=== PATIENT | male | born 1975 | race African-American/Black ===

== ENCOUNTER 2023-08-23 12:50 | Inpatient (IN) | payer OTHER, SELFPAY ==
[2023-08-21 16:54] VITALS: BP 149/103; BMI 31.8
[2023-08-21] MEDS: NSS 1000 IV ×2 (17:32→18:24)
[2023-08-21 17:49] LABS: % Basophils 0.8 % (0-2); % Eosinophils 0.3 % (0-6); % Immature Granulocytes 0.6 % (0-0.5); % Lymphocytes 24.4 % (20.5-51.1); % Monocytes 10.8 % (1.7-9.3); % Neutrophils 63.1 % (42.2-75.2); Absolute Lymphocytes 0.9 10^3/uL (1.2-3.4); Absolute Monocytes 0.4 10^3/uL (0.1-0.6); Absolute Neutrophils 2.3 10^3/uL (1.4-6.5); Hematocrit 39.1 % (39.0-52.0); Hemoglobin 12.9 g/dL (13.0-18.0); Mean Corpuscular Hgb 22.9 pg (27.0-31.0); Mean Corpuscular Volume 69.3 fL (80.0-94.0); Mean Platelet Volume 10.4 fL (7.4-10.4); Nucleated Red Blood Cells % 0 % (-); Platelet Count 245 10^3/uL (130-400); Red Blood Cell Count 5.64 10^6/uL (4.70-6.10); White Blood Cell Count 3.6 10^3/uL (4.8-10.8)
[2023-08-21 17:59] LABS: Blood Urea Nitrogen 16 mg/dl (9-20); Calcium 9.7 mg/dl (8.4-10.2); Carbon Dioxide 22 mmol/L (22-30); Chloride 101 mmol/L (98-107); Estimated Creatinine Clearance 95 ml/min; Glucose 97 mg/dl (70-99); Potassium 4.4 mmol/L (3.5-5.1); Sodium 135 mmol/L (135-145); eGFR > 60.00
--- NOTE | 2023-08-21 18:01 | ED.GENMED ---
History of Present Illness
General
Chief Complaint: Anal/Rectal Problem
Time Seen by Provider: 08/21/23 17:13
Travel History
Have you had any contact with someone who has COVID-19?: No
Do you have any symptoms of coronavirus? Fever > 100 degrees, chills, cough, shortness of breath, sore throat, loss of taste or smell, muscle aches, or headache?: No
History of Present Illness
History of Present Illness:
HPI: The patient been having abdominal pain and perianal pain for the past 1 month. The patient was admitted at [place] about a month ago and was found to be positive for Campylobacter and was placed on Rocephin, Flagyl and discharged on azithromycin.
CT at that time showed widespread lymphadenopathy with some concern for malignancy as well as proctocolitis. He tells me that the colorectal surgeon who sent him here was planning on doing exam under anesthesia tomorrow.
EXAM:
GENERAL: Well appearing in mild distress
HEENT: Moist oral mucosa
CARDIOVASCULAR: No murmurs, normal heart rate, regular rhythm, No chest wall tenderness
PULMONARY: No respiratory distress, breath sounds are clear and equal
ABDOMEN: Soft with no peritoneal signs, mild diffuse tenderness
PERIANAL: There appears to be a moderate-sized thrombosed external hemorrhoid which is tender to palpation
NEUROLOGIC: Excellent strength all extremities, no coordination deficits
PSYCHIATRIC: Appropriate mental status, normal insight and judgement
EXTREMITIES: Nontender, no edema, moves all extremities equally
SKIN: No rash, no lesions, scar noted to the right for
TIME OF INITIAL ENCOUNTER:
6 PM
NUMBER AND COMPLEXITY OF PROBLEMS ADDRESSED AT THE ENCOUNTER
� Chronic conditions affecting care: Other than earlier this month, there is no significant past medical history
� Acute Exacerbation and/or Progression of Chronic Illness: This is a subacute problem
� Differential Diagnosis includes: Malignancy, perianal/perirectal abscess, external hemorrhoid
AMOUNT AND/OR COMPLEXITY OF DATA TO BE REVIEWED AND ANALYZED
� I performed an independent evaluation of and my interpretation is:
EKG:
CT: CT imaging personally viewed and I agree with radiologist interpretation of abnormality in the rectosigmoid
X-rays:
Laboratory Studies: White count, hemoglobin 12.9, chemistries unremarkable
Other:
� Review of other/old records: I reviewed the records from [place] as summarized above
� Clinical information was obtained by an independent historian: None needed
� Prescriptions/Medications Considered but not given:
� Further testing considered but not performed:
RISK OF COMPLICATIONS AND/OR MORBIDITY OR MORTALITY OF PATIENT MANAGEMENT
� Social determinants of health affecting care: Lives at home
� Discussion with other providers: Communicated with Dr. Guerrero earlier in the day, hospitalist for admission
� Escalation of care including admission/observation vs risk of discharge considered: In discussion with Dr. Guerrero, he recommends patient stay in the hospital for n.p.o. after midnight and exam under anesthesia tomorrow.
Concern for malignancy.
Phy Exam
Physical Exam
Physical Exam:
See HPI
Course
Orders/Labs/Results
Orders:
Orders
08/21/23 17:17
CT Abd/pelvis W Iv Cont Urgent
Comment:
Reason For Exam: severe perianal pain sent by colorectal
08/21/23 17:18
0.9% Sodium Chloride 1000 ml [Nss] 1,000 ml IV BOLUS
08/21/23 17:31
Basic Metabolic Panel Urgent
Complete Blood Count/With Diff Urgent
08/21/23 18:04
HYDROmorphone [Dilaudid] 1 mg IV NOW STA
08/21/23 18:05
0.9% Sodium Chloride 1000 ml [Nss] 1,000 ml IV BOLUS
Ondansetron Injectable [Zofran] 4 mg IV NOW STA
08/21/23 19:35
Admit/Transfer Patient As Directed
Co-Sign Provider:
Level of Care: Observation services
Assign to:: Medical/Surgical
Physician / Group: [email or web address]
Diagnosis: large rectal mass with severe perirectal pain
Code Status As Directed
Resuscitation Status: Full Code
Abnormal Lab Results
08/21/23
17:31
WBC 3.6 L 10^3/uL
(4.8-10.8)
Hgb 12.9 L g/dL
(13.0-18.0)
MCV 69.3 L fL
(80.0-94.0)
MCH 22.9 L pg
(27.0-31.0)
RDW 15.0 H %
(11.5-14.5)
Absolute Lymphs (auto) 0.9 L 10^3/uL
(1.2-3.4)
Immature Gran % 0.6 H %
(0-0.5)
Monocytes % 10.8 H %
(1.7-9.3)
08/21/23 17:31
08/21/23 17:31
Vital Signs
Initial and Last Documented VS:
Initial Vital Signs
Temp Pulse Resp BP Pulse Ox
98.4 F 91 16 149/103 97
08/21/23 16:54 08/21/23 16:54 08/21/23 16:54 08/21/23 16:54 08/21/23 16:54
Last Documented Vital Signs
Temp Pulse Resp BP Pulse Ox
98.4 F 91 16 129/80 98
08/21/23 16:54 08/21/23 16:54 08/21/23 16:54 08/21/23 19:06 08/21/23 19:45
*Critical Care Note
Total Time (30-74mins, 75-104mins- exclusive of procedures): Not Applicable
ED Attending Note
-
Portions of this chart may have been created with voice recognition software.� Occasional wrong word or��sound alike� substitutions may have occurred due to the inherent limitations of voice recognition software.
Discharge Plan
Departure
Patient Disposition: Admit
Date of Disposition: 08/21/23
Time of Disposition: 19:19
Presentation/result/management discussed w/ accepting MD/DO: Hospitalist
Discharge Problem:
Carcinoma of rectosigmoid (colon)
Interventions
Interventions:
*Risk Screen - Suicide Last Done: 08/21/23 16:54
*General Assessment Last Done: 08/21/23 17:10
*Neglect/Abuse Screening Last Done: 08/21/23 16:54
ED- Fall Risk Assessment Last Done: 08/21/23 17:10
*ED COVID-19 Vaccine History Last Done: 08/21/23 16:54
RM-Azmxbb-Oujlxenpjj Assessment Last Done: 08/21/23 17:11
ED-Skin Assessment Last Done: 08/21/23 17:10
[2023-08-21] MEDS: ZOFRAN 4 MG IV (18:23)
[2023-08-21] MEDS: DILAUDID 1 MG IV (18:23)
[2023-08-21 19:06] VITALS: BP 129/80
--- NOTE | 2023-08-21 19:30 | HPS.HSE ---
Family Physician
-
Family Physician: NOT KNOW UNKNOWN - PT DOES
Chief Complaint
-
severe perirectal , recal mas, for EUA in AM
History of Present Illness
35M recently evaluated at [facility] for perirectal pain a month ago, CT noted widespread :LAD with concern for noeplastic process and proctocolitis. Micro POS for Campylobacter treated with IV CFTX and flagyl as inpatient and DC'd on on
azithromycin. He was followed up with Dr Chong as OP. F/U CT shows large partially obstructing mucosal-based mass at rectosigmoid c/w carcinoma and LAD again seen. Patient is intolerent to OP NATHALIA exam by Cher/CRS
Sent for hospitalist admission , NPO after MN and for EUA in am
Medical History
Past Medical History
Past Medical History: Reports None
Past Surgical History: Reports None
Social History
Tobacco: Non-smoker
Alcohol: None
Drug: None
Personal:
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
Family History
Family History: Not pertinent
Allergies / Home Medications
Allergies reflects when Allergies were last updated in [facility].
Home Medications with original date entered in [facility]
Allergy/Medication List:
Allergies
Allergy/AdvReac Type Severity Reaction Status Date / Time
No Known Allergies Allergy Unverified 08/21/23 16:56
Home Medications
No Meds [No Current Medications] 08/21/23
Review of Systems
-
Constitutional: Reports No Symptoms
EENT: Reports No Symptoms
Respiratory: Reports No Symptoms
Cardiac: Reports No Symptoms
Abdomen/GI: Reports Other (perirectal pain )
: Reports No Symptoms
Musculoskeletal: Reports No Symptoms
Skin: Reports No Symptoms
Neurological: Reports No Symptoms
Endocrine: Reports No Symptoms
Hematologic/Lymphatic: Reports No Symptoms
Psych: Reports No Symptoms
Physical Exam
Vital Signs
Vital Signs
Temp Pulse Resp BP Pulse Ox
98.4 F 91 16 129/80 96
08/21/23 16:54 08/21/23 16:54 08/21/23 16:54 08/21/23 19:06 08/21/23 19:15
Physical Exam
General: No Apparent Distress, Comfortable and Conversant
HEENT: NormoCephalic, Anicteric and Moist mucous membranes
Respiratory: Clear; No Wheezes, Rales or Rhonchi
Cardiac: S1/S2 and Regular Rhythm; No Murmur
Breast: Deferred by me
GI: Soft, Non Tender, Non Distended and Normal Bowel Sounds
Rectal: Deferred by Provider
Genito-urinary: Deferred by me
Musculoskeletal: No Edema
Skin: Warm and Dry
Neuro: AO x 3 and Nonfocal/grossly intact
Psych: Calm
Laboratory Results
-
08/21/23 17:31
08/21/23 17:31
Data Reviewed
-
CT Scan: Report Reviewed by me
Lab Data: Labs Reviewed by me
Old Records: Reviewed
Impression/Plan
-
Vital Signs
Temp Pulse Resp BP Pulse Ox
98.4 F 91 16 129/80 96
08/21/23 16:54 08/21/23 16:54 08/21/23 16:54 08/21/23 19:06 08/21/23 19:15
Data
WCC 3.6 Hgb 12.[address] AP w IV contrast
1. LARGE PARTIALLY OBSTRUCTING MUCOSAL-BASED MASS in the distal sigmoid colon and rectum most consistent with RECTOSIGMOID CARCINOMA.
2. Severe fecal distention of the SIGMOID COLON proximal to the obstruction with evidence for MILD ACUTE STERCORAL COLITIS.
3. EXTENSIVE METASTATIC RETROPERITONEAL LYMPHADENOPATHY.
4. Severe mesorectal inflammation and mild mesorectal metastatic lymphadenopathy.
No prior admission to
ASSESSMENT & PLAN
Perirectal pain
large partially obstructing mucosal-based mass at rectosigmoid c/w carcinoma with LAD
Portably malignancy
- Patient is intolerant to OP NATHALIA exam by Dr. Guerrero/ CRS
- NPO after MN
- IVF
- IV Toradol Analgesia PRN
- For EUA in OR tomorrow
- CRS consulted
DVT Px: SCD
Full code
Obs MS
[2023-08-21] MEDS: NORMOSOL-R 1000 IV (22:33)
[2023-08-21 23:49] VITALS: BP 146/107
[2023-08-22] VITALS (20 sets, daily range): BP systolic 100–155; BP diastolic 64–109; BMI 32.4; BMI 31.4
[2023-08-22] MEDS: TORADOL 15 MG IV ×2 (01:16→18:41)
[2023-08-22] MEDS: DILAUDID 1 MG IV (03:59)
[2023-08-22 06:56] LABS: Hematocrit 35.7 % (39.0-52.0); Hemoglobin 11.2 g/dL (13.0-18.0); Mean Corp Hgb Conc. 31.4 g/dL (33.0-37.0); Mean Corpuscular Hgb 22.6 pg (27.0-31.0); Mean Platelet Volume 11.4 fL (7.4-10.4); Platelet Count 215 10^3/uL (130-400); Red Blood Cell Count 4.96 10^6/uL (4.70-6.10); Red Cell Dist. Width 14.8 % (11.5-14.5); White Blood Cell Count 3.3 10^3/uL (4.8-10.8)
[2023-08-22 07:00] LABS: INR 1.23; PT 15.6 Sec (11.4-14.6)
[2023-08-22 07:01] LABS: APTT 32.9 Sec (23.4-35.0)
[2023-08-22 07:27] LABS: ALT (SGPT) 29 U/L (0-50); AST (SGOT) 33 U/L (17-59); Albumin 3.6 g/dl (3.5-5.0); Alkaline Phosphatase 64 U/L (38-126); Blood Urea Nitrogen 14 mg/dl (9-20); Calcium 8.7 mg/dl (8.4-10.2); Carbon Dioxide 22 mmol/L (22-30); Chloride 105 mmol/L (98-107); Estimated Creatinine Clearance 116 ml/min; Glucose 77 mg/dl (70-99); Potassium 4.5 mmol/L (3.5-5.1); Sodium 137 mmol/L (135-145); Total Bilirubin 1.1 mg/dl (0.2-1.3); Total Protein 6.2 g/dl (6.3-8.2); eGFR > 60.00
[2023-08-22 07:50] LABS: CEA 6.82 ng/ml
--- NOTE | 2023-08-22 08:57 | W.PN.HOSP.TC ---
Today's Communication/Plan
-
see plan
Assessment / Plan
Assessment / Plan
CT AP w IV contrast
1. � LARGE PARTIALLY OBSTRUCTING MUCOSAL-BASED MASS in the distal sigmoid colon and rectum most consistent with RECTOSIGMOID CARCINOMA.
2. � Severe fecal distention of the SIGMOID COLON proximal to the obstruction with evidence for MILD ACUTE STERCORAL COLITIS.
3. � EXTENSIVE METASTATIC RETROPERITONEAL LYMPHADENOPATHY.
4. � Severe mesorectal inflammation and mild mesorectal metastatic lymphadenopathy.
No prior admission to
ASSESSMENT & PLAN
Perirectal pain
large partially obstructing mucosal-based mass at rectosigmoid c/w carcinoma� with� LAD
- Patient is intolerant to OP NATHALIA exam by Dr. Guerrero/ CRS
-� NPO after MN
- IVF
- IV Toradol� Analgesia� PRN
- For EUA in OR today
- CRS consulted
DVT Px: SCD
Full code
Obs MS
Anticipated Discharge: 24 - 48 hours
Subjective/Interval History
-
Date of Service: August 22, 2023
no new complaints this AM
pain controlled
Objective Data
-
Labs:
Laboratory Results
08/22/23
06:13
WBC 3.3 L
Hgb 11.2 L
Hct 35.7 L
Plt Count 215
PT 15.6 H
INR 1.23
APTT 32.9
Sodium 137
Potassium 4.5
Chloride 105
Carbon Dioxide 22
BUN 14
Creatinine 0.9
Glucose 77
Calcium 8.7
Total Bilirubin 1.1
AST 33
ALT 29
Alkaline Phosphatase 64
Vital Signs:
Vital Signs
Temp Pulse Resp BP Pulse Ox
98.2 F 93 16 119/83 100
08/22/23 07:35 08/22/23 07:35 08/22/23 07:35 08/22/23 07:35 08/22/23 07:35
Review of Systems
-
History Source: Patient
All other systems: Reviewed and negative
Physical Exam
-
General: No Apparent Distress and Conversant
HEENT: PERRLA
Respiratory: Clear to Auscultation; Negative Wheezes
Cardiac: Regular Rhythm and S1/S2
GI: Soft and Nontender
Musculoskeletal: No Edema
Skin: Warm and Dry; Negative Rash
Neuro: AO x 3
Psych: Calm
Data Reviewed
-
Diagnostic Radiology: Report Reviewed by me
Labs: Labs Reviewed by me
--- NOTE | 2023-08-22 09:15 | WOUNDNOTE ---
[facility] RN Note: Stoma marked patient L side as requested by Susan Flanagan, Colorectal PA. Stoma marked LUQ and LLQ avoiding skin creases. Marked LUQ as 1st choice. Stoma marked patient in lying, sitting and standing positions. Suspect patient's
abdomen is distended making stoma marking challenging. Patient at risk for ostomy pouch leakage especially LLQ d/t body habitus. Patient mentioned he has lost weight. LUQ stoma domenica 5.8cm to L of midline and 9cm above umbilical line. LLQ stoma domenica
7.6cm to L of midline and 1cm distal to umbilical line. Patient instructed surgeon makes the final decision with stoma placement. [place] texted Susan Flanagan update Re: LUQ stoma marked as 1st choice, tiger texted pic of stoma youngblood including dotted
line where skin crease is and also along distal L rib cage are located stating patient at risk for pouch leakage r/t body habitus. Patient stated he lives with his daughter.
--- NOTE | 2023-08-22 10:52 | CON.CRS ---
Addendum entered and electronically signed by Ghanshyam Guerrero MD 08/22/23 13:47:
I saw and examined the patient.
The PA's note was reviewed and I agree with the note.
Comment:
Seen in am.
History, vitals, labs, imaging reviewed. Patient seen and examined.
47 yo M with anal and abdominal pain and CT findings of partial LBO due to rectosigmoid mass (probable malignancy) with significant retroperitoneal lymphadenopathy. Discussed situation with patient in detail. Recommended trip to OR for exploratory
laparotomy, possible partial bowel resection; stoma creation; flexible sigmoidoscopy. Risks/benefits discussed. Risks discussed including but not limited to bleeding, infection, bowel or organ injury, hernia, and anesthetic risks. He agreed to
proceed.
Original Note:
Consultation
-
Date/Time Consultation Requested: 08/21/2023, 23:01
Date/Time Consultation Performed: 08/22/2023, 07:20
Requesting Provider: Garrison Nguyễn MD
Performing Provider: Ghanshyam Guerrero MD
Reason for Consultation: rectal cancer
Medical History
-
Chief Complaint: perirectal pain
History of Present Illness:
47-year-old male sent from clinic by Dr. Guerrero yesterday with a main complaint of anal pain/hemorrhoids. Patient has an interesting history, much of it derived from paperwork he brought in. Apparently he went to the ER at [facility] about a month ago
with complaints of abdominal pain, diarrhea, and fevers. He was admitted for 4 days for the above. Per records, he underwent a CT scan of the abdomen and pelvis on 07/26/2023 which revealed proctocolitis with stool throughout the colon and
widespread bulky abdominal lymphadenopathy. This was described as 'could be due to colitis, however these findings are suspicious for neoplastic process. Recommend PET/CT '. The patient apparently was also diagnosed via stool testing with
Campylobacter enteritis and was treated with antibiotics. He is ultimately discharged on Zithromax. On discharge she was recommended to undergo repeat CT scan after resolution of his proctocolitis and a screening colonoscopy for his mild anemia as
he has never had a colonoscopy before. The patient is currently off his Zithromax. On discussion he currently denies diarrhea. In fact he has not had a BM in 4 days now and is concerned about this. He does admit however to passing wind. He also
admits to chronic right-sided abdominal discomfort. Denies nausea or vomiting. Is unclear whether he is lost weight.
As for his main complaint of anal pain, he also has anal mucus production which he is of unclear cause. Has diminished appetite. The anal pain has been worsening but has been going on since July. He describes now having 'anal bumps '. Denies
bleeding. He is using topical Preparation H with questionable benefit. Family history negative for colorectal issues.
CT A/P in the Er shows a LARGE PARTIALLY OBSTRUCTING MUCOSAL-BASED MASS in the distal sigmoid colon and rectum most consistent with RECTOSIGMOID CARCINOMA, severe fecal distention of the SIGMOID COLON proximal to the obstruction with evidence for
MILD ACUTE STERCORAL COLITIS, EXTENSIVE METASTATIC RETROPERITONEAL LYMPHADENOPATHY, and severe mesorectal inflammation and mild mesorectal metastatic lymphadenopathy.
Past Medical History
Past Medical History: None
Past Surgical History: None
Social History
Tobacco: Non-Smoker
Alcohol: None
Employment: Not Employed
Family History
Family History: Reviewed & Not Pertinent
Allergies / Home Medications
Allergy/AdvReac Type Severity Reaction Status Date / Time
No Known Allergies Allergy Unverified 08/21/23 16:56
Medication Instructions Recorded Confirmed Type
No Meds [No Current Medications] 08/21/23 08/21/23 History
Review of Systems
-
History Source: Patient
Constitutional: Fever
Abdomen/GI: Abdominal Pain, Diarrhea, Anorexia and Pain (anal)
: Frequency (stools)
A 10 point review of systems was completed, and was negative except as per HPI.
Physical Exam
Vital Signs
Temp 98.2 F 08/22/23 07:35
Pulse 93 08/22/23 07:35
Resp Rate 16 08/22/23 07:35
Blood pressure 119/83 08/22/23 07:35
SaO2 100 08/22/23 07:35
08/21/23 08/22/23 08/23/23
06:59 06:59 06:59
Actual Weight 97.522 kg 99.5 kg
Body Mass Index (BMI) 32.4
Lab Results / Allergies
08/22/23 06:13
08/22/23 06:13
WBC 3.3 10^3/uL (4.8-10.8) L 08/22/23 06:13
Hgb 11.2 g/dL (13.0-18.0) L 08/22/23 06:13
Hct 35.7 % (39.0-52.0) L 08/22/23 06:13
Plt Count 215 10^3/uL (130-400) 08/22/23 06:13
Abs Immat Gran (auto) 0.0 10^3/uL (0-0.05) 08/21/23 17:31
Neutrophils % 63.1 % (42.2-75.2) 08/21/23 17:31
Allergy/AdvReac Type Severity Reaction Status Date / Time
No Known Allergies Allergy Unverified 08/21/23 16:56
Physical Exam
General: Well Developed, Well Nourished and No Apparent Distress
GI: Soft, Non Distended and Tender (r side abdominal)
Rectal: Other (unable to tolerate)
Neuro: AO x 3
Data Reviewed
-
CT Scan: Image Personally Visualized and interpreted, Report Reviewed by me and Discussed with Patient
Labs: Labs Reviewed by me and Discussed with Patient
Old Records: Reviewed
Assessment / Plan
-
Assessment: 47yo male with a month history of abdominal pain/fevers/anoxeria/frequent stools who was seen in clinic by Dr. Guerrero and sent to the ER, CT shows a large partially obstructing carcinoma in the distal sigmoid colon and rectum
Plan:
1. OR today (early afternoon) for diverting colostomy. Discussed with patient.
2. Remain NPO.
3. Wound RN for stoma marking.
4. Pre-op orders in place.
5. Pre-op antibiotics ordered.
[2023-08-22] MEDS: TYLENOL 1000 MG PO (11:23)
[2023-08-22] MEDS: NEURONTIN 600 MG PO (11:23)
[2023-08-22] MEDS: HEPARIN 5000 UNITS SC (11:23)
--- NOTE | 2023-08-22 17:59 | W.IMMPOSTOP ---
Addendum entered and electronically signed by Ghanshyam Guerrero MD 08/22/23 18:38:
Updated patient's daughter, Oneida, in waiting area.
Addendum entered and electronically signed by Ghanshyam Guerrero MD 08/22/23 18:37:
Also with findings: reducible umbilical hernia
Original Note:
Surgical Immed Post Op Note
-
Primary Surgeon: Pk Guerrero MD
Assisting Surgeon: PARISA Weston
Pre-op Diagnosis: large bowel obstruction
Post-op Diagnosis: same
Procedure Performed: 1) flexible sigmoscopy with cold forceps biopsies 2) exploratory laparotomy 3) extended right colectomy 4) loop sigmoid colostomy 5) primary umbilical hernia repair
Anesthesia Type: general plus local
Specimen / Cultures: 1) biosies rectal mass 2)extended right colon
Estimated Blood Loss: 100 cc
Complications: no immediate
Operative Findings: 1) rectal mass 2) large bowel obstruction 3) serosal tears/bowel attenuation of R colon and proximal transverse colon
NGT in stomach (confirmed in OR).
Cordero in bladder.
Will send to IMU.
[2023-08-22] MEDS: DILAUDID 0.5 MG IV ×3 (18:45→19:33)
[2023-08-22] MEDS: OFIRMEV 100 IV (18:46)
[2023-08-22] MEDS: NORMOSOL-R 1000 IV ×2 (19:08→21:59)
--- NOTE | 2023-08-22 20:19 | PTCARENOTE ---
Patient arrived to room 3341, drowsy and confused but follows commands. 2L in place. CHG bath done. Pt reporting pain that subsides after repositioning. C/o rectal pain. Abd dressing with small drainage, area marked. Abd soft, hypo BS. Colostomy
intact. Cordero with clear yellow urine at bedside. NGT placed to LIWS. Call buenrostro within reach.
--- NOTE | 2023-08-22 20:44 | SUR.PHASEI ---
patient post op, staring, slow to respond verbally, but follows commands, c/o of rectal pain, urge to void and urge to defecate. Explained surgery and mcqueen - medicated for pain with Ofirmev, toradol and dilaudid x3 - able to sleep after meds.
melissa vizcarra NG placement verified to low intermittent wall suction - small amount green bile drainage. Family called at patient's request with status and room assignment
--- NOTE | 2023-08-22 22:12 | PTCARENOTE ---
Family members( ex and daughter Elmira) called the nurses station requesting info and an update on pt.
Daughter- Summer, stated prior to surgery pt only wanted info released to her.
Pt more awake and oriented at this time. This RN confirmed with patient that no information to be released to any family members except daughter Summer who is at the bedside at this time.
[2023-08-23] VITALS (15 sets, daily range): BP systolic 87–127; BP diastolic 52–92; BMI 31.7
[2023-08-23] MEDS: OFIRMEV 100 IV ×3 (01:34→12:43)
[2023-08-23] MEDS: TORADOL 15 MG IV ×4 (01:41→20:38)
[2023-08-23] MEDS: NORMOSOL-R 1000 IV ×3 (03:43→22:55)
[2023-08-23 05:51] LABS: % Immature Granulocytes 0.3 % (0-0.5); % Lymphocytes 6.7 % (20.5-51.1); % Monocytes 6.5 % (1.7-9.3); % Neutrophils 86.5 % (42.2-75.2); Absolute Lymphocytes 0.6 10^3/uL (1.2-3.4); Absolute Monocytes 0.6 10^3/uL (0.1-0.6); Absolute Neutrophils 7.5 10^3/uL (1.4-6.5); Hematocrit 38.4 % (39.0-52.0); Hemoglobin 11.8 g/dL (13.0-18.0); Mean Corp Hgb Conc. 30.7 g/dL (33.0-37.0); Mean Corpuscular Hgb 22.6 pg (27.0-31.0); Mean Corpuscular Volume 73.6 fL (80.0-94.0); Mean Platelet Volume 11.2 fL (7.4-10.4); Nucleated Red Blood Cells % 0 % (-); Platelet Count 224 10^3/uL (130-400); Red Blood Cell Count 5.22 10^6/uL (4.70-6.10); Red Cell Dist. Width 15.5 % (11.5-14.5); White Blood Cell Count 8.6 10^3/uL (4.8-10.8)
[2023-08-23] MEDS: MORPHINE SULFATE 2 MG IV (05:58)
[2023-08-23 06:20] LABS: Blood Urea Nitrogen 19 mg/dl (9-20); Carbon Dioxide 18 mmol/L (22-30); Chloride 107 mmol/L (98-107); Estimated Creatinine Clearance 94 ml/min; Glucose 89 mg/dl (70-99); Magnesium 2.1 mg/dl (1.6-2.3); Sodium 136 mmol/L (135-145); eGFR > 60.00
[2023-08-23] MEDS: NSS (PRESERVATIVE FREE) 10 ML IV (08:14)
[2023-08-23] MEDS: PROTONIX IV 40 MG IV (08:14)
--- NOTE | 2023-08-23 09:30 | WOUNDNOTE ---
[facility] RN note: Patient s/p loop colostomy LLQ. Appliance and stoma bridge intact. Liquid soft formed stool in pouch. Daughter Summer present. Instructed patient and daughter how to empty pouch, cut wafer and snap on pouch. Plan to do appliance change
teaching either Saturday or Saturday. Ostomy supplies given. Patient gave permission to order a [employer] ostomy secure starter kit and he signed [employer] secure starter kit fax form. Daughter to call with her schedule for Saturday and Saturday to
coordinate a teaching session.
--- NOTE | 2023-08-23 09:35 | WOUNDNOTE ---
[facility] RN note: Patient s/p loop colostomy LLQ. Appliance and stoma bridge intact. Liquid soft formed stool in pouch. Daughter Summer present. Instructed patient and daughter how to empty pouch, cut wafer and snap on pouch. Plan to do appliance change
teaching either Saturday or Saturday. Ostomy supplies given (Johnny wafer # [id number], Tiesha seals and Johnny pouch # [id number]). Patient gave permission to order a [employer] ostomy secure starter kit and he signed [employer] secure starter kit fax form.
Daughter to call with her schedule for Saturday and Saturday to coordinate a teaching session.
[2023-08-23] MEDS: MORPHINE SULFATE 4 MG IV ×2 (10:11→15:16)
[2023-08-23] MEDS: ANESTHETIC LOZENGE 1 LOZENGE PO ×2 (11:06→23:32)
--- NOTE | 2023-08-23 11:19 | PTCARENOTE ---
As per patient and daughter Summer at bedside, no information is to be given about patient to anyone except Summer. Pt made confidential at this time. Pt's daughter provided a list of patient's children names, and his current SO who may come visit.
Visiting policy explained to patient and Summer. Plan discussed, orders rec'd, NGT to 80 mmHg cont suction, irrigated with 30mls tap water at this time. Pt medicated with PRN Morphine for abd/rectal pain-see MAR for details.
--- NOTE | 2023-08-23 11:30 | WOUNDNOTE ---
[facility] RN Aster dropped off colostomy teaching folder to patient's room. Aster stated patient's daughter Summer stated she will be available on Saturday for ostomy care teaching.
--- NOTE | 2023-08-23 11:30 | W.PN.CRS1 ---
Today's Communication / Plan
-
Continue NGT to LCS
DC Cordero
Start DVT PPx
Appreciate WOCN
Assessment/Plan
-
47-year-old male, no PMH, who presents with severe perianal pain, CT showing large, partially obstructing, rectosigmoid mass concerning for carcinoma with severe distention of sigmoid and possible stercoral colitis, as well as metastatic
retroperitoneal lymphadenopathy
POD 1 flexible sigmoidoscopy with biopsy of rectosigmoid mass, ex lap with loop colostomy, extended right hemicolectomy with, ileocolic anastomosis, UHR
Wbc 8.6, Hb 11.8 from 11.6, Cr 1.1
�Continue n.p.o. with IVF and NGT to LCS
� Continue pain control with IV Toradol, IV Tylenol and IV morphine as needed
� No need for antibiotics
� Will start DVT PPx with Lovenox
� DC Cordeor, monitor for void
� Appreciate WOCN for ostomy teaching and supplies, will need VNA on discharge
� Follow-up path
� Appreciate hospitalist
Subjective Data
Subjective Data
Date of Service: August 23, 2023
No overnight events.
Pain controlled.
Denies nausea/vomiting. NG tube in place.
Ostomy swollen with stool in bag + Cordero
Objective Data
-
Vital Signs
Temp Pulse Resp BP Pulse Ox
98.9 F 104 17 108/78 98
08/23/23 07:32 08/23/23 06:30 08/23/23 06:30 08/23/23 06:09 08/23/23 06:30
Intake & Output
08/22/23 08/23/23 08/24/23
06:59 06:59 06:59
Intake Total 1300 / 1300
Output Total 770 / 770
Balance 530 / 530
Intake:
IV fluids (Total) 1200 / 1200
normosol 200 / 200
IV piggybacks 100 / 100
Amount instilled into GI Tube ( 0 / 0
Total)
[place] Sump 0 / 0
Output:
Gastrointestinal tube output (
Total)
[place] Sump
Urine, Cordero 750 / 750
Lab Results
08/23/23 05:25
08/23/23 05:25
Physical Exam
-
General: No Acute Distress and AOx3
HEENT: Grossly Normal
Abdomen: Soft, Non Distended, Tender (Appropriately tender near incision) and Other (Ostomy pink, very edematous, productive of brown stool)
Skin: Warm and Dry
Wound: No Signs of Infection, Dressing in Place and No Skin Erythema
--- NOTE | 2023-08-23 13:34 | WOUNDNOTE ---
[facility] RN note: faxed patient signed [employer] ostomy starter kit request to [employer].
--- NOTE | 2023-08-23 14:18 | PTCARENOTE ---
Pt's mcqueen catheter was removed at 13:00, pt due to void at 7 pm. Ofirmev and Toradol administered per orders, pt repositioned to side lying position with assistance of daughter Summer. 4 additional children remain at bedside. Pt declines to get oob
at this time. Education provided re: importance of early mobility. Pt remains very pleasant and agreeable. Safe environment maintained.
--- NOTE | 2023-08-23 15:14 | CM ---
Patient who is s/p flex sigmoid with biopsy rectosigmoid mass, ex lap with loop colostomy, right hemicolectomy. NPO/NGT. Cordero. IV Ofirmev, IV Toradol prn, IBV MS prn. [facility] nurse for ostomy/teaching. Per nurse; patient declined to get OOB today.
Met with patient and daughter Oneida;
the patient resides with his daughter Oneida in a 2 story house.
He has been independent in ADLs and ambulation.
The patient has no DME or prior VN.
PCP - Edson Francisco, KIRAN, [facility]
Pharmacy - [facility]
Offered VN for colostomy care/teaching at home and patient/daughter agree. Patient has no agency preference.
Spoke with [facility]; [facility].
Referral to VNA [facility]. If VNA declines, will try [facility].
Plan follow up VNA referral for acceptance.
Plan follow patient's mobility.
Plan home with VN for ostomy care.
[2023-08-23] MEDS: LOVENOX 40 MG SC (17:13)
[2023-08-24] VITALS (12 sets, daily range): BP systolic 84–153; BP diastolic 51–133; BMI 31.6
[2023-08-24] MEDS: TORADOL 15 MG IV ×4 (01:03→18:43)
[2023-08-24] MEDS: MORPHINE SULFATE 4 MG IV ×2 (02:37→08:13)
--- NOTE | 2023-08-24 03:15 | PTCARENOTE ---
Addendum entered by Trixie Ricks RN 08/24/23 05:40:
Pt morning labs came back H&H having a drop to 9.2/28.7. Pt AAOx3 vitas are stable at this time, Night TRACK MAN made aware.
Original Note:
Pt uncomfortably through nigh, positional changed attempted along with standing at bed side. Pt tolerated well and 'felt better'. Still having some pain, medication given see aug. Pt NG tube in place and tolerating well, Q4 flushes. Pt bladder
scanned and straight cathed per protocol. Assessment care and vitals as charted.
[2023-08-24 05:19] LABS: Hematocrit 28.7 % (39.0-52.0); Hemoglobin 9.2 g/dL (13.0-18.0); Mean Corp Hgb Conc. 32.1 g/dL (33.0-37.0); Mean Corpuscular Hgb 22.5 pg (27.0-31.0); Mean Corpuscular Volume 70.3 fL (80.0-94.0); Mean Platelet Volume 11.1 fL (7.4-10.4); Platelet Count 181 10^3/uL (130-400); Red Blood Cell Count 4.08 10^6/uL (4.70-6.10); Red Cell Dist. Width 15.2 % (11.5-14.5); White Blood Cell Count 5.3 10^3/uL (4.8-10.8)
--- NOTE | 2023-08-24 05:54 | W.PN.UPDATE ---
Update Note
Progress Note Update
H&H drop from 11.8-9.2 and 38.4-28.7. New colostomy pt with brick colored stool since yesterday, stable VS, patient asymptomatic, will order H&H q6hrs, Patient received 3L fluids yesterday to today, probably dilutional.
[2023-08-24] MEDS: PROTONIX IV 40 MG IV (08:14)
[2023-08-24] MEDS: NSS (PRESERVATIVE FREE) 10 ML IV (08:14)
[2023-08-24] MEDS: NORMOSOL-R 1000 IV ×2 (09:20→19:39)
--- NOTE | 2023-08-24 11:59 | W.PN.CRS1 ---
Today's Communication / Plan
-
� NGT clamping trial (possible liquids later)
� Hgb slightly lower. CIVIL PREPAREDNESS COORDINATOR has ordered a repeat Hgb.
� Continue pain control with IV Toradol pending a repeat Hgb. Morphine changed to Dilaudid
� No need for antibiotics
� Continue Lovenox if Hgb remains stable
� Reinsert Cordero if unable to void
� Appreciate [facility] for ostomy teaching and supplies, will need VNA on discharge
� Follow-up path
� Appreciate hospitalist
� 2 daughters updated at bedside
Assessment/Plan
-
47-year-old male, no PMH, who presents with severe perianal pain, CT showing large, partially obstructing, rectosigmoid mass concerning for carcinoma with severe distention of sigmoid and possible stercoral colitis, as well as metastatic
retroperitoneal lymphadenopathy
POD 2 flexible sigmoidoscopy with biopsy of rectosigmoid mass, ex lap with loop sigmoid colostomy, extended right hemicolectomy with, ileocolic anastomosis, UHR
Wbc 5.2, Hgb lower at 9.2 g/dL (anemia due to chronic blood loss, dilutional, and some intraop blood loss)
Subjective Data
Procedure
08/22/23 - Flexible sigmoidoscopy with biopsies, extended right colectomy, loop sigmoid colostomy and umbilical hernia repair
Subjective Data
Date of Service: August 24, 2023
He is having some incisional discomfort that is only partially relieved by the morphine. He denies any nausea but is complaining of throat pain from the NG tube. The ostomy is functioning. He has required a couple of straight catheterizations
The Cordero catheter was removed.
Objective Data
-
Vital Signs
Temp Pulse Resp BP Pulse Ox
99.3 F 104 14 118/82 96
08/24/23 07:15 08/24/23 10:00 08/24/23 10:00 08/24/23 10:00 08/24/23 10:00
Intake & Output
03/22/24 03/23/24 03/24/24
06:59 06:59 06:59
Intake Total 1300 / 1300 2630 / 2630
Output Total 770 / 770 1500 / 1500
Balance 530 / 530 1130 / 1130
Intake:
Oral fluids 0 / 0
IV fluids (Total) 1200 / 1200 2400 / 2400
normosol 200 / 200
IV piggybacks 100 / 100 110 / 110
Amount instilled into GI Tube ( 0 / 0 120 / 120
Total)
[place] 0 / 0 120 / 120
Output:
Liquid stool amount 150 / 150
Colostomy 150 / 150
Gastrointestinal tube output ( 20 / 20 400 / 400
Total)
[place] 20 / 20 400 / 400
Urine, Cordero 750 / 750 450 / 450
Straight cath output 500 / 500
Lab Results
08/23/23 05:25
Physical Exam
-
General: No Acute Distress
Abdomen: Soft, Non Distended, Non Tender and Other (Lots of flatus in the ostomy appliance)
Extremities: No Calf Tenderness
Wound: Dressing in Place
[2023-08-24 12:51] LABS: Hematocrit 28.8 % (39.0-52.0); Hemoglobin 9.4 g/dL (13.0-18.0)
--- NOTE | 2023-08-24 12:53 | PTCARENOTE ---
Pt tolerated NGT clamping trial well. Removed per orders. Pt visibly in good spirits and smiling upon removal. Ok for small sips per surgical team then advance to clears.
[2023-08-24] MEDS: DILAUDID 1 MG IV ×2 (15:29→21:49)
[2023-08-24] MEDS: LOVENOX 40 MG SC (18:42)
[2023-08-24 19:20] LABS: Hematocrit 27.7 % (39.0-52.0); Hemoglobin 9.1 g/dL (13.0-18.0)
[2023-08-25] VITALS (7 sets, daily range): BP systolic 119–142; BP diastolic 88–107
--- NOTE | 2023-08-25 01:54 | PTCARENOTE ---
Pt appears to be in great spirits. Pt up walking around with daughters and tech then fully bathed. Pain medication given later for ABD pain. Pt not having any difficultly urinating at this time. Assessment care and vitals as charted.
[2023-08-25] MEDS: TORADOL 15 MG IV ×4 (02:15→17:21)
[2023-08-25] MEDS: DILAUDID 1 MG IV ×5 (03:41→21:22)
[2023-08-25 04:01] LABS: Hemoglobin 9.7 g/dL (13.0-18.0); Mean Corp Hgb Conc. 32.3 g/dL (33.0-37.0); Mean Corpuscular Hgb 22.8 pg (27.0-31.0); Mean Corpuscular Volume 70.6 fL (80.0-94.0); Mean Platelet Volume 10.8 fL (7.4-10.4); Platelet Count 187 10^3/uL (130-400); Red Blood Cell Count 4.25 10^6/uL (4.70-6.10); Red Cell Dist. Width 15.2 % (11.5-14.5)
[2023-08-25 04:25] LABS: Blood Urea Nitrogen 20 mg/dl (9-20); Calcium 8.4 mg/dl (8.4-10.2); Carbon Dioxide 26 mmol/L (22-30); Chloride 107 mmol/L (98-107); Estimated Creatinine Clearance > 125 ml/min; Glucose 83 mg/dl (70-99); Magnesium 2.2 mg/dl (1.6-2.3); Potassium 4.1 mmol/L (3.5-5.1); Sodium 138 mmol/L (135-145); eGFR > 60.00
[2023-08-25] MEDS: NORMOSOL-R 1000 IV (06:31)
[2023-08-25] MEDS: PROTONIX IV 40 MG IV (08:24)
[2023-08-25] MEDS: NSS (PRESERVATIVE FREE) 10 ML IV (08:25)
--- NOTE | 2023-08-25 09:00 | PTCARENOTE ---
Pt AAAOx3 some abd pain and anal pain. Pt moves around walks to BR with assist 1. Daughters at bedside offering help with patient care
--- NOTE | 2023-08-25 11:24 | W.PN.CRS1 ---
Today's Communication / Plan
-
� Advance to full liquids today
� Hgb stable. Continue to monitor.
� Continue pain control with IV Toradol, add Tylenol and continue Dilaudid
� No need for antibiotics
� Continue Lovenox/SCD's and ambulation for DVT prophylaxis
� Voiding better and urine output adequate
� Appreciate [facility] for ostomy teaching and supplies, will need VNA on discharge
� Follow-up path
� Appreciate hospitalist
� Daughters updated at bedside
Assessment/Plan
-
47-year-old male, no PMH, who presents with severe perianal pain, CT showing large, partially obstructing, rectosigmoid mass concerning for carcinoma with severe distention of sigmoid and possible stercoral colitis, as well as metastatic
retroperitoneal lymphadenopathy
POD 3 flexible sigmoidoscopy with biopsy of rectosigmoid mass, ex lap with loop sigmoid colostomy, extended right hemicolectomy with, ileocolic anastomosis, UHR
Wbc 4.0, Hgb stable at 9.7 (was 9.1 g/dL (anemia due to chronic blood loss, dilutional, and some intraop blood loss)
Subjective Data
Procedure
08/22/23 - Flexible sigmoidoscopy with biopsies, extended right colectomy, loop sigmoid colostomy and umbilical hernia repair
Subjective Data
Date of Service: August 25, 2023
His pain is better (abdominal and rectal) on Dilaudid. He is tolerating clear liquids and the ostomy continues to function with no gross bleeding.
Objective Data
-
Vital Signs
Temp Pulse Resp BP Pulse Ox
98.8 F 96 24 142/105 98
08/25/23 11:24 08/25/23 10:00 08/25/23 10:00 08/25/23 08:01 08/25/23 10:00
Intake & Output
08/24/23 08/25/23 08/26/23
06:59 06:59 06:59
Intake Total 2630 / 2630 1640 / 1640
Output Total 1500 / 1500 1210 / 1210 300 / 300
Balance 1130 / 1130 430 / 430 -300 / -300
Intake:
Oral fluids 0 / 0 440 / 440
IV fluids (Total) 2400 / 2400 1200 / 1200
IV piggybacks 110 / 110
Amount instilled into GI Tube ( 120 / 120
Total)
[place] Sump 120 / 120
Output:
Liquid stool amount 150 / 150 210 / 210 75 / 75
Colostomy 150 / 150 210 / 210 75 / 75
Gastrointestinal tube output ( 400 / 400
Total)
[place] Sump 400 / 400
Urine, Cordero 450 / 450
Urine, Voided 1000 / 1000 225 / 225
Straight cath output 500 / 500
Lab Results
08/25/23 03:45
08/25/23 03:45
Physical Exam
-
General: No Acute Distress
Abdomen: Soft, Non Distended and Other (Stoma is healthy and functioning)
Extremities: No Calf Tenderness
Wound: Dressing Changed (Moderate amount of old bloody drainage)
[2023-08-25] MEDS: NORMOSOL-R IV (15:29)
[2023-08-25] MEDS: LOVENOX 40 MG SC (17:21)
[2023-08-26] VITALS (11 sets, daily range): BP systolic 119–153; BP diastolic 86–107; PULSE 77; O2SAT 100; BMI 31.5
[2023-08-26] MEDS: TORADOL 15 MG IV ×4 (01:58→19:23)
[2023-08-26] MEDS: DILAUDID 1 MG IV ×2 (01:59→06:12)
--- NOTE | 2023-08-26 04:58 | PTCARENOTE ---
Pain continues to abd and rectal area. Prn iv dilaudid for pain management; offered ice packs and repositioning for comfort. Pt is ambulating to BR with 1 person assist and FWW. Abd dressing changed per order; min. to mod. serosang drainage. Pt
emptied colostomy with assistance. Denies nausea or vomiting. Tele showing NSR. Daughter, Summer, at bedside and supportive of patient. Call buenrostro within reach. Pt calls for assistance appropriately.
[2023-08-26 05:35] LABS: Hematocrit 33.1 % (39.0-52.0); Hemoglobin 10.2 g/dL (13.0-18.0); Mean Corp Hgb Conc. 30.8 g/dL (33.0-37.0); Mean Corpuscular Hgb 22.3 pg (27.0-31.0); Mean Corpuscular Volume 72.4 fL (80.0-94.0); Mean Platelet Volume 10.9 fL (7.4-10.4); Platelet Count 214 10^3/uL (130-400); Red Blood Cell Count 4.57 10^6/uL (4.70-6.10); Red Cell Dist. Width 14.8 % (11.5-14.5); White Blood Cell Count 3.2 10^3/uL (4.8-10.8)
[2023-08-26 06:10] LABS: Blood Urea Nitrogen 13 mg/dl (9-20); Carbon Dioxide 27 mmol/L (22-30); Chloride 102 mmol/L (98-107); Estimated Creatinine Clearance > 125 ml/min; Glucose 86 mg/dl (70-99); Potassium 4.2 mmol/L (3.5-5.1); Sodium 136 mmol/L (135-145); eGFR > 60.00
--- NOTE | 2023-08-26 08:38 | W.PN.CRS1 ---
Today's Communication / Plan
-
low residue
dibucaine
po oxycodone
Assessment/Plan
-
POD#4 flexible sigmoidoscopy with biopsy of rectosigmoid mass, ex lap with loop sigmoid colostomy, extended right hemicolectomy with, ileocolic anastomosis, UHR
1. Advance diet to low residue.
2. Hgb stable. Continue to monitor.
3. Continue pain control with IV Toradol, add Tylenol and continue Dilaudid IV PRN, add oxycodone po.
4. No need for antibiotics.
5. Continue Lovenox/SCD's and ambulation for DVT prophylaxis.
6. Dibucaine ointment to rectal area PRN for pain.
7. Appreciate [facility] for ostomy teaching and supplies, will need VNA on discharge.
8. Follow-up path. Still pending.
9. Appreciate hospitalist.
10. Slightly hypertensive, I have reached out to the hospitalist.
Subjective Data
Procedure
08/22/23 - Flexible sigmoidoscopy with biopsies, extended right colectomy, loop sigmoid colostomy and umbilical hernia repair
Subjective Data
Date of Service: August 26, 2023
Patient states he has some blood in his stool. He has no nausea or vomiting. He feels 'okay'. He is urinating and has flatus.
Objective Data
-
Vital Signs
Temp Pulse Resp BP Pulse Ox
98.7 F 81 16 139/102 99
08/26/23 03:18 08/26/23 06:00 08/26/23 06:00 08/26/23 06:00 08/26/23 06:00
Intake & Output
08/25/23 08/26/23 08/27/23
06:59 06:59 06:59
Intake Total 1640 / 1640 1979 / 1979
Output Total 1210 / 1210 1575 / 1575
Balance 430 / 430 405 / 405
Intake:
Oral fluids 440 / 440 1280 / 1280
IV fluids (Total) 1200 / 1200 700 / 700
Output:
Liquid stool amount 210 / 210 175 / 175
Colostomy 210 / 210 175 / 175
Urine, Voided 1000 / 1000 1400 / 1400
Other:
Number of approximated MODERATE 2
amounts of urine
Lab Results
08/26/23 05:18
08/26/23 05:18
Physical Exam
-
General: No Acute Distress and AOx3
Abdomen: Soft, Non Distended, Non Tender and Other (colostomy warm and pink with stoma robles in place)
Skin: Warm and Dry
Incision: Clear, Dry, Intact
[2023-08-26] MEDS: PROTONIX IV 40 MG IV (08:39)
[2023-08-26] MEDS: NSS (PRESERVATIVE FREE) 10 ML IV (08:39)
--- NOTE | 2023-08-26 08:50 | W.PN.HOSP.TC ---
Today's Communication/Plan
-
Add on Iron studies
If blood pressure remains elevated we can add Norvasc 2.5 mg daily
Treat pain first
Onc eval
Assessment / Plan
Assessment / Plan
CT AP w IV contrast
1. � LARGE PARTIALLY OBSTRUCTING MUCOSAL-BASED MASS in the distal sigmoid colon and rectum most consistent with RECTOSIGMOID CARCINOMA.
2. � Severe fecal distention of the SIGMOID COLON proximal to the obstruction with evidence for MILD ACUTE STERCORAL COLITIS.
3. � EXTENSIVE METASTATIC RETROPERITONEAL LYMPHADENOPATHY.
4. � Severe mesorectal inflammation and mild mesorectal metastatic lymphadenopathy.
No prior admission to
ASSESSMENT & PLAN
On examination awake alert and oriented
Not in any distress
Abdomen laparotomy wound
Colostomy with brown stool
No pedal edema no calf tenderness
Bowel sounds are appreciated
#Large partially obstructing mucosal-based mass at rectosigmoid c/w carcinoma�
Severe fecal distention of the sigmoid colon proximal to the obstruction with evidence of stercoral colitis
Extensive metastatic retroperitoneal lymphadenopathy
Severe mesorectal inflammation and mild mesorectal metastatic lymphadenopathy.
Patient underwent flexible sigmoidoscopy, exploratory laparotomy, extended right colectomy for ischemia, loop sigmoid colostomy creation, primary umbilical hernia repair surgery by Dr. Guerrero on 08/22/2023. Diet advanced to full liquids being
advance to low residue diet today
Patient has anal pain-discussed with colorectal for local antispasmodic/analgesics
Continue Dilaudid, add oxycodone
Patient voiding good
Ostomy care/teaching
Hematology oncology evaluation
CEA 6.82
#Significant weight loss by history
# Anemia likely secondary to acute postoperative blood loss- Check iron studies
# Slightly elevated diastolic blood pressure
Possibly secondary to pain, treat pain adequately.
If consistently elevated we can add Norvasc 2.5 mg
#DVT prophylaxis-Lovenox
#Full code
D/W RN
D/we Colorectal
D/W Daughter at bed side
Part of this note was created using voice recognition system. Occasional wrong word or��sound alike� substitutions may have inadvertently occurred due to the inherent limitations of voice recognition software. If noted kindly bring it to my
attention for correction.
Anticipated Discharge: Within 24 hours
Subjective/Interval History
-
Date of Service: August 26, 2023
Objective Data
-
Labs:
Laboratory Results
08/26/23
05:18
WBC 3.2 L
Hgb 10.2 L
Hct 33.1 L
Plt Count 214
Sodium 136
Potassium 4.2
Chloride 102
Carbon Dioxide 27
BUN 13
Creatinine 0.7
Glucose 86
Calcium 9.0
Vital Signs:
Vital Signs
Temp Pulse Resp BP Pulse Ox
98.7 F 81 16 139/102 99
08/26/23 03:18 08/26/23 06:00 08/26/23 06:00 08/26/23 06:00 08/26/23 06:00
I&O
08/25/23 08/26/23 08/27/23
06:59 06:59 06:59
Intake Total 1640 / 1640 1979 / 1979
Output Total 1210 / 1210 1575 / 1575
Balance 430 / 430 405 / 405
[2023-08-26 09:41] LABS: Iron 53 ug/dl (49-181)
[2023-08-26 09:51] LABS: Percent Saturation 24 % (20-50); Total Iron Binding Capacity 215 ug/dl (261-462)
--- NOTE | 2023-08-26 09:57 | PTCARENOTE ---
Pt AAOx3 co of rectal pain. MD aware ,
--- NOTE | 2023-08-26 10:02 | CM ---
Patient who is s/p flex sigmoid with biopsy rectosigmoid mass, ex lap with loop colostomy, right hemicolectomy. Room air. Low residue diet. Reeiving IV Toradol lprn. [facility] nurse for ostomy/teaching. PT recommends HH.
Spoke with [facility] ([phone], fax [phone]); they do not use [facility]. Referral sent via [employer].
Plan follow up with [facility] for acceptance.
Plan home with for ostomy care and PT. .
[2023-08-26] MEDS: ROXICODONE 10 MG PO ×2 (11:12→22:30)
[2023-08-26 11:16] LABS: Vitamin B12 418 pg/ml (239-931)
--- NOTE | 2023-08-26 11:27 | WOUNDNOTE ---
[facility] RN note: Instructed patient pouch emptying and changing appliance with daughter Summer present. Patient able to open and close pouch. Stoma blister at 8o'clock was bleeding after measuring stoma which stopped bleeding with pressure; updated
colorectal PA Susan Flanagan via tiger text including stoma picture. Stoma remains edematous and pink. Peristomal skin intact. Stoma bridge intact. Appliance changed using 4 inch Johnny wafer # [id number], Tiesha seal and [place] pouch # [id number]. 2
3/4inch ostomy appliances also in room if/when stoma shrinks to 2 1/4in or smaller. 2nd layer of Tiesha seal applied from 5-9 o'clock where peristomal skin dips some. Midline abdominal dressing changed. Ostomy supplies given. Patient for possible
discharge tomorrow with VN.
[2023-08-26] MEDS: DILAUDID 0.5 MG IV ×3 (11:53→19:22)
--- NOTE | 2023-08-26 13:15 | PTCARENOTE ---
Pt has intense rectal pain 10/ . Oxycodone has not helped at all. Dr Rodriguez tt new orders. ointment applied to rectum pt states its painful to touch . DR Sanches saw pt will order Gabapentin for nerve pain. Pt very concerned abouit going
home with so much pain.
[2023-08-26] MEDS: OXYCONTIN (CONTROLLED RELEASE) 10 MG PO ×2 (13:44→19:23)
[2023-08-26] MEDS: NUPERCAINAL 1% OINTMENT 1 APPLIC TOPICAL ×2 (13:55→21:30)
[2023-08-26] MEDS: TYLENOL 1000 MG PO ×2 (14:09→21:07)
[2023-08-26] MEDS: LOVENOX 40 MG SC (17:35)
--- NOTE | 2023-08-26 18:13 | CON.ONC ---
Impression
Impression
Rectal cancer s/p flexible sigmoidoscopy with biopsy of rectosigmoid mass, ex lap with loop sigmoid colostomy, extended right hemicolectomy with ileocolic anastomosis
Bulky abd adenopathy
Iron deficiency anemia
Cancer-related pain
Cancer cachexia
Plan
Plan
Add neurontin for pain control
Will need outpt Onc f/u but lives in [facility]. Would prefer not to return to [facility] unless referred by us to Medical Oncology directly.
Systemic therapy will depend on MMR status, if MMR-deficient/MSI-high, could be treated with single-agent Keytruda, otherwise will need chemo +/- RT.
We will endeavor to help identify a Med Onc provider closer to where he lives.
Thank you for follow up, will follow along with you.
Patient History
History of Present Illness
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 He presented to the ER at [place] about a month ago with complaints of abdominal pain, diarrhea, and fevers.� CT scan of the abdomen and pelvis on 07/26/2023 revealed
proctocolitis with stool throughout the colon and widespread bulky abdominal lymphadenopathy.� This was described as 'could be due to colitis, however these findings are suspicious for neoplastic process.� Recommend PET/CT '.� The patient apparently
was also diagnosed via stool testing with Campylobacter enteritis and was treated with antibiotics.� He is ultimately discharged on Zithromax.� On discharge he was recommended to undergo repeat CT scan after resolution of his proctocolitis and a
screening colonoscopy for his mild anemia.� He also admits to chronic right-sided abdominal discomfort.� Denies nausea or vomiting.� Is unclear whether he is lost weight. He was not happy with care at [facility] and opted to see Dr. Guerrero who
referred him to ED. CT A/P in the ED showed a LARGE PARTIALLY OBSTRUCTING MUCOSAL-BASED MASS in the distal sigmoid colon and rectum most consistent with RECTOSIGMOID CARCINOMA, severe fecal distention of the SIGMOID COLON proximal to the
obstruction with evidence for MILD ACUTE STERCORAL COLITIS, EXTENSIVE METASTATIC RETROPERITONEAL LYMPHADENOPATHY, and severe mesorectal inflammation and mild mesorectal metastatic lymphadenopathy. He was taken to OR 08/22/23 for flex sig followed by
ex lap. Much of the right colon was noted to have serosal vents and severe thinning. Extended R hemicolectomy was performed along with biopsy of rectosigmoid mass and formation of loop sigmoid colostomy. Pt with c/o post-op pain, not controlled
on Roxanol PO.
Past-Medical/Surgical History
Past Medical History
Past Medical History: None
Past Surgical History: None
Social History
Tobacco: Non-Smoker
Alcohol: None
Employment: Not Employed. 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 Born in [facility], has lived in for 20+ years. Accompanied by daughter Summer.
Family History
Family History: Reviewed & Not Pertinent
Allergies / Home Medications
Patient Medication
Medication Instructions Recorded Confirmed Last Taken Type
No Meds [No Current Medications] 08/21/23 08/21/23 Unknown History
Active Medications
Generic Name Dose Route Start Last Admin
Trade Name Freq PRN Reason Stop Dose Admin
Acetaminophen 1,000 mg 08/26/23 14:00 08/26/23 14:09
Acetaminophen 500 Mg Tablet PO 09/23/23 13:59 1,000 mg
Q8H JENNY Administration
Benzocaine/Menthol 1 lozenge 08/23/23 10:51 08/23/23 23:32
Benzocaine/Menthol Lozenge PO 09/20/23 10:50 1 lozenge
Q4HPRN PRN Administration
throat irritation
Dibucaine 0 applic 08/26/23 08:54 08/26/23 13:55
Dibucaine 1% (Ointment) Tube TOPICAL 09/23/23 15:59 1 applic
TID PRN Administration
anal pain
Enoxaparin Sodium 40 mg 08/24/23 18:00 08/26/23 17:35
Enoxaparin Sodium 40 Mg/0.4 Ml Syringe SC 09/21/23 17:59 40 mg
QPM JENNY Administration
Gabapentin 300 mg 08/26/23 22:00
Gabapentin 300 Mg Capsule PO 09/23/23 21:59
HS JENNY
Hydromorphone HCl 0.5 mg 08/24/23 08:52 08/26/23 14:10
Hydromorphone 0.5 Mg/0.5 Ml Syringe IV 09/07/23 08:51 0.5 mg
Q2HPRN PRN Administration
moderate pain
Ketorolac Tromethamine 15 mg 08/22/23 19:00 08/26/23 13:09
Ketorolac 15 Mg/Ml Injection IV 08/27/23 18:59 15 mg
Q6H JENNY Administration
Ondansetron HCl 4 mg 08/22/23 18:03
Ondansetron 4 Mg/2 Ml Vial IV 09/19/23 18:02
Q6HPRN PRN
nausea/vomiting
Oxycodone HCl 5 mg 08/26/23 08:55
Oxycodone 5 Mg Regular Release Tablet PO 09/09/23 08:54
Q4HPRN PRN
moderate pain
Oxycodone HCl 10 mg 08/26/23 08:55 08/26/23 11:12
Oxycodone 10 Mg Regular Release Tablet PO 09/09/23 08:54 10 mg
Q4HPRN PRN Administration
severe pain
Oxycodone HCl 10 mg 08/26/23 20:00
Oxycontin 10 Mg Controlled Release Tablet PO 09/09/23 19:59
Q12 JNENY
Pantoprazole Sodium 40 mg 08/23/23 08:00 08/26/23 08:39
Pantoprazole Sodium 40 Mg/10 Ml Vial IV 09/20/23 07:59 40 mg
DAILY JENNY Administration
Sodium Chloride 0 flush 08/21/23 22:00
Sodium Chloride 0.9% (Flush) Syringe IV 09/18/23 21:59
PER PROTOCOL JENNY
Sodium Chloride 10 ml 08/23/23 08:00 08/26/23 08:39
Sodium Chloride 0.9% (Preservative Free) 10 Ml Vial IV 09/20/23 07:59 10 ml
DAILY JENNY Administration
Review of Systems
-
States weight loss of >100 lbs.
Physical Exam
-
Awake, alert, uncomfortable appearing
General: Well Developed and Well Nourished; Negative Comfortable
HEENT: Moist Mucous Membranes; Negative Jaundice
Cardiology: Normal Sinus Rhythm, S1 and S2
Pulmonary: Clear
GI: Soft
Musculoskeletal: No Clubbing, No Cyanosis and No Edema
Extremities: No C/C/E
Neurology: Non Focal
Skin: Warm and Dry
Hematologic / Lymphatic: No Lymphadenopathy
Psych: Calm and Intact Judgement/Insight
Labs
Lab Results
WBC 3.2 10^3/uL (4.8-10.8) L 08/26/23 05:18
RBC 4.57 10^6/uL (4.70-6.10) L 08/26/23 05:18
Hgb 10.2 g/dL (13.0-18.0) L 08/26/23 05:18
Hct 33.1 % (39.0-52.0) L 08/26/23 05:18
MCV 72.4 fL (80.0-94.0) L 08/26/23 05:18
MCH 22.3 pg (27.0-31.0) L 08/26/23 05:18
MCHC 30.8 g/dL (33.0-37.0) L 08/26/23 05:18
RDW 14.8 % (11.5-14.5) H 08/26/23 05:18
Plt Count 214 10^3/uL (130-400) 08/26/23 05:18
MPV 10.9 fL (7.4-10.4) H 08/26/23 05:18
Abs Immat Gran (auto) 0.0 10^3/uL (0-0.05) 08/23/23 05:25
Absolute Neuts (auto) 7.5 10^3/uL (1.4-6.5) H 08/23/23 05:25
Absolute Lymphs (auto) 0.6 10^3/uL (1.2-3.4) L 08/23/23 05:25
Absolute Monos (auto) 0.6 10^3/uL (0.1-0.6) 08/23/23 05:25
Absolute Eos (auto) 0.0 10^3/uL (0-0.7) 08/23/23 05:25
Absolute Basos (auto) 0.0 10^3/uL (0-0.2) 08/23/23 05:25
Immature Gran % 0.3 % (0-0.5) 08/23/23 05:25
Neutrophils % 86.5 % (42.2-75.2) H 08/23/23 05:25
Lymphocytes % 6.7 % (20.5-51.1) L 08/23/23 05:25
Monocytes % 6.5 % (1.7-9.3) 08/23/23 05:25
Eosinophils % 0.0 % (0-6) 08/23/23 05:25
Basophils % 0.0 % (0-2) 08/23/23 05:25
Creatinine 0.7 mg/dL (0.7-1.3) 08/26/23 05:18
Vital Signs
Vital Signs
Temp Pulse Resp BP Pulse Ox
98.0 F 76 11 153/104 82
08/26/23 15:28 08/26/23 15:04 08/26/23 15:04 08/26/23 15:04 08/26/23 15:04
[2023-08-26] MEDS: NEURONTIN 300 MG PO (21:07)
[2023-08-27] VITALS (11 sets, daily range): BP systolic 109–161; BP diastolic 77–117; BMI 32.6; BMI 31.6
[2023-08-27] MEDS: TORADOL IV (01:00)
[2023-08-27] MEDS: ROXICODONE 10 MG PO ×2 (02:36→11:40)
[2023-08-27] MEDS: TORADOL 15 MG IV (03:41)
[2023-08-27] MEDS: DILAUDID 0.5 MG IV (03:42)
--- NOTE | 2023-08-27 05:30 | PTCARENOTE ---
Addendum entered by Frances Alonso RN 08/27/23 06:29:
Pt arousable but drowsy this morning. Held PO Tylenol at this time. Pt appears in no apparent distress, respirations even and unlabored. Summer in family respite room.
Original Note:
Pain managed as follows...
193: At change of shift patient reports 8/10 pain to rectum & abdomen; Toradol, Dilaudid and OxyContin administered per MAR.
2099: Scheduled gabapentin and Tylenol administered. Prn Dibucaine cream applied; Pt reports relief.
0: Pt reports 7/10 pain. Prn oxycodone 10mg administered to stay on top of pain regimen; Pt able to fall asleep.
0230: Pt woke up and reported 6/10 pain in abdomen/rectum that is increasing. Prn oxycodone 10mg administered per MAR.
0340: Pt rang call buenrostro stating oxy pain med didn't help, reports 8/10 pain. IV Dilaudid provided and pt was able to fall asleep.
Summer at bedside. Up ad fallon to BR. Voiding w/o issues. Colostomy emptied by pt. Denies N/V. Abd dressing changed per order. NSR. SCDs on. Call buenrostro within reach.
[2023-08-27] MEDS: PROTONIX IV 40 MG IV (08:33)
[2023-08-27] MEDS: OXYCONTIN (CONTROLLED RELEASE) 10 MG PO ×2 (08:33→19:19)
[2023-08-27] MEDS: NSS (PRESERVATIVE FREE) 10 ML IV (08:33)
[2023-08-27] MEDS: TYLENOL PO (08:33)
[2023-08-27] MEDS: NUPERCAINAL 1% OINTMENT 1 APPLIC TOPICAL (08:34)
--- NOTE | 2023-08-27 09:02 | W.PN.HOSP.TC ---
Today's Communication/Plan
-
Pain control
Rest per colorectal
Assessment / Plan
Assessment / Plan
CT AP w IV contrast
1. � LARGE PARTIALLY OBSTRUCTING MUCOSAL-BASED MASS in the distal sigmoid colon and rectum most consistent with RECTOSIGMOID CARCINOMA.
2. � Severe fecal distention of the SIGMOID COLON proximal to the obstruction with evidence for MILD ACUTE STERCORAL COLITIS.
3. � EXTENSIVE METASTATIC RETROPERITONEAL LYMPHADENOPATHY.
4. � Severe mesorectal inflammation and mild mesorectal metastatic lymphadenopathy.
No prior admission to
ASSESSMENT & PLAN
On examination awake alert and oriented
Not in any distress
Abdomen laparotomy wound
Colostomy empty today
No pedal edema no calf tenderness
Bowel sounds are appreciated
# Large partially obstructing mucosal-based mass at rectosigmoid c/w carcinoma�
Severe fecal distention of the sigmoid colon proximal to the obstruction with evidence of stercoral colitis
Extensive metastatic retroperitoneal lymphadenopathy
Severe mesorectal inflammation and mild mesorectal metastatic lymphadenopathy.
Patient underwent flexible sigmoidoscopy, exploratory laparotomy, extended right colectomy for ischemia, loop sigmoid colostomy creation, primary umbilical hernia repair surgery by Dr. Guerrero on 08/22/2023. Diet advanced to full liquids being
advance to low residue diet today
Patient has anal pain-discussed with colorectal for local antispasmodic/analgesics
Continue OxyContin and Oxycodone , Ibuprofen,Gabapentin,Tylenol for pain-case management to check if OxyContin is covered
Awaiting biopsy results
Ostomy care/teaching
Hematology oncology evaluation appreciated
CEA 6.82
# Significant weight loss by history
# Anemia likely secondary to acute postoperative blood loss-
# Slightly elevated diastolic blood pressure
Possibly secondary to pain, blood pressure is better since pain is under control
# DVT prophylaxis-Lovenox
# Full code
D/W RN at bedside
D/w Colorectal
D/W Daughter at bed side
It was clearly discussed with patient and daughter that the treatment for his cancer should be continued after he is discharged.
Part of this note was created using voice recognition system. Occasional wrong word or��sound alike� substitutions may have inadvertently occurred due to the inherent limitations of voice recognition software. If noted kindly bring it to my
attention for correction.
Anticipated Discharge: Within 24 hours
Subjective/Interval History
-
Date of Service: August 27, 2023
Objective Data
-
Labs:
Laboratory Results
08/27/23
08:15
WBC Pending
Hgb Pending
Hct Pending
Plt Count Pending
Sodium Pending
Potassium Pending
Chloride Pending
Carbon Dioxide Pending
BUN Pending
Creatinine Pending
Glucose Pending
Calcium Pending
Vital Signs:
Vital Signs
Temp Pulse Resp BP Pulse Ox
98.4 F 83 11 112/77 93
08/27/23 07:24 08/27/23 06:00 08/27/23 06:00 08/27/23 06:00 08/27/23 06:00
I&O
08/26/23 08/27/23 08/28/23
06:59 06:59 06:59
Intake Total 1979 / 1979 480 / 480
Output Total 1575 / 1575 1450 / 1450 475 / 475
Balance 405 / 405 -970 / -970 -475 / -475
[2023-08-27] MEDS: NEURONTIN 100 MG PO ×2 (09:28→16:06)
--- NOTE | 2023-08-27 10:13 | CM ---
Addendum entered by Beckie Hamilton RN 08/27/23 16:44:
Message from nurse patient requesting some help with paperwork for the [employer] company to help get his bill covered since he has been hospitalized.
Spoke with daughter Summer, who was with the patient in his room; provided info found online for [place] resident @ [employer].
[employer]'s [employer] provides one-time assistance grants to [employer] customers that are applied directly to their utility bill.
Suggested to daughter she could check out this website for assistance with patient's utility bills.
Addendum entered by Beckie Hamilton RN 08/27/23 11:45:
Spoke with Trisha [facility]ff (ph [phone], fax [phone]); they are able to accept the referral. Provided update of probable d/c tomorrow.
Met with patient and spoke with daughter Summer;
they were told by MD that discharge will probably be tomorrow.
CM provided update [facility].
Informed patient/daughter that PT will provide a RW.
Offered to order w/c for MD appointments and longer distances, however patient & daughter prefer to wait and see when he is home if that is needed.
Summer feels she will be able to transport the patient home in her car. She says the car seat reclines for added comfort.
Summer has some nurses training and feels able to assist patient at home with colostomy care.
Message to Dr Rodriguez requesting script for RW. , PT will provide RW once script obtained.
Plan home with [facility] VN with RW.
Original Note:
Patient who is s/p flex sigmoid with biopsy rectosigmoid mass, ex lap with loop colostomy, right hemicolectomy. [facility] nurse for ostomy/teaching. PT recommends HH.
Eight VN referrals made, 7 agencies declined due to location, patient's insurance or no PT availability.
Spoke with Trisha Neff (ph [phone], fax [phone]); they may be able to accept for ostomy nurse & PT, and will confirm once MD order & ICD codes are provided.
CM Consult: check coverage Oxycontin.
Spoke with pharmacist at [facility] on [address]; Oxycontin 10mg has been backordered but is now available, oxycodone is also covered by his insurance for a 5 day supply only every 6 months. His doctor's office can request a prior auth for
further med. She requests e-script to be sent.
Information forwarded to Dr Rodriguez.
Plan follow up with [facility] for acceptance.
[2023-08-27 10:18] LABS: Hematocrit 29.8 % (39.0-52.0); Hemoglobin 9.7 g/dL (13.0-18.0); Mean Corp Hgb Conc. 32.6 g/dL (33.0-37.0); Mean Corpuscular Volume 70.8 fL (80.0-94.0); Mean Platelet Volume 11.4 fL (7.4-10.4); Platelet Count 241 10^3/uL (130-400); Red Blood Cell Count 4.21 10^6/uL (4.70-6.10); Red Cell Dist. Width 14.9 % (11.5-14.5); White Blood Cell Count 3.1 10^3/uL (4.8-10.8)
[2023-08-27 10:38] LABS: Blood Urea Nitrogen 11 mg/dl (9-20); Calcium 8.9 mg/dl (8.4-10.2); Carbon Dioxide 29 mmol/L (22-30); Chloride 103 mmol/L (98-107); Estimated Creatinine Clearance > 125 ml/min; Glucose 90 mg/dl (70-99); Potassium 4.3 mmol/L (3.5-5.1); Sodium 134 mmol/L (135-145); eGFR > 60.00
[2023-08-27] MEDS: MOTRIN 400 MG PO (10:58)
--- NOTE | 2023-08-27 12:04 | W.PN.CRS1 ---
Addendum entered and electronically signed by Ghanshyam Guerrero MD 08/27/23 12:35:
I saw and examined the patient.
The PA's note was reviewed and I agree with the note.
Comment:
Seen in am with PA.
Pain control a bit better.
Tolerating LRD.
Vitals reasonable. Hg stable at 9.7.
Path pending.
Abdomen looked good. Dressings changed and saravanan removed. Stoma viable with output.
Appreciate hospitalist help.
Likely discharge tomorrow.
Original Note:
Today's Communication / Plan
-
Pain control
Continue diet
Hematology/hospitalist
Case management
Anticipate discharge tomorrow
Assessment/Plan
-
POD#5 flexible sigmoidoscopy with biopsy of rectosigmoid mass, ex lap with loop sigmoid colostomy, extended right hemicolectomy with, ileocolic anastomosis, UHR
1. Continue low residue diet.
2. Hgb stable. Continue to monitor.
3. Continue pain control with IV Toradol, add Tylenol and continue Dilaudid IV PRN, add oxycodone po. Also on Neurontin.
4. No need for antibiotics.
5. Continue Lovenox/SCD's and ambulation for DVT prophylaxis.
6. Dibucaine ointment to rectal area PRN for pain.
7. Appreciate [facility] for ostomy teaching and supplies, will need VNA on discharge.
8. Follow-up path. Still pending.
9. Appreciate hospitalist.
10. Appreciate hematology. They are awaiting path and working on getting patient to oncologist as an outpatient.
11. Given amount of pain, recommended pain specialist as an outpatient.
12. Dispo: customer experience manager consult per patient's request. Likely DC tomorrow.
Subjective Data
Procedure
08/22/23 - Flexible sigmoidoscopy with biopsies, extended right colectomy, loop sigmoid colostomy and umbilical hernia repair
Subjective Data
Date of Service: August 27, 2023
Patient states well today. He is colostomy is functioning. His pain is little bit better. He is tolerating diet.
Objective Data
-
Vital Signs
Temp Pulse Resp BP Pulse Ox
98.6 F 88 14 144/110 100
08/27/23 10:48 08/27/23 10:00 08/27/23 10:00 08/27/23 10:00 08/27/23 10:11
Intake & Output
08/26/23 08/27/23 08/28/23
06:59 06:59 06:59
Intake Total 1979 / 1979 480 / 480
Output Total 1575 / 1575 1450 / 1450 475 / 475
Balance 405 / 405 -970 / -970 -475 / -475
Intake:
Oral fluids 1280 / 1280 480 / 480
IV fluids (Total) 700 / 700
Output:
Liquid stool amount 175 / 175 75 / 75
Colostomy 175 / 175 75 / 75
Urine, Voided 1400 / 1400 1450 / 1450 400 / 400
Other:
Number of approximated MODERATE 2 1
amounts of urine
Lab Results
08/27/23 09:57
08/27/23 09:57
Physical Exam
-
General: No Acute Distress and AOx3
Abdomen: Soft, Non Distended, Non Tender and Other (Colostomy warm and pink with function)
Skin: Warm and Dry
Incision: Clear, Dry, Intact
--- NOTE | 2023-08-27 12:29 | PTCARENOTE ---
Addendum entered by Noni Bey RN 08/27/23 14:10:
Pt remains asleep s/p PRN Roxicodone.
Original Note:
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 Pt awakened later, walked to bathroom and back, consumed 100% of breakfast, was given scheduled medications at 08:30 including 10 mg Oxycontin controlled release. Plan discussed with
care team at bedside along with pt and daughter, orders rec'd. Additional medications for pain administered per ANYA- Motrin at 10:58 for 6/10 abdominal pain, with very little relief...followed by Roxicodone 10 mg at 11:40 for 8/10 abdominal pain, pt
visibly uncomfortable in the bed....will reassess pain level at 12:40. Elevated bps conveyed to Dr. Rodriguez. Will continue to closely monitor.
--- NOTE | 2023-08-27 13:48 | W.PN.ONC ---
Today's Communication / Plan
-
Monitor CBC daily
Continue pain management
Gabapentin has been added with improvement of pain overnight per patient
Await pathology from biopsy
Diet as tolerated per Colorectal surgery
Supportive care, emotional support
WOCN following, VNA upon discharge
[place] administration has been notified to assist in finding the closest Oncology office for patient to follow up with. He is very appreciative of the care he has been receiving here at . We will follow. Await final pathology to determine
treatment options.
Impression
Impression
Rectal cancer s/p flexible sigmoidoscopy with biopsy of rectosigmoid mass, ex lap with loop sigmoid colostomy, extended right hemicolectomy with ileocolic anastomosis
Bulky abdominal adenopathy
Iron deficiency anemia
Cancer-related pain
Subjective/Objective
Subjective/Objective
patient is smiling this morning, talking on the phone. family at bedside. he states he slept through the night and his pain was controlled with help of gabapentin at .
Vital Signs:
Vital Signs
Temp Pulse Resp BP Pulse Ox
98.6 F 85 20 149/117 100
08/27/23 10:48 08/27/23 12:00 08/27/23 12:00 08/27/23 12:00 08/27/23 10:11
physical exam unchanged.
Lab Results:
Laboratory Data
WBC 3.1 10^3/uL (4.8-10.8) L 08/27/23 09:57
Hgb 9.7 g/dL (13.0-18.0) L 08/27/23 09:57
Plt Count 241 10^3/uL (130-400) 08/27/23 09:57
PT 15.6 Sec (11.4-14.6) H 08/22/23 06:13
INR 1.23 08/22/23 06:13
APTT 32.9 Sec (23.4-35.0) 08/22/23 06:13
eGFR > 60.00 08/27/23 09:57
Orders
Orders
Orders From Last 24 Hours
08/26/23 22:00
Gabapentin [Neurontin] 300 mg PO HS
[2023-08-27] MEDS: TYLENOL 1000 MG PO ×2 (14:57→22:33)
[2023-08-27] MEDS: LOVENOX 40 MG SC (17:17)
[2023-08-27] MEDS: NORVASC 2.5 MG PO (17:17)
--- NOTE | 2023-08-27 17:28 | PTCARENOTE ---
2.5 mg Norvasc ordered and administered at this time.
[2023-08-27] MEDS: NEURONTIN 300 MG PO (22:33)
--- NOTE | 2023-08-27 23:45 | PTCARENOTE ---
AAOx3, NSR. Colostomy intact, wounds as documented. Pt expressing anxiety that new ostomy is not working properly and pt is not digesting properly. Pt states he did not eat lunch or dinner because he fears they will not be digested properly. Pt
wants to discuss treatment options for additional imaging with doctors in the morning. This RN assessed ostomy site and output, emptied 25mls clear, brown liquid from bag. Pt ambulated to bathroom to void 450mls in urinal. Pain controlled per MAR.
[2023-08-28] VITALS (7 sets, daily range): BP systolic 131–154; BP diastolic 96–111; BMI 30.9
[2023-08-28] MEDS: MOTRIN 400 MG PO ×2 (03:32→08:51)
--- NOTE | 2023-08-28 03:56 | PTCARENOTE ---
Pt c/o level 9 pain in abdomen and rectum. 5mg roxicodone given per MAR, see downtime documentation. 400mg motrin given per MAR. Pt denies rectal pain relief cream at this time. Pt instructed to alert this RN if pain continues to persist despite
pharmacologic measures. Call buenrostro placed within reach.
--- NOTE | 2023-08-28 03:58 | DOWNTIME ---
There was a [employer] Client Specialty Trimmer Downtime on 08/28/2023 from 0100 to 08/28/2023 at 0322. Downtime documentation of patient's care, including medication administrations, has been reconciled in the electronic record per guidelines. Refer to the
patient's paper chart under the miscellaneous tab to see printed paper medication records and downtime forms.
[2023-08-28] MEDS: TYLENOL 1000 MG PO ×2 (05:10→12:30)
[2023-08-28] MEDS: OXYCONTIN (CONTROLLED RELEASE) 10 MG PO (08:51)
[2023-08-28] MEDS: NEURONTIN 100 MG PO (08:52)
[2023-08-28] MEDS: NORVASC 5 MG PO (08:52)
[2023-08-28] MEDS: PROTONIX 40 MG PO (08:52)
--- NOTE | 2023-08-28 10:15 | W.PN.CRS1 ---
Today's Communication / Plan
-
okay for discharge today
Assessment/Plan
-
POD#6 flexible sigmoidoscopy with biopsy of rectosigmoid mass, ex lap with loop sigmoid colostomy, extended right hemicolectomy with, ileocolic anastomosis, UHR
1. Continue low residue diet.
2. Hgb stable. Continue to monitor.
3. Continue pain control with IV Toradol, add Tylenol and continue Dilaudid IV PRN, on oxycodone po. Also on Neurontin.
4. No need for antibiotics.
5. Continue Lovenox/SCD's and ambulation for DVT prophylaxis.
6. Dibucaine ointment to rectal area PRN for pain.
7. Appreciate [facility] for ostomy teaching and supplies, will need VNA on discharge.
8. Follow-up path. Still pending.
9. Appreciate hospitalist.
10. Appreciate hematology. They are awaiting path and working on getting patient to oncologist as an outpatient.
11. Given amount of pain, recommended pain specialist as an outpatient.
12. Dispo: home with VN. Okay for discharge. Discussed discharge plans with patient. Follow up with Dr. Guerrero in the office in 2 weeks. VN for colostomy care. Continue low residue diet.
Subjective Data
Procedure
08/22/23 - Flexible sigmoidoscopy with biopsies, extended right colectomy, loop sigmoid colostomy and umbilical hernia repair
Subjective Data
Date of Service: August 28, 2023
Patient states he still has rectal pain. He is tolerating a diet. He denies nausea or vomiting. His colostomy has output.
Objective Data
-
Vital Signs
Temp Pulse Resp BP Pulse Ox
98.3 F 86 16 131/108 97
08/28/23 07:38 08/28/23 08:52 08/28/23 04:00 08/28/23 08:52 08/27/23 23:41
Intake & Output
08/27/23 08/28/23 08/29/23
06:59 06:59 06:59
Intake Total 480 / 480 960 / 960
Output Total 1450 / 1450 4475 / 4475 500 / 500
Balance -970 / -970 -3515 / -3515 -500 / -500
Intake:
Oral fluids 480 / 480 960 / 960
Output:
Liquid stool amount 125 / 125
Colostomy 125 / 125
Urine, Voided 1450 / 1450 4350 / 4350 500 / 500
Other:
Number of approximated MODERATE 1
amounts of urine
Lab Results
08/27/23 09:57
08/27/23 09:57
Physical Exam
-
General: No Acute Distress and AOx3
Abdomen: Soft, Non Distended, Non Tender and Other (colostomy warm and pink)
--- NOTE | 2023-08-28 10:33 | W.DS.TRANS ---
DC Summary - [employer]
-
Discharge Instructions:
Discharge Diagnosis/Procedures flexible sigmoidoscopy with biopsy of
rectosigmoid mass, ex lap with loop sigmoid
colostomy, extended right hemicolectomy with,
ileocolic anastomosis
Diet Low Residue
Activity No strenuous activity
Additional Activity No lifting over 10lbs (gallon of milk)
Driving Restrictions No driving for 1 week
Bathing Restrictions OK to Shower
Wound Care Change dressing daily with 4x4 gauze and tape.
Okay to leave open to air when showering. Let
water run off the incision.
Instructions: Low Fiber Diet
Stand-Alone Forms:
Changes to Home Medications: Yes
Discharge Medications:
DC Medications w/original date entered in [employer]
amlodipine 5 mg tablet 5 mg PO DAILY 30 days #30 tabs 08/28/23
dibucaine 1 % topical ointment 1 applic topical TID PRN anal pain 30 days #30 grams 08/28/23
gabapentin 100 mg capsule 100 mg PO BID 30 days #60 caps 08/28/23
gabapentin 300 mg capsule 300 mg PO HS 30 days #30 caps 08/28/23
oxycodone 10 mg tablet 10 mg PO Q4HPRN PRN severe pain 30 days #20 tabs 08/28/23
oxycodone 10 mg tablet,crush resistant,extended release 12 hr (OxyContin) 10 mg PO Q12 pain 15 days #30 tabs 08/28/23
Home Medication Changes
amlodipine 5 mg tablet 5 mg PO DAILY 30 days #30 tabs 08/28/23
dibucaine 1 % topical ointment 1 applic topical TID PRN anal pain 30 days #30 grams 08/28/23
gabapentin 100 mg capsule 100 mg PO BID 30 days #60 caps 08/28/23
gabapentin 300 mg capsule 300 mg PO HS 30 days #30 caps 08/28/23
oxycodone 10 mg tablet 10 mg PO Q4HPRN PRN severe pain 30 days #20 tabs 08/28/23
oxycodone 10 mg tablet,crush resistant,extended release 12 hr (OxyContin) 10 mg PO Q12 pain 15 days #30 tabs 08/28/23
Pending Results: Yes
Additional Pending Results:
OR pathology
--- NOTE | 2023-08-28 10:53 | CM ---
Patient who is s/p flex sigmoid with biopsy rectosigmoid mass, ex lap with loop colostomy, right hemicolectomy. [facility] nurse for ostomy/teaching. PT recommends HH.
Met with patient and daughter Summer; the patient says he feels ready to go home, and both agree to d/c home today. They are aware that [facility] is setup and phone contact # [phone] was provided in writing. Daughter will provide transport
home. Daughter says she has been given ostomy supplies by [facility] nurse.
Spoke with Julia PT; script in chart for RW and she will issue RW to patient.
Plan home today with [facility] with RW.
--- NOTE | 2023-08-28 11:48 | W.PN.HOSP.TC ---
Today's Communication/Plan
-
DISCHARGE PLANS NOTED
Assessment / Plan
Assessment / Plan
CT AP w IV contrast
1. � LARGE PARTIALLY OBSTRUCTING MUCOSAL-BASED MASS in the distal sigmoid colon and rectum most consistent with RECTOSIGMOID CARCINOMA.
2. � Severe fecal distention of the SIGMOID COLON proximal to the obstruction with evidence for MILD ACUTE STERCORAL COLITIS.
3. � EXTENSIVE METASTATIC RETROPERITONEAL LYMPHADENOPATHY.
4. � Severe mesorectal inflammation and mild mesorectal metastatic lymphadenopathy.
No prior admission to
ASSESSMENT & PLAN
On examination awake alert and oriented
Not in any distress
Abdomen laparotomy wound
Colostomy was being changed
No pedal edema no calf tenderness
Bowel sounds are appreciated
# Large partially obstructing mucosal-based mass at rectosigmoid c/w carcinoma�
Severe fecal distention of the sigmoid colon proximal to the obstruction with evidence of stercoral colitis
Extensive metastatic retroperitoneal lymphadenopathy
Severe mesorectal inflammation and mild mesorectal metastatic lymphadenopathy.
Patient underwent flexible sigmoidoscopy, exploratory laparotomy, extended right colectomy for ischemia, loop sigmoid colostomy creation, primary umbilical hernia repair surgery by Dr. Guerrero on 08/22/2023. Diet advanced to full liquids being
advance to low residue diet today
Patient has anal pain-discussed with colorectal for local antispasmodic/analgesics
Continue OxyContin and Oxycodone , Ibuprofen,Gabapentin,Tylenol for pain-Managed
Information for pain management included in discharge
Awaiting biopsy results
Ostomy care/teaching
Hematology oncology evaluation appreciated
CEA 6.82
# Significant weight loss by history
# Anemia likely secondary to acute postoperative blood loss-
# HTN- Norvasc started
# DVT prophylaxis-Lovenox
# Full code
D/W RN at bedside
D/W Daughter at bed side
It was clearly discussed with patient and daughter that the treatment for his cancer should be continued after he is discharged.
Part of this note was created using voice recognition system. Occasional wrong word or��sound alike� substitutions may have inadvertently occurred due to the inherent limitations of voice recognition software. If noted kindly bring it to my
attention for correction.
Anticipated Discharge: Today
Subjective/Interval History
-
Date of Service: August 28, 2023
Objective Data
-
Vital Signs:
Vital Signs
Temp Pulse Resp BP Pulse Ox
98.3 F 90 19 151/111 97
08/28/23 07:38 08/28/23 10:00 08/28/23 10:00 08/28/23 10:00 08/27/23 23:41
I&O
08/27/23 08/28/23 08/29/23
06:59 06:59 06:59
Intake Total 480 / 480 960 / 960
Output Total 1450 / 1450 4475 / 4475 500 / 500
Balance -970 / -970 -3515 / -3515 -500 / -500
[2023-08-28] MEDS: ROXICODONE 10 MG PO (12:29)
--- NOTE | 2023-08-28 14:10 | PTCARENOTE ---
Pt reported colostomy was leaking. Examined appliance and found leak at skin seal. New appliance applied and Pt's daughter taught how to remove and apply new bag. Pain medication administered and discharge paperwork reviewed with patient and
daughter
== END 2023-08-28 15:35 | disposition home health service (06) | DRG 330 ==
LOC: IMU 12:50
PROVIDERS: Hospitalist; Nurse Practitioner Gerontology; Registered Nurse; Surgery; ADMITTING PHYSICIAN Internal Medicine; ATTENDING PHYSICIAN Surgery; CONSULT PHYSICIAN Internal Medicine Hematology & Oncology; EMERGENCY PHYSICIAN Emergency Medicine
PROC: 0DTF0ZZ Resection of Right Large Intestine, Open Approach (ICD-10-PCS; 2023-08-22)
PROC: 0D1N0Z4 Bypass Sigmoid Colon to Cutaneous, Open Approach (ICD-10-PCS; 2023-08-22)
PROC: 0DBN8ZX Excision of Sigmoid Colon, Via Natural or Artificial Opening Endoscopic, Diagnostic (ICD-10-PCS; 2023-08-22)
DX: C20 Malignant neoplasm of rectum (principal); D62 Acute posthemorrhagic anemia; K56.609 Unspecified intestinal obstruction, unspecified as to partial versus complete obstruction; R59.0 Localized enlarged lymph nodes; I10 Essential (primary) hypertension
CPT/HCPCS: 88305; 88309; 74177; 80048; 80053; 82378; 82607; 82728; 83540; 83550; 83735; 85014; 85018; 85025; 85027; 85610; 85730; 86850; 86900; 86901; 88341; 88342; 96361; 96365; 96366; 96375; 97116; 97162; 97530; 99285; J1335; Q9967

== ENCOUNTER 2023-09-02 03:18 | Inpatient (IN) | payer OTHER, SELFPAY ==
[2023-09-01 21:19] VITALS: BP 123/87
[2023-09-01 22:45] LABS: % Basophils 0.5 % (0-2); % Immature Granulocytes 0.5 % (0-0.5); % Lymphocytes 20.6 % (20.5-51.1); % Monocytes 12.1 % (1.7-9.3); % Neutrophils 65.3 % (42.2-75.2); Absolute Lymphocytes 0.8 10^3/uL (1.2-3.4); Absolute Monocytes 0.5 10^3/uL (0.1-0.6); Absolute Neutrophils 2.5 10^3/uL (1.4-6.5); Hemoglobin 10.5 g/dL (13.0-18.0); Mean Corp Hgb Conc. 31.8 g/dL (33.0-37.0); Mean Corpuscular Hgb 22.7 pg (27.0-31.0); Mean Corpuscular Volume 71.3 fL (80.0-94.0); Mean Platelet Volume 10.2 fL (7.4-10.4); Nucleated Red Blood Cells % 0 % (-); Platelet Count 325 10^3/uL (130-400); Red Blood Cell Count 4.63 10^6/uL (4.70-6.10); Red Cell Dist. Width 15.1 % (11.5-14.5); White Blood Cell Count 3.9 10^3/uL (4.8-10.8)
[2023-09-01 23:05] LABS: ALT (SGPT) 75 U/L (0-50); AST (SGOT) 62 U/L (17-59); Albumin 4.1 g/dl (3.5-5.0); Alkaline Phosphatase 69 U/L (38-126); Blood Urea Nitrogen 8 mg/dl (9-20); Calcium 9.6 mg/dl (8.4-10.2); Carbon Dioxide 24 mmol/L (22-30); Chloride 104 mmol/L (98-107); Glucose 84 mg/dl (70-99); Potassium 4.5 mmol/L (3.5-5.1); Sodium 135 mmol/L (135-145); Total Bilirubin 0.8 mg/dl (0.2-1.3); Total Protein 6.9 g/dl (6.3-8.2); eGFR > 60.00
--- NOTE | 2023-09-01 23:42 | ED.GENMED ---
History of Present Illness
General
Chief Complaint: Post Operative Problem(s)
Source: patient, records and previous hospital records
Exam Limitations: none
Time Seen by Provider: 09/01/23 23:16
Nursing documentation reviewed up to this point in time: agreed with
Travel History
Have you had any contact with someone who has COVID-19?: No
Do you have any symptoms of coronavirus? Fever > 100 degrees, chills, cough, shortness of breath, sore throat, loss of taste or smell, muscle aches, or headache?: No
History of Present Illness
History of Present Illness:
47-year-old male presents with abdominal pain pain in his rectum decreased p.o. intake
He had diarrhea a few months ago apparently seen at outside hospital told he had an infection treated with antibiotics discharged home, continued to have pain only referred to local colorectal surgeon underwent surgery recently discharged a few days
ago since discharge she has had some pain in his incision use abdominal pain pain in his rectum has had liquid stools in his ostomy, no documented fevers but states he did feel chilled,
Has yet to see a medical oncologist as an outpatient was [place] where he lives, did see medical oncology in [place]
Phy Exam
Physical Exam
Physical Exam:
Physical Exam
General: Nontoxic male
Neck: Lips are slightly dry
Heart: Tachycardia
Lungs: no acute respiratory distress. clear bilaterally
Abdomen: Soft mild diffuse tenderness minimal opening of the midline wound ostomy in the left abdomen clear stool pink
Neuro: alert and oriented. no focal neurological deficits
Skin: no rash
Psychiatric: well kept. interactive and cooperative
Extremities: no edema.
Course
Orders/Labs/Results
Orders:
Orders
09/01/23 22:30
Complete Blood Count/With Diff Urgent
Comprehensive Metabolic Panel Urgent
09/01/23 23:31
0.9% Sodium Chloride 1000 ml [Nss] 1,000 ml IV BOLUS
HYDROmorphone [Dilaudid] 1 mg IV NOW STA
Ondansetron Injectable [Zofran] 4 mg IV NOW STA
09/02/23 00:00
CT Abd/pelvis W Iv Cont Urgent
Reason For Exam: post o[p pain
09/02/23 00:17
HYDROmorphone [Dilaudid] 1 mg IV NOW STA
Abnormal Lab Results
09/01/23
22:30
WBC 3.9 L 10^3/uL
(4.8-10.8)
RBC 4.63 L 10^6/uL
(4.70-6.10)
Hgb 10.5 L g/dL
(13.0-18.0)
Hct 33.0 L %
(39.0-52.0)
MCV 71.3 L fL
(80.0-94.0)
MCH 22.7 L pg
(27.0-31.0)
MCHC 31.8 L g/dL
(33.0-37.0)
RDW 15.1 H %
(11.5-14.5)
Absolute Lymphs (auto) 0.8 L 10^3/uL
(1.2-3.4)
Monocytes % 12.1 H %
(1.7-9.3)
BUN 8 L mg/dl
(9-20)
AST 62 H U/L
(17-59)
ALT 75 H U/L
(0-50)
09/01/23 22:30
09/01/23 22:30
Vital Signs
Initial and Last Documented VS:
Initial Vital Signs
Temp Pulse Resp BP Pulse Ox
98.1 F 117 22 123/87 98
09/01/23 21:19 09/01/23 21:19 09/01/23 21:19 09/01/23 21:19 09/01/23 21:19
Last Documented Vital Signs
Temp Pulse Resp BP Pulse Ox
98.1 F 94 20 134/87 99
09/01/23 21:19 09/02/23 00:30 09/02/23 00:30 09/02/23 00:30 09/02/23 00:30
MDM/Problems Addressed
Differential Diagnosis Includes:
post op pain, ileus, abscess,
MDM/Problems Addressed:
pain
Chronic conditions affecting care:
colon Ca
Chronic conditions affecting care: Previous abdomnial surgery and Cancer
Acute Exacerbation and/or Progression of Chronic Illness: Previous abdomnial surgery and Cancer
*Radiology
Radiology exam reviewed: radiology read reviewed
*Pulse Oximetry
Patient hypoxic: no
*Grocery Clerk Interpretation
Rate: Grocery Clerk- N/A
*Critical Care Note
Total Time (30-74mins, 75-104mins- exclusive of procedures): Not Applicable
Data Reviewed
Review of Other/Old Records Reveals: Labs, Records and Radiology Studies
Source: records
Update Note
Update Note:
Patient with metastatic colorectal cancer s/p resection presents with pain was tachycardic nontoxic mild diffuse pain prior colorectal nodes noted pain was expected at time of discharge until he starts chemo
Some social stressors are coming up from hospital for the last versus care will try to get him comfortable check CT scan, disposition pending?
1:50 AM CAT scan vision report postop changes
Lymphadenopathy new encasement the ureters bilateral obstruction left greater than right mild hydroureteronephrosis which is new
Radiology is recommending urology consultation
Creatinine noted, message sent to hospitalist colorectal and urology
ED Attending Note
-
Portions of this chart may have been created with voice recognition software.� Occasional wrong word or��sound alike� substitutions may have occurred due to the inherent limitations of voice recognition software.
Discharge Plan
Departure
Patient Disposition: Admit
Date of Disposition: 09/02/23
Time of Disposition: 01:53
Admit to: Med/Surg
Presentation/result/management discussed w/ accepting MD/DO: Hospitalist
Patient with high blood pressure during this ER visit?: No
Condition: Fair
Discharge Problem:
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
Prescriptions:
No Action
amlodipine 5 mg Tablet
5 mg PO DAILY 30 Days Qty: 30 0RF
dibucaine 1 % Ointment
1 applic topical TID PRN (Reason: anal pain) 30 Days Qty: 30 0RF
gabapentin 300 mg Capsule
300 mg PO HS 30 Days Qty: 30 0RF
gabapentin 100 mg Capsule
100 mg PO BID 30 Days Qty: 60 0RF
oxycodone 10 mg Tablet
10 mg PO Q4HPRN PRN (Reason: severe pain) 30 Days Qty: 20 0RF
oxycodone [OxyContin] 10 mg Tablet,Oral Only,Ext.Rel.12 Hr
10 mg PO Q12 15 Days Qty: 30 0RF
Referrals:
NONE,* [Family Provider] -
Interventions
Interventions:
*Risk Screen - Suicide Last Done: 09/01/23 21:19
*General Assessment Last Done: 09/01/23 21:19
*Neglect/Abuse Screening Last Done: 09/01/23 21:19
Discharge Date and Time
Print Language: ECUADOREAN
[2023-09-01] MEDS: NSS 1000 IV (23:47)
[2023-09-01] MEDS: DILAUDID 1 MG IV (23:49)
[2023-09-01 23:50] VITALS: BP 138/102
[2023-09-01] MEDS: ZOFRAN 4 MG IV (23:52)
[2023-09-01 23:56] VITALS: BMI 31.3
[2023-09-02] MEDS: DILAUDID 1 MG IV (00:24)
[2023-09-02 00:30] VITALS: BP 134/87
[2023-09-02 02:00] VITALS: BP 128/90
[2023-09-02 02:58] VITALS: BP 122/99
--- NOTE | 2023-09-02 03:02 | HPS.HSE ---
Family Physician
-
Family Physician: * NONE
Chief Complaint
-
abdominal pain and chr rectal pain
History of Present Illness
47M DC'd on 08/27 s/p extended right colectomy and Loop sigmoid colostomy creation as of 08/22/23 for large BWO due to rectal mass pw abdominal pain pain in his rectum decreased p.o. intake.
POS liquid stools in his ostomy,
Medical History
Past Medical History
Past Medical History: Reports HTN and Other
Additional Past Medical History:
Rectal cancer s/p flexible sigmoidoscopy with biopsy of rectosigmoid mass, ex lap with loop sigmoid colostomy, extended right hemicolectomy with ileocolic anastomosis
Bulky abdominal adenopathy
Iron deficiency anemia
Cancer-related pain
Past Surgical History: Reports Other (s/p extended right colectomy and Loop sigmoid colostomy creation as of 08/22/23 for llarge BWO due torectal mass)
Social History
Tobacco: Non-smoker
Alcohol: None
Drug: None
Personal:
Family History
Family History: Not pertinent
Allergies / Home Medications
Allergies reflects when Allergies were last updated in [employer].
Home Medications with original date entered in [employer]
Allergy/Medication List:
Allergies
Allergy/AdvReac Type Severity Reaction Status Date / Time
No Known Allergies Allergy Verified 09/01/23 21:19
Home Medications
amlodipine 5 mg tablet 5 mg PO DAILY 30 days #30 tabs 08/28/23
dibucaine 1 % topical ointment 1 applic topical TID PRN anal pain 30 days #30 grams 08/28/23
gabapentin 100 mg capsule 100 mg PO BID 30 days #60 caps 08/28/23
gabapentin 300 mg capsule 300 mg PO HS 30 days #30 caps 08/28/23
oxycodone 10 mg tablet 10 mg PO Q4HPRN PRN severe pain 30 days #20 tabs 08/28/23
oxycodone 10 mg tablet,crush resistant,extended release 12 hr (OxyContin) 10 mg PO Q12 pain 15 days #30 tabs 08/28/23
Review of Systems
-
Constitutional: Reports No Symptoms
EENT: Reports No Symptoms
Respiratory: Reports No Symptoms
Cardiac: Reports No Symptoms
Abdomen/GI: Reports See HPI and Abdominal Pain
: Reports No Symptoms
Musculoskeletal: Reports No Symptoms
Skin: Reports No Symptoms
Neurological: Reports No Symptoms
Endocrine: Reports No Symptoms
Hematologic/Lymphatic: Reports No Symptoms
Psych: Reports No Symptoms
Physical Exam
Vital Signs
Vital Signs
Temp Pulse Resp BP Pulse Ox
98.1 F 95 17 122/99 96
09/01/23 21:19 09/02/23 02:58 09/02/23 02:58 09/02/23 02:58 09/02/23 02:58
Physical Exam
General: Appears in Distress and Pain (bdomen )
HEENT: NormoCephalic, Anicteric and Moist mucous membranes
Respiratory: Clear; No Wheezes, Rales or Rhonchi
Cardiac: S1/S2 and Regular Rhythm
GI: Soft, Tender and Other (mild diffuse tenderness minimal opening of the midline wound ostomy in the left abdomen, clear stool , pink)
Genito-urinary: Deferred by me
Musculoskeletal: No Edema
Skin: Warm and Dry
Neuro: AO x 3
Psych: Calm
Laboratory Results
-
09/01/23 22:30
09/01/23 22:30
Laboratory Results
Total Bilirubin 0.8 mg/dl (0.2-1.3) 09/01/23 22:30
AST 62 U/L (17-59) H 09/01/23 22:30
ALT 75 U/L (0-50) H 09/01/23 22:30
Alkaline Phosphatase 69 U/L (38-126) 09/01/23 22:30
Data Reviewed
-
CT Scan: Report Reviewed by me
Lab Data: Labs Reviewed by me
Old Records: Reviewed
Impression/Plan
-
Reviewed VS: unremarkable
Data
WCC 3.9 - was 3.1 on 08/27/23
Hgb 10.5
nl Cr nl eGFR
AST [address] AP report reviewed
- mild b/l ureteral obstruction Lt > Rt b/l hydroureteronephrosis
- interval Rt hemicolectomy , LLQ colostomy
- mucous fistula
- Obstructing rectal mass
- extensive RP LAD
Last hospitalist admission: 08/20 - 08/28/23
ASSESSMENT & PLAN
New b/l ureteral obstruction Lt > Rt b/l hydroureteronephrosis appears to be extrinsic compression of ureters from the soft tissue masses due to known Bulky abdominal adenopathy
Preserve renal function
- Urology consult PCN vs sent
POD11 extended right colectomy and Loop sigmoid colostomy creation as of 08/22/23 for llarge BWO due to rectal mass
Bulky abdominal adenopathy
Extensive metastatic retroperitoneal lymphadenopathy
Recto Anal pain - Cancer related pain
Significant weight loss by history
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
- Ostomy care/teaching
- CRS consult
Anemia - multifactorial ( recent surgery, cancer)
Essential HTN
- on Norvasc
DVT Px: LMWH
Code: full
IP/Obs
[2023-09-02] MEDS: NSS 1000 IV ×2 (04:02→20:03)
[2023-09-02 04:59] LABS: Hematocrit 29.4 % (39.0-52.0); Hemoglobin 9.7 g/dL (13.0-18.0); Mean Corpuscular Hgb 22.8 pg (27.0-31.0); Mean Corpuscular Volume 69.2 fL (80.0-94.0); Platelet Count 321 10^3/uL (130-400); Red Blood Cell Count 4.25 10^6/uL (4.70-6.10); Red Cell Dist. Width 15.1 % (11.5-14.5); White Blood Cell Count 3.8 10^3/uL (4.8-10.8)
[2023-09-02 05:12] LABS: Blood Urea Nitrogen 8 mg/dl (9-20); Calcium 9.3 mg/dl (8.4-10.2); Carbon Dioxide 22 mmol/L (22-30); Chloride 103 mmol/L (98-107); Estimated Creatinine Clearance > 125 ml/min; Glucose 83 mg/dl (70-99); Potassium 4.2 mmol/L (3.5-5.1); Sodium 138 mmol/L (135-145); eGFR > 60.00
[2023-09-02] MEDS: OXYCONTIN (CONTROLLED RELEASE) 10 MG PO (07:04)
[2023-09-02] MEDS: DILAUDID 0.5 MG IV ×4 (08:11→20:19)
[2023-09-02] MEDS: NORVASC 5 MG PO (08:11)
[2023-09-02 08:14] VITALS: BP 128/78
--- NOTE | 2023-09-02 12:48 | CON.CRS ---
Consultation
-
Date/Time Consultation Requested: 09/02/2023, 03:10
Date/Time Consultation Performed: 09/02/2023, 09:15
Requesting Provider: Garrison Nguyễn MD
Performing Provider: Alex Madison MD
Reason for Consultation: rectal cancer
Medical History
-
Chief Complaint: Rectal pain
History of Present Illness:
47-year-old male presents to emergency department earlier this morning due to rectal pain. He was recently discharged from [facility] after undergoing a right colectomy and loop sigmoid colostomy creation due to large bowel obstruction due
to rectal cancer. He states he has not been eating much due to pain. He denies vomiting. His stoma is warm and pink and has been having bowel movements and flatus. CT of the abdomen and pelvis shows mild bilateral hydronephrosis and mild
proximal hydroureter, new compared to prior CT. Findings are likely related to ureteral narrowing/obstruction by large confluent retroperitoneal lymphadenopathy. Extensive inguinal, pelvic, and retroperitoneal lymphadenopathy, likely malignant.
Status post left-sided colostomy with mucous fistula. Continued severe wall thickening of the rectum and distal sigmoid colon, likely related to the patient's known malignancy. No evidence of intestinal obstruction.
Given his recent history, we have been consulted for further surgical opinion.
Past Medical History
Past Medical History: HTN and Other (Iron deficiency anemia)
Past Surgical History: Bowel Resection (08/22/2023 - Rectal cancer s/p flexible sigmoidoscopy with biopsy of rectosigmoid mass, ex lap with loop sigmoid colostomy, extended right hemicolectomy with ileocolic anastomosis)
Social History
Tobacco: Non-Smoker
Alcohol: None
Drug: None
Family History
Family History: Reviewed & Not Pertinent
Allergies / Home Medications
Allergy/AdvReac Type Severity Reaction Status Date / Time
No Known Allergies Allergy Verified 09/01/23 21:19
�Medication �Instructions �Recorded �Confirmed �Type
dibucaine 1 % topical ointment 1 applic topical TID PRN anal pain 08/28/23 09/02/23 Rx
30 days #30 grams
gabapentin 300 mg capsule 300 mg PO HS 30 days #30 caps 08/28/23 09/02/23 Rx
acetaminophen 500 mg tablet 1,000 mg PO BIDPRN PRN mild pain 09/02/23 09/02/23 History
(Tylenol Extra Strength)
amlodipine 5 mg tablet 5 mg PO .SEE BELOW 09/02/23 09/02/23 History
gabapentin 100 mg capsule 100 mg PO DAILY 09/02/23 09/02/23 History
oxycodone 10 mg tablet 10 mg PO Q6H PRN severe pain 09/02/23 09/02/23 History
Review of Systems
-
History Source: Patient
All other systems: Negative unless noted
Abdomen/GI: Anorexia and Other (Rectal pain)
A 10 point review of systems was completed, and was negative except as per HPI.
Physical Exam
Vital Signs
Temp 98.1 F 09/01/23 21:19
Pulse 95 09/02/23 02:58
Resp Rate 17 09/02/23 02:58
Blood pressure 128/78 09/02/23 08:14
SaO2 96 09/02/23 02:58
09/01/23 09/02/23 09/03/23
06:59 06:59 06:59
Actual Weight 93.44 kg
Body Mass Index (BMI) 31.3
Lab Results / Allergies
09/02/23 04:49
09/02/23 04:49
WBC 3.8 10^3/uL (4.8-10.8) L 09/02/23 04:49
Hgb 9.7 g/dL (13.0-18.0) L 09/02/23 04:49
Hct 29.4 % (39.0-52.0) L 09/02/23 04:49
Plt Count 321 10^3/uL (130-400) 09/02/23 04:49
Abs Immat Gran (auto) 0.0 10^3/uL (0-0.05) 09/01/23 22:30
Neutrophils % 65.3 % (42.2-75.2) 09/01/23 22:30
Allergy/AdvReac Type Severity Reaction Status Date / Time
No Known Allergies Allergy Verified 09/01/23 21:19
Physical Exam
General: Well Developed, Well Nourished and No Apparent Distress
GI: Soft, Non Tender, Non Distended and Other (Colostomy warm and pink with function)
Skin: Warm and Dry
Neuro: AO x 3
Psych: Calm
Assessment / Plan
-
Assessment: 47-year-old male with recent extended right colectomy and Loop sigmoid colostomy creation due to a large bowel obstruction from rectal cancer, presents to the ER complaining of pain in his pelvis and rectum and also found to have mild
bilateral hydronephrosis and proximal hydroureter
Plan: Urology has been consulted given the hydroureter. There is no indication for surgery at this time. He will need radiation as an outpatient and we encouraged him to make an appointment as [place] is too far for him. Pain control. He has
been ordered a regular diet.
[2023-09-02] MEDS: ROXICODONE 10 MG PO ×2 (13:04→23:18)
--- NOTE | 2023-09-02 14:41 | W.PN.UPDATE ---
Update Note
Progress Note Update
This note serves as supplemental to history and physical already noted today
� Follow-up urology recommendations for nephrostomy tube versus stent
� Colorectal consulted for persistent rectal pain�nothing to do this time, resume diet
--- NOTE | 2023-09-02 17:00 | W.PN.UPDATE ---
Update Note
Progress Note Update
47M recently s/p extended right colectomy, loop sigmoid colostomy creation due to large bowel obstruction from rectal cancer.
Presents to ER w/ pelvic and rectal pain.
Urology consulted due to new finding of mild bilateral hydroureteronephrosis.
Denies voiding symptoms.
Denies flank pain bilaterally.
Cr 0.9
09/02/23: CTAP w/ IV contrast =>
Mild bilateral hydronephrosis and mild proximal hydroureter likely related to ureteral obstruction by large confluent retroperitoneal lymphadenopathy.
Extensive inguinal, pelvic, and retroperitoneal lymphadenopathy, likely malignant.
Status post left-sided colostomy with mucous fistula. Continued severe wall thickening of the rectum and distal sigmoid colon.
A/P:
Metastatic rectal cancer with LAD
Bilateral mild hydroureteronephrosis secondary to extrinsic compression from retroperitoneal LAD
Cr wnl
No lateralizing flank pain
Given extrinsic compression from bulky LAD, likelihood of stent failure for decompression of bilateral hydroureteronephrosis extremely high - in that scenario, would eventually require PCN placement.
- Given absence of symptoms of obstructive uropathy and normal renal function, no indication for PCN placement currently
- Consider bilateral PCN placement by IR if renal function deteriorates
- Treatment plan per Medical Oncology + Radiation Oncology
D/w Dr. Grider.
[2023-09-02 17:02] VITALS: BMI 31.1
[2023-09-02 17:03] VITALS: BP 154/92
[2023-09-02] MEDS: LOVENOX 40 MG SC (17:16)
[2023-09-02] MEDS: NEURONTIN 300 MG PO (21:40)
[2023-09-03 00:06] VITALS: BP 143/103
[2023-09-03] MEDS: DILAUDID 0.5 MG IV ×3 (00:21→07:38)
[2023-09-03 05:42] LABS: Hematocrit 28.6 % (39.0-52.0); Mean Corp Hgb Conc. 31.5 g/dL (33.0-37.0); Mean Corpuscular Hgb 22.7 pg (27.0-31.0); Mean Platelet Volume 10.1 fL (7.4-10.4); Platelet Count 273 10^3/uL (130-400); Red Blood Cell Count 3.97 10^6/uL (4.70-6.10); Red Cell Dist. Width 15.1 % (11.5-14.5); White Blood Cell Count 3.3 10^3/uL (4.8-10.8)
[2023-09-03] MEDS: ROXICODONE 10 MG PO ×4 (06:02→22:43)
[2023-09-03 06:11] LABS: ALT (SGPT) 56 U/L (0-50); AST (SGOT) 44 U/L (17-59); Albumin 3.3 g/dl (3.5-5.0); Alkaline Phosphatase 56 U/L (38-126); Blood Urea Nitrogen 10 mg/dl (9-20); Calcium 8.8 mg/dl (8.4-10.2); Carbon Dioxide 27 mmol/L (22-30); Chloride 108 mmol/L (98-107); Estimated Creatinine Clearance 100 ml/min; Glucose 90 mg/dl (70-99); Potassium 4.7 mmol/L (3.5-5.1); Sodium 138 mmol/L (135-145); Total Bilirubin 0.5 mg/dl (0.2-1.3); eGFR > 60.00
[2023-09-03 07:00] VITALS: BP 149/102
[2023-09-03] MEDS: NORVASC 5 MG PO (07:36)
--- NOTE | 2023-09-03 11:09 | W.PN.HOSP.TC ---
Today's Communication/Plan
-
see A/P
Assessment / Plan
Assessment / Plan
HPI: 47 yo M DC'd on 08/27 s/p extended right colectomy and Loop sigmoid colostomy creation as of 08/22/23 for large bowel obstruction due to rectal mass p/w rectal pain and decreased p.o. intake.
POS liquid stools in his ostomy.
CT AP report reviewed:
mild b/l ureteral obstruction Lt > Rt b/l hydroureteronephrosis
interval Rt hemicolectomy , LLQ colostomy
mucous fistula
Obstructing rectal mass
extensive RP LAD
A/P:
# New b/l ureteral obstruction Lt > Rt
# b/l hydroureteronephrosis appears to be extrinsic compression of ureters from the soft tissue masses due to known Bulky abdominal adenopathy
Uro on board, Given absence of symptoms of obstructive uropathy and normal renal function, no indication for PCN placement currently
Consider bilateral PCN placement by IR if renal function deteriorates
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
# Bulky abdominal adenopathy/ Extensive metastatic retroperitoneal lymphadenopathy
# Rectoanal pain - Cancer related pain
s/p Extended right colectomy and Loop sigmoid colostomy creation 08/22/23
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
IV Dilaudid added for severe breakthrough pain with plan to transition to oral Dilaudid
Onc CS
# Anemia - multifactorial (recent surgery, cancer)
# Essential HTN
on Norvasc
DVT Px: LMWH
Code: full
Anticipated Discharge: 24 - 48 hours
Subjective/Interval History
-
Date of Service: September 03, 2023
Objective Data
-
Labs:
Laboratory Results
09/03/23
05:11
WBC 3.3 L
Hgb 9.0 L
Hct 28.6 L
Plt Count 273
Sodium 138
Potassium 4.7
Chloride 108 H
Carbon Dioxide 27
BUN 10
Creatinine 1.0
Glucose 90
Calcium 8.8
Total Bilirubin 0.5
AST 44
ALT 56 H
Alkaline Phosphatase 56
Vital Signs:
Vital Signs
Temp Pulse Resp BP Pulse Ox
36.6 C 88 17 149/102 100
09/03/23 07:00 09/03/23 07:36 09/03/23 07:00 09/03/23 07:36 09/03/23 07:00
I&O
09/02/23 09/03/23 09/04/23
06:59 06:59 06:59
Intake Total 960 / 960
Balance 960 / 960
Review of Systems
-
All other systems: Reviewed and negative
Abdomen/GI: Reports Other (intermittent rectal pain)
Physical Exam
-
General: Well Developed, Well Nourished, No Apparent Distress, Comfortable and Conversant
HEENT: Normocephalic and Atraumatic
Respiratory: Clear to Auscultation and Non Labored Respirations; Negative Wheezes or Accessory Resp Muscle Use
Cardiac: Regular Rhythm and S1/S2
GI: Soft, Nontender and Ostomy
Musculoskeletal: No Edema
Skin: Warm and Dry; Negative Rash
Neuro: Awake
Psych: Calm and Intact Judgement/Insight
Data Reviewed
-
Labs: Labs Reviewed by me
--- NOTE | 2023-09-03 11:19 | W.PN.CRS1 ---
Today's Communication / Plan
-
continue diet
pain control
no surgery at this time
rec med onc c/s
Assessment/Plan
-
Assessment: 47-year-old male with recent extended right colectomy and Loop sigmoid colostomy creation due to a large bowel obstruction from rectal cancer, presents to the ER complaining of pain in his pelvis and rectum and also found to have mild
bilateral hydronephrosis and proximal hydroureter
Plan:
1. Okay to continue regular diet.
2. Stoma robles to be removed prior to discharge.
3. Daily wound changes.
4. Stoma RN for stoma care/teaching.
5. OOB as tolerated.
6. Pain control per hospitalist.
7. Recommend med onc consult now that pathology is consistent with rectal cancer.
8. No further surgery at this time.
Subjective Data
Subjective Data
Date of Service: September 03, 2023
Patient states his pain is much more controlled with IV Dilaudid. His stoma is functioning. He denies nausea or vomiting. He is eating. He is sleeping at night now.
Objective Data
-
Vital Signs
Temp Pulse Resp BP Pulse Ox
97.9 F 88 17 149/102 100
09/03/23 07:00 09/03/23 07:36 09/03/23 07:00 09/03/23 07:36 09/03/23 07:00
Intake & Output
09/02/23 09/03/23 09/04/23
06:59 06:59 06:59
Intake Total 960 / 960
Balance 960 / 960
Intake:
Oral fluids 240 / 240
IV fluids (Total) 720 / 720
Other:
Number of approximated MODERATE 3
amounts of urine
Lab Results
09/03/23 05:11
09/03/23 05:11
Physical Exam
-
General: No Acute Distress and AOx3
Abdomen: Soft, Non Distended and Other (stoma warm and pink with function, stoma robles in place)
Skin: Warm and Dry
Wound: Dressing Changed
[2023-09-03 11:27] VITALS: BP 121/82
[2023-09-03] MEDS: DILAUDID 1 MG IV ×2 (12:25→19:40)
--- NOTE | 2023-09-03 13:23 | CON.ONC ---
Impression
Impression
locally advanced rectal cancer, metastatic to retroperitoneal lymph nodes, pMMR
intractable pain
microcytic anemia, normal iron stores
Plan
Plan
Pain mgmt with IV dilaudid, would try to switch to po pain meds when able
Discussed treatment of rectal cancer, to include systemic chemotherapy, with consideration for radiation for palliation of pain
I've asked Rad Onc to see patient in house
Will need outpatient PET to assess extent of disease, and port placement
I've asked pathology to check KRAS, BRAF, NRAS, etc on biopsy specimen
Will arranged med onc f/u in next week or so to make plans to start treatment
Patient History
History of Present Illness
This is a 47 yo M w/ recent diagnosis of locally advanced rectal cancer, with malignant appearing RP lymphadenopathy, who presented with worsening pain in the perineum/rectum, making it difficult to sit or get comfortable. He was admitted here last
week, 08/20 - 08/28/23, and underwent right colon resection (due to poorly viable bowel from obstruction), rectal mass biopsy (poorly diff adenocarcinoma, MMR proficient) and diverting colostomy.
He lives in [facility], but is reluctant to return to [facility] for treatment, as he was there in Jul for similar symptoms and was discharged for workup as outpatient.
Past-Medical/Surgical History
Past Medical History
PMH/PSH - as above, microcytic anemia w/ adequate iron stores (thalassemia?)
Social History
Tobacco: Non-Smoker
Alcohol: None
Employment: Not Employed. 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 Born in [place], has lived in for 20+ years.
Patient Medication
�Medication �Instructions �Recorded �Confirmed �Last Taken �Type
dibucaine 1 % topical ointment 1 applic topical TID PRN anal pain 08/28/23 09/02/23 09/01/23 Rx
30 days #30 grams
gabapentin 300 mg capsule 300 mg PO HS 30 days #30 caps 08/28/23 09/02/23 08/31/23 Rx
acetaminophen 500 mg tablet 1,000 mg PO BIDPRN PRN mild pain 09/02/23 09/02/23 09/01/23 History
(Tylenol Extra Strength)
amlodipine 5 mg tablet 5 mg PO .SEE BELOW Blood 09/02/23 09/02/23 09/01/23 History
Pressure
gabapentin 100 mg capsule 100 mg PO DAILY Pain 09/02/23 09/02/23 09/01/23 History
oxycodone 10 mg tablet 10 mg PO Q6H PRN severe pain 09/02/23 09/02/23 09/01/23 History
Active Medications
Generic Name Dose Route Start Last Admin
Trade Name Freq PRN Reason Stop Dose Admin
Amlodipine Besylate 5 mg 09/02/23 08:00 09/03/23 07:36
Amlodipine 5 Mg Tablet PO 09/30/23 07:59 5 mg
DAILY JENNY Administration
Dibucaine 1 applic 09/02/23 03:21
Dibucaine 1% (Ointment) Tube TOPICAL 09/30/23 03:20
TID PRN
anal pain
Enoxaparin Sodium 40 mg 09/02/23 18:00 09/02/23 17:16
Enoxaparin Sodium 40 Mg/0.4 Ml Syringe SC 09/30/23 17:59 40 mg
QPM JENNY Administration
Gabapentin 300 mg 09/02/23 22:00 09/02/23 21:40
Gabapentin 300 Mg Capsule PO 09/30/23 21:59 300 mg
HS JENNY Administration
Gabapentin 100 mg 09/02/23 08:00 09/03/23 07:42
Gabapentin 100 Mg Capsule PO 09/30/23 07:59 Not Given
BID AT 0800,1700 JENNY
Hydromorphone HCl 1 mg 09/03/23 10:14 09/03/23 12:25
Hydromorphone 1 Mg/Ml Carpuject IV 09/17/23 10:13 1 mg
Q3HPRN PRN Administration
for break thru pain from PO Ox
Oxycodone HCl 10 mg 09/02/23 03:21 09/03/23 10:40
Oxycodone 10 Mg Regular Release Tablet PO 09/16/23 03:20 10 mg
Q4HPRN PRN Administration
severe pain
Sodium Chloride 0 flush 09/02/23 04:00
Sodium Chloride 0.9% (Flush) Syringe IV 09/30/23 03:59
PER PROTOCOL JENNY
Review of Systems
-
History Source: Patient
All Other Systems: Not reviewed unless documented
Physical Exam
-
General: Well Developed, Well Nourished, Pain and Conversant
HEENT: Moist Mucous Membranes
Musculoskeletal: No Clubbing, No Cyanosis and No Edema
Skin: Warm
Psych: Calm and Intact Judgement/Insight
Labs
Lab Results
WBC 3.3 10^3/uL (4.8-10.8) L 09/03/23 05:11
RBC 3.97 10^6/uL (4.70-6.10) L 09/03/23 05:11
Hgb 9.0 g/dL (13.0-18.0) L 09/03/23 05:11
Hct 28.6 % (39.0-52.0) L 09/03/23 05:11
MCV 72.0 fL (80.0-94.0) L 09/03/23 05:11
MCH 22.7 pg (27.0-31.0) L 09/03/23 05:11
MCHC 31.5 g/dL (33.0-37.0) L 09/03/23 05:11
RDW 15.1 % (11.5-14.5) H 09/03/23 05:11
Plt Count 273 10^3/uL (130-400) 09/03/23 05:11
MPV 10.1 fL (7.4-10.4) 09/03/23 05:11
Abs Immat Gran (auto) 0.0 10^3/uL (0-0.05) 09/01/23 22:30
Absolute Neuts (auto) 2.5 10^3/uL (1.4-6.5) 09/01/23 22:30
Absolute Lymphs (auto) 0.8 10^3/uL (1.2-3.4) L 09/01/23 22:30
Absolute Monos (auto) 0.5 10^3/uL (0.1-0.6) 09/01/23 22:30
Absolute Eos (auto) 0.0 10^3/uL (0-0.7) 09/01/23 22:30
Absolute Basos (auto) 0.0 10^3/uL (0-0.2) 09/01/23 22:30
Immature Gran % 0.5 % (0-0.5) 09/01/23 22:30
Neutrophils % 65.3 % (42.2-75.2) 09/01/23 22:30
Lymphocytes % 20.6 % (20.5-51.1) 09/01/23 22:30
Monocytes % 12.1 % (1.7-9.3) H 09/01/23 22:30
Eosinophils % 1.0 % (0-6) 09/01/23 22:30
Basophils % 0.5 % (0-2) 09/01/23 22:30
Creatinine 1.0 mg/dL (0.7-1.3) 09/03/23 05:11
Vital Signs
Vital Signs
Temp Pulse Resp BP Pulse Ox
97.9 F 88 17 121/82 100
09/03/23 07:00 09/03/23 07:36 09/03/23 07:00 09/03/23 11:27 09/03/23 07:00
[2023-09-03 14:36] VITALS: BMI 31.1
[2023-09-03 15:00] VITALS: BP 146/97
--- NOTE | 2023-09-03 16:11 | CM ---
Sleepy oriented patient who lives with his daughter Monie in a 2 story with 1 step to enter and 14 steps to bed bath room..HE is independent in driving and all activities of daily living.He has a colostomy and had [facility] after last dc
[phone] fax [phone] .He was issues a walker this stay.
No SNF Hx /[facility] hx
Pharmacy [facility] [address] [place] [address] Maryam Harvey [facility]
PLAN Home with [facility] [phone] fax [phone] will need to call [facility] and send update at dc . Not in Care [facility].
[2023-09-03] MEDS: LOVENOX 40 MG SC (16:25)
[2023-09-03] MEDS: NEURONTIN PO (21:09)
[2023-09-03 23:39] VITALS: BP 118/81
[2023-09-04] MEDS: DILAUDID 1 MG IV ×6 (00:31→22:39)
[2023-09-04 05:34] LABS: Hematocrit 28.2 % (39.0-52.0); Hemoglobin 8.9 g/dL (13.0-18.0); Mean Corp Hgb Conc. 31.6 g/dL (33.0-37.0); Mean Corpuscular Hgb 22.5 pg (27.0-31.0); Mean Corpuscular Volume 71.2 fL (80.0-94.0); Mean Platelet Volume 9.9 fL (7.4-10.4); Platelet Count 271 10^3/uL (130-400); Red Blood Cell Count 3.96 10^6/uL (4.70-6.10); Red Cell Dist. Width 15.1 % (11.5-14.5); White Blood Cell Count 3.3 10^3/uL (4.8-10.8)
[2023-09-04 05:58] LABS: ALT (SGPT) 43 U/L (0-50); AST (SGOT) 32 U/L (17-59); Albumin 3.3 g/dl (3.5-5.0); Alkaline Phosphatase 60 U/L (38-126); Blood Urea Nitrogen 11 mg/dl (9-20); Calcium 8.9 mg/dl (8.4-10.2); Carbon Dioxide 25 mmol/L (22-30); Chloride 105 mmol/L (98-107); Direct Bilirubin 0.3 mg/dl (0.0-0.4); Estimated Creatinine Clearance 71 ml/min; Glucose 91 mg/dl (70-99); Potassium 4.1 mmol/L (3.5-5.1); Sodium 139 mmol/L (135-145); Total Bilirubin 0.5 mg/dl (0.2-1.3); Total Protein 5.9 g/dl (6.3-8.2); eGFR > 60.00
[2023-09-04 07:35] VITALS: BP 139/91
[2023-09-04] MEDS: NORVASC 5 MG PO (07:56)
[2023-09-04] MEDS: ROXICODONE 10 MG PO ×3 (09:12→19:23)
--- NOTE | 2023-09-04 10:48 | W.PN.HOSP.TC ---
Today's Communication/Plan
-
see A/P
Assessment / Plan
Assessment / Plan
HPI: 47 yo M DC'd on 08/27 s/p extended right colectomy and Loop sigmoid colostomy creation as of 08/22/23 for large bowel obstruction due to rectal mass p/w rectal pain and decreased p.o. intake.
POS liquid stools in his ostomy.
CT AP report reviewed:
mild b/l ureteral obstruction Lt > Rt b/l hydroureteronephrosis
interval Rt hemicolectomy , LLQ colostomy
mucous fistula
Obstructing rectal mass
extensive RP LAD
A/P:
# New b/l ureteral obstruction Lt > Rt
# b/l hydroureteronephrosis appears to be extrinsic compression of ureters from the soft tissue masses due to known Bulky abdominal adenopathy
Uro on board, Given absence of symptoms of obstructive uropathy and normal renal function, no indication for PCN placement currently
Consider bilateral PCN placement by IR if renal function deteriorates
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
# Bulky abdominal adenopathy/ Extensive metastatic retroperitoneal lymphadenopathy
# Rectoanal pain - Cancer related pain
s/p Extended right colectomy and Loop sigmoid colostomy creation 08/22/23
Pain control with MISSILE PAD MECHANIC Oxycodone, Gabapentin
IV Dilaudid added for severe breakthrough pain with plan to transition to oral Dilaudid
Also trial of sitz bath since it would not harm him
Onc on board
Outpt rad onc follow up
Staging imaging with CT chest noted Moderate bilateral upper abdominal retrocrural and left para-aortic retroperitoneal lymphadenopathy consistent with metastatic disease, Stable
# APPLE
SCr today at 1.4 from 1.0
restart gentle IVF NSS 60 cc/hr
Monitor SCr
# Anemia - multifactorial (recent surgery, cancer)
# Essential HTN
on Norvasc
DVT Px: LMWH
Code: full
DW RN
Anticipated Discharge: Within 24 hours
Subjective/Interval History
-
Date of Service: September 04, 2023
Objective Data
-
Labs:
Laboratory Results
09/04/23
05:16
WBC 3.3 L
Hgb 8.9 L
Hct 28.2 L
Plt Count 271
Sodium 139
Potassium 4.1
Chloride 105
Carbon Dioxide 25
BUN 11
Creatinine 1.4 H
Glucose 91
Calcium 8.9
Total Bilirubin 0.5
AST 32
ALT 43
Alkaline Phosphatase 60
Vital Signs:
Vital Signs
Temp Pulse Resp BP Pulse Ox
36.7 C 88 16 139/91 100
09/04/23 07:35 09/04/23 07:56 09/04/23 07:35 09/04/23 07:56 09/04/23 07:35
I&O
09/03/23 09/04/23 09/05/23
06:59 06:59 06:59
Intake Total 960 / 960 1999
Balance 960 / 960 1999
Review of Systems
-
All other systems: Reviewed and negative
Abdomen/GI: Reports Other (intermittent rectal pain)
Physical Exam
-
General: Well Developed, Well Nourished, No Apparent Distress, Comfortable and Conversant
HEENT: Normocephalic and Atraumatic
Respiratory: Clear to Auscultation and Non Labored Respirations; Negative Wheezes or Accessory Resp Muscle Use
Cardiac: Regular Rhythm and S1/S2
GI: Soft, Nontender and Ostomy
Musculoskeletal: No Edema
Skin: Warm and Dry; Negative Rash
Neuro: Awake
Psych: Calm and Intact Judgement/Insight
Data Reviewed
-
Labs: Labs Reviewed by me
[2023-09-04] MEDS: NSS 1000 IV (11:57)
[2023-09-04] MEDS: NUPERCAINAL 1% OINTMENT 1 APPLIC TOPICAL (11:57)
[2023-09-04] MEDS: TORADOL 15 MG IV (12:37)
[2023-09-04 15:00] VITALS: BP 138/84
[2023-09-04] MEDS: LOVENOX 40 MG SC (17:05)
[2023-09-04] MEDS: NEURONTIN PO (21:32)
[2023-09-04] MEDS: COMPAZINE 5 MG IV (23:07)
[2023-09-04 23:31] VITALS: BP 138/93
[2023-09-05] MEDS: ROXICODONE 10 MG PO (03:17)
[2023-09-05] MEDS: DILAUDID 1 MG IV ×5 (03:58→20:11)
[2023-09-05] MEDS: NSS 1000 IV (05:33)
[2023-09-05 05:45] LABS: Hematocrit 27.6 % (39.0-52.0); Hemoglobin 8.9 g/dL (13.0-18.0); Mean Corp Hgb Conc. 32.2 g/dL (33.0-37.0); Mean Corpuscular Hgb 22.6 pg (27.0-31.0); Mean Corpuscular Volume 70.2 fL (80.0-94.0); Mean Platelet Volume 10.2 fL (7.4-10.4); Platelet Count 300 10^3/uL (130-400); Red Blood Cell Count 3.93 10^6/uL (4.70-6.10); Red Cell Dist. Width 15.7 % (11.5-14.5); White Blood Cell Count 3.6 10^3/uL (4.8-10.8)
[2023-09-05 06:13] LABS: Blood Urea Nitrogen 13 mg/dl (9-20); Calcium 8.8 mg/dl (8.4-10.2); Carbon Dioxide 24 mmol/L (22-30); Chloride 108 mmol/L (98-107); Estimated Creatinine Clearance 59 ml/min; Glucose 82 mg/dl (70-99); Potassium 4.3 mmol/L (3.5-5.1); Sodium 137 mmol/L (135-145); eGFR 49.11
[2023-09-05 07:00] VITALS: BP 117/79
[2023-09-05] MEDS: NORVASC PO (08:45)
--- NOTE | 2023-09-05 09:46 | W.PN.HOSP.TC ---
Addendum entered and electronically signed by Sherley Hunter MD 09/05/23 17:52:
IR consult placed for bilateral nephrostomy tube placement.
Discussed with IR, plan for nephrostomy tube placement tomorrow
Addendum entered and electronically signed by Sherley Hunter MD 09/05/23 10:53:
fentanyl patch added for severe pain that is unrelieved with current high Dilaudid dose
Addendum entered and electronically signed by Sherley Hunter MD 09/05/23 10:16:
d/w CRS
Original Note:
Today's Communication/Plan
-
see A/P
Assessment / Plan
Assessment / Plan
HPI: 47 yo M DC'd on 08/27 s/p extended right colectomy and Loop sigmoid colostomy creation as of 08/22/23 for large bowel obstruction due to rectal mass p/w rectal pain and decreased p.o. intake.
POS liquid stools in his ostomy.
CT AP report reviewed:
mild b/l ureteral obstruction Lt > Rt b/l hydroureteronephrosis
interval Rt hemicolectomy , LLQ colostomy
mucous fistula
Obstructing rectal mass
extensive RP LAD
A/P:
# New b/l ureteral obstruction Lt > Rt
# b/l hydroureteronephrosis appears to be extrinsic compression of ureters from the soft tissue masses due to known Bulky abdominal adenopathy
with worsening SCr, will ask Uro to reevaluate for renal stent vs PCN
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
# Bulky abdominal adenopathy/ Extensive metastatic retroperitoneal lymphadenopathy
# Rectoanal pain - Cancer related pain
s/p Extended right colectomy and Loop sigmoid colostomy creation 08/22/23
Pain control with FURNISHINGS CONSERVATOR Oxycodone, Gabapentin
IV Dilaudid Q3H PRN for severe breakthrough pain with plan to transition to oral Dilaudid at the time of discharge
Also could try sitz bath since it would not harm him (pt declined)
Onc on board
Outpt rad onc follow up
Staging imaging with CT chest noted Mod BL upper abdominal retrocrural and left para-aortic retroperitoneal lymphadenopathy consistent with metastatic disease, Stable.
Follow MRI pelvis ordered by CRS
# APPLE
SCr today at 1.7 from 1.0
cont gentle IVF NSS at 60 cc/hr
Monitor SCr
Uro to reevaluate for stent vs PCN
# Anemia - multifactorial (recent surgery, cancer)
# Essential HTN
on Norvasc
DVT Px: LMWH
Code: full
Anticipated Discharge: 24 - 48 hours
Subjective/Interval History
-
Date of Service: September 05, 2023
Objective Data
-
Labs:
Laboratory Results
09/05/23
05:15
WBC 3.6 L
Hgb 8.9 L
Hct 27.6 L
Plt Count 300
Sodium 137
Potassium 4.3
Chloride 108 H
Carbon Dioxide 24
BUN 13
Creatinine 1.7 H
Glucose 82
Calcium 8.8
Vital Signs:
Vital Signs
Temp Pulse Resp BP Pulse Ox
36.8 C 79 18 117/79 97
09/05/23 07:00 09/05/23 07:00 09/05/23 07:00 09/05/23 07:00 09/05/23 07:00
I&O
09/04/23 09/05/23 09/06/23
06:59 06:59 06:59
Intake Total 1999 1200 / 1200
Balance 1999 1200 / 1200
Review of Systems
-
All other systems: Reviewed and negative
Abdomen/GI: Reports Other (intermittent rectal pain)
Physical Exam
-
General: Well Developed, Well Nourished, No Apparent Distress, Comfortable and Conversant
HEENT: Normocephalic and Atraumatic
Respiratory: Clear to Auscultation and Non Labored Respirations; Negative Wheezes or Accessory Resp Muscle Use
Cardiac: Regular Rhythm and S1/S2
GI: Soft, Nontender and Ostomy
Musculoskeletal: No Edema
Skin: Warm and Dry; Negative Rash
Neuro: Awake
Psych: Calm and Intact Judgement/Insight
Data Reviewed
-
Labs: Labs Reviewed by me
--- NOTE | 2023-09-05 10:15 | CM ---
Pt needing IV and po pain meds.
He was issues a walker this stay.
Spoke with Aishwarya templeton at [facility] after last dc [phone] Pt is a current pt of theirs She said they will restart at sd.
They do not have care port.
Updates faxed to fax
Daughter will drive him home at sd.
PLAN Home with [facility] fax dc summary [phone] or [phone]
--- NOTE | 2023-09-05 10:33 | W.PN.CRS1 ---
Today's Communication / Plan
-
[id number] placement today
MRI with sedation
NPO
Assessment/Plan
-
Assessment: 47-year-old male with recent extended right colectomy and Loop sigmoid colostomy creation due to a large bowel obstruction from rectal cancer, presents to the ER complaining of pain in his pelvis and rectum and also found to have mild
bilateral hydronephrosis and proximal hydroureter
Plan:
1. Will re-attempt MRI pelvis with rectal cancer this morning with anesthesia, spoke with termite technician/anesthesia regarding this timing. Likely around 2pm.
2. Stoma robles to be removed prior to discharge.
3. Daily wound changes.
4. Stoma RN for stoma care/teaching.
5. OOB as tolerated.
6. Pain control per hospitalist.
7. Will plan for an [id number] today. Remain NPO.
Subjective Data
Subjective Data
Date of Service: September 05, 2023
Patient states he has been in a lot of pain. He was not able to tolerate the MRI yesterday. He is tolerating a diet. His stoma is functioning.
Objective Data
-
Vital Signs
Temp Pulse Resp BP Pulse Ox
98.3 F 79 18 117/79 97
09/05/23 07:00 09/05/23 07:00 09/05/23 07:00 09/05/23 07:00 09/05/23 07:00
Intake & Output
09/04/23 09/05/23 09/06/23
06:59 06:59 06:59
Intake Total 1999 / 1999 1200 / 1200
Balance 1999 / 1999 1200 / 1200
Intake:
Oral fluids 1999 / 1999 1200 / 1200
Other:
Number of approximated MODERATE 3 2
amounts of urine
Lab Results
09/05/23 05:15
09/05/23 05:15
Physical Exam
-
General: No Acute Distress and AOx3
Abdomen: Soft, Non Distended, Tender and Other (colostomy warm and pink with function)
Skin: Warm and Dry
--- NOTE | 2023-09-05 11:09 | W.PN.ONC ---
Addendum entered and electronically signed by Rafa Hopson DO 09/05/23 11:48:
Patient examined and chart reviewed independently. Agree with the impression and plan as outlined by GIGI below. Will continue to coordinate combined modality therapy simulation with radiation planned for Saturday. Port placement and concomitant
continuous infusion 5-FU. Titrate pain medications.
Original Note:
Today's Communication / Plan
-
Port placement today
MRI pelvis today, NPO
Pain management is ongoing:
IV Dilaudid 1mg Q3H PRN
Oxycodone 10mg Q4H PRN
Fentanyl patch added
Pathology to check KRAS, BRA, NRAS etc on biopsy
Supportive care, emotional support
Will need PET to assess the extent of disease
Urology consult
VNA at discharge
Radiation Oncology has scheduled patient for Saturday, 09/08 at 0930.
[facility] office has been notified to assist patient with scheduling PET/office visit to make plans for treatment.
We will follow.
Impression
Impression
Locally advanced rectal cancer, metastatic to retroperitoneal lymph nodes, pMMR
s/p extended right colectomy and Loop sigmoid colostomy creation 08/22/23
Intractable rectoanal pain
Microcytic anemia, normal iron stores
Acute kidney injury
Bilateral ureteral obstruction with hydroureteronephrosis
Subjective/Objective
Subjective/Objective
Patient is in a great deal of pain/discomfort in the rectal area. He is on all fours during our conversation trying to get comfortable. He states the Oxy provides partial relief and IV Dilaudid provides brief relief. He states he is scheduled for
Radiation Oncology appt on Saturday at 0930 with . He lives over an hour from [place] and understands this may be difficult for him with transportation. He also states the Gabapentin did not help much to improve his overall pain.
Vital Signs:
Vital Signs
Temp Pulse Resp BP Pulse Ox
98.3 F 79 18 117/79 97
09/05/23 07:00 09/05/23 07:00 09/05/23 07:00 09/05/23 07:00 09/05/23 08:45
physical exam:
aaox3, appears uncomfortable
stoma/ostomy functioning
no edema
Lab Results:
Laboratory Data
WBC 3.6 10^3/uL (4.8-10.8) L 09/05/23 05:15
Hgb 8.9 g/dL (13.0-18.0) L 09/05/23 05:15
Plt Count 300 10^3/uL (130-400) 09/05/23 05:15
eGFR 49.11 09/05/23 05:15
09/02/23 CT abdomen/pelvis: Mild bilateral hydronephrosis and mild proximal hydroureter, new compared to prior CT. Findings are likely related to ureteral narrowing/obstruction by large confluent retroperitoneal lymphadenopathy.Extensive inguinal,
pelvic, and retroperitoneal lymphadenopathy, likely malignant.Status post left-sided colostomy with mucous fistula. Continued severe wall thickening of the rectum and distal sigmoid colon, likely related to the patient's known malignancy. No
evidence of intestinal obstruction.Small amount of abdominal free fluid adjacent to the liver and spleen, which may be postoperative or reactive. No intra-abdominal abscess formation appreciated.
09/04/[address]: Moderate bilateral upper abdominal retrocrural and left para-aortic retroperitoneal lymphadenopathy consistent with metastatic disease. Stable
[2023-09-05] MEDS: DURAGESIC 25 MCG/HR PATCH 1 PATCH TRANSDERM (13:23)
--- NOTE | 2023-09-05 13:28 | PTCARENOTE ---
fentanyl patch applied to left chest wall, as this is a new order- no previous patch to remove
--- NOTE | 2023-09-05 15:18 | W.PN.UPDATE ---
Update Note
Progress Note Update
Due to timing of MRI, we will move [id number] to tomorrow's schedule. Unable to notify patient due to him being in MRI. I left a voicemail with his daughter and I notified Dr. Hunter and nurse.
[2023-09-05 16:20] VITALS: BP 123/75; BP_SYST 15
[2023-09-05 16:35] VITALS: BP 137/88; BP_SYST 16
[2023-09-05] MEDS: HEPARIN 5000 UNITS SC (20:14)
[2023-09-05] MEDS: NEURONTIN PO (22:19)
[2023-09-05 23:18] VITALS: BP 142/97
[2023-09-06] VITALS (7 sets, daily range): BP systolic 93–129; BP diastolic 67–93
[2023-09-06] MEDS: NSS 1000 IV ×2 (00:43→18:26)
[2023-09-06] MEDS: DILAUDID 1 MG IV ×6 (00:43→22:33)
[2023-09-06 05:28] LABS: Hematocrit 27.1 % (39.0-52.0); Hemoglobin 8.8 g/dL (13.0-18.0); Mean Corp Hgb Conc. 32.5 g/dL (33.0-37.0); Mean Corpuscular Hgb 23.1 pg (27.0-31.0); Mean Corpuscular Volume 71.1 fL (80.0-94.0); Mean Platelet Volume 9.6 fL (7.4-10.4); Platelet Count 291 10^3/uL (130-400); Red Blood Cell Count 3.81 10^6/uL (4.70-6.10); Red Cell Dist. Width 15.7 % (11.5-14.5); White Blood Cell Count 3.6 10^3/uL (4.8-10.8)
[2023-09-06 05:57] LABS: Blood Urea Nitrogen 17 mg/dl (9-20); Calcium 9.1 mg/dl (8.4-10.2); Carbon Dioxide 21 mmol/L (22-30); Chloride 107 mmol/L (98-107); Estimated Creatinine Clearance 38 ml/min; Glucose 65 mg/dl (70-99); Potassium 4.6 mmol/L (3.5-5.1); Sodium 139 mmol/L (135-145)
--- NOTE | 2023-09-06 08:44 | W.PN.HOSP.TC ---
Today's Communication/Plan
-
see A/P
Assessment / Plan
Assessment / Plan
HPI: 47 yo M DC'd on 08/27 s/p extended right colectomy and Loop sigmoid colostomy creation as of 08/22/23 for large bowel obstruction due to rectal mass p/w rectal pain and decreased p.o. intake.
POS liquid stools in his ostomy.
CT AP report reviewed:
mild b/l ureteral obstruction Lt > Rt b/l hydroureteronephrosis
interval Rt hemicolectomy , LLQ colostomy
mucous fistula
Obstructing rectal mass
extensive RP LAD
A/P:
# New b/l ureteral obstruction Lt > Rt
# b/l hydroureteronephrosis appears to be extrinsic compression of ureters from the soft tissue masses due to known Bulky abdominal adenopathy
# APPLE due to obstructive uropathy
SCr today at 2.6 from 1.0 on admission
IR CS placed for BL perc nephrostomy tube placement, contacted yesterday and again today to expedite procedure
Can check UA reflex Cx (although less likely infectious)
cont gentle IVF NSS at 60 cc/hr
Uro on board
Renal CS
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
# Bulky abdominal adenopathy/ Extensive metastatic retroperitoneal lymphadenopathy
# Rectoanal pain - Cancer related pain
s/p Extended right colectomy and Loop sigmoid colostomy creation 08/22/23
Pain control with PROCESS CHEESE COOKER Oxycodone, Gabapentin
IV Dilaudid Q3H PRN for severe breakthrough pain with plan to transition to oral Dilaudid at the time of discharge
Also could try sitz bath since it would not harm him (pt declined)
Onc on board, Outpt rad onc follow up
Staging imaging with CT chest noted Mod BL upper abdominal retrocrural and left para-aortic retroperitoneal lymphadenopathy consistent with metastatic disease, Stable.
MRI pelvis reviewed
Added Xanax PRN for anxiety
For chemoport placement
# Anemia - multifactorial (recent surgery, cancer)
# Essential HTN
on Norvasc
DVT Px: LMWH
Code: full
DW RN
DW IR/renal/CRS team
total time spent 51 min
Anticipated Discharge: > 48 hours
Subjective/Interval History
-
Date of Service: September 06, 2023
Objective Data
-
Labs:
Laboratory Results
09/06/23
05:09
WBC 3.6 L
Hgb 8.8 L
Hct 27.1 L
Plt Count 291
Sodium 139
Potassium 4.6
Chloride 107
Carbon Dioxide 21 L
BUN 17
Creatinine 2.6 H
Glucose 65 L
Calcium 9.1
Vital Signs:
Vital Signs
Temp Pulse Resp BP Pulse Ox
37.2 C 83 16 128/83 99
09/06/23 08:17 09/06/23 08:17 09/06/23 08:17 09/06/23 08:17 09/06/23 08:17
I&O
09/05/23 09/06/23 09/07/23
06:59 06:59 06:59
Intake Total 1200 / 1200 1680 / 1680
Output Total 475 / 475
Balance 1200 / 1200 1205 / 1205
Review of Systems
-
All other systems: Reviewed and negative
Abdomen/GI: Reports Other (intermittent rectal pain)
Genitourinary: Reports Other (decreased urine outpt )
Physical Exam
-
General: Well Developed, Well Nourished, No Apparent Distress and Conversant
HEENT: Normocephalic and Atraumatic
Respiratory: Clear to Auscultation and Non Labored Respirations; Negative Wheezes or Accessory Resp Muscle Use
Cardiac: Regular Rhythm and S1/S2
GI: Soft, Nontender and Ostomy
Musculoskeletal: No Edema
Skin: Warm and Dry; Negative Rash
Neuro: Awake
Psych: Calm and Intact Judgement/Insight
Data Reviewed
-
Labs: Labs Reviewed by me
--- NOTE | 2023-09-06 09:12 | W.PN.ONC ---
Addendum entered and electronically signed by Margarito Hawley MD 09/06/23 14:16:
Oncology Addendum:
Patient seen and evaluated and agree w/ STACKER ATTENDANT note and plan as outlined
-rectal cancer - locally advanced - s/p resection w/ sigmoid colostomy
-obstructive nephropathy - for perc nephrostomy tubes
-XRT planned for Saturday
-outpt onc f/u to be arranged
Original Note:
Today's Communication / Plan
-
CBC, CMP daily
Hgb stable at 8.8
Ongoing pain management
4 Creatinine 2.6
Plans for IR today for port placement and bilateral PCNs
Outpatient Rad Onc planned for Friday 09/08. We have ordered outpatient PET/CT for next week which [place] will assist with scheduling. He will follow up with Dr. Hopson in the [place] office to begin treatment and discuss further plans. office is
aware, updated patient.
Impression
Impression
Locally advanced rectal cancer, metastatic to retroperitoneal lymph nodes, pMMR
s/p extended right colectomy and Loop sigmoid colostomy creation 08/22/23
Rectoanal pain
Microcytic anemia, normal iron stores
Acute kidney injury, Creat rising
Bilateral ureteral obstruction with hydroureteronephrosis
Subjective/Objective
Subjective/Objective
Patient is resting in bed, lying on his side. He states his pain is somewhat improved with addition of fentanyl patch. He denies nausea, vomiting, or back pain. He is asking for ice chips.
Vital Signs:
Vital Signs
Temp Pulse Resp BP Pulse Ox
98.9 F 83 16 128/83 99
09/06/23 08:17 09/06/23 08:17 09/06/23 08:17 09/06/23 08:17 09/06/23 08:17
Lab Results:
Laboratory Data
WBC 3.6 10^3/uL (4.8-10.8) L 09/06/23 05:09
Hgb 8.8 g/dL (13.0-18.0) L 09/06/23 05:09
Plt Count 291 10^3/uL (130-400) 09/06/23 05:09
eGFR 29.50 09/06/23 05:09
physical exam unchanged.
[2023-09-06] MEDS: HEPARIN 5000 UNITS SC ×2 (09:49→22:17)
[2023-09-06] MEDS: NORVASC 5 MG PO (09:52)
--- NOTE | 2023-09-06 12:15 | W.PN.CRS1 ---
Today's Communication / Plan
-
nephrostomy tube placement
port placement saturday
Assessment/Plan
-
Assessment: 47-year-old male with recent extended right colectomy and Loop sigmoid colostomy creation due to a large bowel obstruction from rectal cancer, presents to the ER complaining of pain in his pelvis and rectum and also found to have mild
bilateral hydronephrosis and proximal hydroureter
Plan:
1. Creatinine worsening - 2.6 today. Going to IR today for b/l percutaneous nephrology tube placement.
2. Stoma robles to be removed prior to discharge.
3. Daily wound changes.
4. Stoma RN for stoma care/teaching.
5. OOB as tolerated.
6. Pain control per hospitalist.
7. Given need for PCN placement, will hold off on port placement today. Spoke with IR, they will place it on Saturday09/09/2023.
Subjective Data
Subjective Data
Date of Service: September 06, 2023
Patient states he is still in a bit of pain but it is starting to feel better.
Objective Data
-
Vital Signs
Temp Pulse Resp BP Pulse Ox
98.9 F 83 16 128/83 99
09/06/23 08:17 09/06/23 09:52 09/06/23 08:17 09/06/23 09:52 09/06/23 08:17
Intake & Output
09/05/23 09/06/23 09/07/23
06:59 06:59 06:59
Intake Total 1200 / 1200 1680 / 1680
Output Total 475 / 475
Balance 1200 / 1200 1205 / 1205
Intake:
Oral fluids 1200 / 1200 960 / 960
IV fluids (Total) 720 / 720
Output:
Urine, Voided 475 / 475
Other:
Number of approximated MODERATE 2 1
amounts of urine
Lab Results
09/06/23 05:09
09/06/23 05:09
Physical Exam
-
General: No Acute Distress and AOx3
Abdomen: Soft, Tender and Other (colostomy warm and pink with function )
Skin: Warm and Dry
Incision: Clear, Dry, Intact
--- NOTE | 2023-09-06 13:07 | PTCARENOTE ---
pt continues to refuse PO Oxy D/T degree of pain
[2023-09-06 13:18] LABS: Urine Albumin Negative (Neg - Trace); Urine Bilirubin Negative (Negative); Urine Character Clear (Clear); Urine Color Yellow; Urine Glucose Negative (Negative); Urine Ketone Trace (Negative); Urine Leukocyte Negative (Negative); Urine Nitrite Negative (Negative); Urine Occult Blood Negative (Negative); Urine Specific Gravity 1.015 (<1.030); Urine Urobilinogen Negative (Neg - 1+)
[2023-09-06] MEDS: ANCEF 10 IV (13:50)
--- NOTE | 2023-09-06 15:06 | W.CON.NEPH ---
Consultation
-
Date/Time Consultation Requested: 09/06/23 08:04
Date/Time Consultation Performed: 09/06/23 1830
Requesting Provider: deena Blackman
Performing Provider: Betty Toscano
Reason for Consultation: APPLE
Medical History
-
Chief Complaint: Rectal pain
History of Present Illness:
47 yo M w/ HTN on CCB, wiht recent diagnosis of locally advanced rectal cancer, with malignant appearing RP lymphadenopathy s/p Right colon resection, rectal mass biopsy (poorly diff adenocarcinoma, MMR proficient) and diverting colostomy during
admit 08/20-08/28/23. who presented with worsening pain in the perineum/rectum on 09/02., making it difficult to sit or get comfortable. CT of the abdomen and pelvis shows mild bilateral hydronephrosis and mild proximal hydroureter, new compared to
prior CT. Findings are likely related to ureteral narrowing/obstruction by large confluent retroperitoneal lymphadenopathy. Extensive inguinal, pelvic, and retroperitoneal lymphadenopathy, likely malignant. His cr increasing since admit from 0.8 to
2.6 today. He is s/p PCN tubes today. He has no CP or sob, no abd pain but has rectal pain. No n/v.
Past Medical History
HTN
locally advanced rectal cancer, with malignant appearing RP lymphadenopathy
microcytic anemia w/ adequate iron stores (thalassemia?)
Social History
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 Born in [facility], has lived in for 20+ years.
Tobacco: Non-Smoker
Alcohol: None
Living: With Family
Employment: Not Employed
Family History
sister with issue and resulted kidney failure, in [place]
Allergies / Home Medications
Allergy/AdvReac Type Severity Reaction Status Date / Time
No Known Allergies Allergy Verified 09/01/23 21:19
�Medication �Instructions �Recorded �Confirmed �Type
dibucaine 1 % topical ointment 1 applic topical TID PRN anal pain 08/28/23 09/02/23 Rx
30 days #30 grams
gabapentin 300 mg capsule 300 mg PO HS 30 days #30 caps 08/28/23 09/02/23 Rx
acetaminophen 500 mg tablet 1,000 mg PO BIDPRN PRN mild pain 09/02/23 09/02/23 History
(Tylenol Extra Strength)
amlodipine 5 mg tablet 5 mg PO .SEE BELOW Blood 09/02/23 09/02/23 History
Pressure
gabapentin 100 mg capsule 100 mg PO DAILY Pain 09/02/23 09/02/23 History
oxycodone 10 mg tablet 10 mg PO Q6H PRN severe pain 09/02/23 09/02/23 History
Review of Systems
-
All other complete 12 point ROS have been inquired and found negative other than state din HPI
Physical Exam
Vital Signs
Vital Signs
Temp Pulse Resp BP Pulse Ox
98.1 F 93 18 125/93 99
09/06/23 13:16 09/06/23 13:16 09/06/23 13:16 09/06/23 13:16 09/06/23 13:16
Lab Results
WBC 3.6 10^3/uL (4.8-10.8) L 09/06/23 05:09
RBC 3.81 10^6/uL (4.70-6.10) L 09/06/23 05:09
Hgb 8.8 g/dL (13.0-18.0) L 09/06/23 05:09
Hct 27.1 % (39.0-52.0) L 09/06/23 05:09
Plt Count 291 10^3/uL (130-400) 09/06/23 05:09
Sodium 139 mmol/L (135-145) 09/06/23 05:09
Potassium 4.6 mmol/L (3.5-5.1) 09/06/23 05:09
Chloride 107 mmol/L (98-107) 09/06/23 05:09
Carbon Dioxide 21 mmol/L (22-30) L 09/06/23 05:09
BUN 17 mg/dl (9-20) 09/06/23 05:09
Creatinine 2.6 mg/dL (0.7-1.3) H 09/06/23 05:09
eGFR 29.50 09/06/23 05:09
Glucose 65 mg/dl (70-99) L 09/06/23 05:09
Calcium 9.1 mg/dl (8.4-10.2) 09/06/23 05:09
Albumin 3.3 g/dl (3.5-5.0) L 09/04/23 05:16
09/03/23: CT abd pelvis with contrast
IMPRESSION:
1. Mild bilateral hydronephrosis and mild proximal hydroureter, new compared to prior CT. Findings are likely related to ureteral narrowing/obstruction by large confluent retroperitoneal lymphadenopathy.
2. Extensive inguinal, pelvic, and retroperitoneal lymphadenopathy, likely malignant.
3. Status post left-sided colostomy with mucous fistula. Continued severe wall thickening of the rectum and distal sigmoid colon, likely related to the patient's known malignancy. No evidence of intestinal obstruction.
4. Small amount of abdominal free fluid adjacent to the liver and spleen, which may be postoperative or reactive. No intra-abdominal abscess formation appreciated.
09/04/23: CT chest with contrast
IMPRESSION:
Moderate bilateral upper abdominal retrocrural and left para-aortic retroperitoneal lymphadenopathy consistent with metastatic disease.. Stable
pelvis MRI: 09/05/23
CLINICAL INFORMATION
47-year-old male with rectal cancer
COMPARISON: CT abdomen/pelvis 09/02/2023
FINDINGS:
1. PRMARY TUMOR MORPHOLOGY, LOCATION, AND CHARACTERISTICS
Distance to anal verge: 4.3 cm
Distance to top of anal sphincter complex/anorectal junction: 0 cm
Relationship to the anterior peritoneal reflection: Below
Craniocaudal length of the tumor: 5.4 cm
Circumferential location (Clock face of tumor): 12 o' clock to 12 o' clock
Morphology: Annular/circumferential
Mucinous component: No. (Greater than 50% of the tumor/tumor pole with very high T2 signal intensity compared to perirectal fat/muscle)
2. EXTRAMURAL DEPTH OF INVASION AND MR T-CATEGORY
Extramural depth of invasion (Use 0mm for T1 or T2 tumour): 4.5 mm (10-11:00 on series 401, image 23) - note that this is not well delineated due to suboptimal image quality.
T category: T3b
3. FOR LOW RECTAL TUMORS - Invasion of anal sphincter complex:
Invasion internal sphincter and possibly extends into intersphincteric space, not well delineated.
If present: Upper anal Canal.
4. EXTRAMURAL VASCULAR INVASION: No.
5. CIRCUMFERENTIAL RESECTION MARGIN (for T3 ONLY).
Shortest distance of tumor to mesorectal fascia: 8 mm at 10:00
Is there a separate tumor deposit, lymph node, or extramural vascular invasion threatening (>/=1 mm and </=2 mm) or invading (<1 mm) from the mesorectal fascia? There is likely an abnormal mesorectal fascia lymph node at the 9 to 10:00 position
which is within 1 mm of the adjacent mesorectal fascia, better seen on the recent CT exam.
6. LYMPH NODES:
Mesorectal/superior rectal lymph nodes and/or tumor deposits:
Superiormost suspicious lymph nodes/deposit is located: Not well delineated
Total number of regional lymph nodes: 5-6 (estimate)
Total number of suspicious for local regional lymph nodes: 3-4 (estimate)
Extra-mesorectal lymph nodes: There are enlarged bilateral obturator and inguinal lymph nodes, not well delineated.
7. INCIDENTAL FINDINGS: None.
IMPRESSION: Markedly limited exam due to patient discomfort with suboptimal (nearly nondiagnostic) image quality. The following is a best estimate of the extent of disease:
Stage: T 3b N 1b M1a
CRM: Likely threatened
Sphincter involvement: Yes
Suspicious extra mesorectal lymph nodes: Yes
Physical Exam
General: Awake, Alert, Oriented, AOx3, No Distress and Nontoxic
HEENT: EOMI and Anicteric
Respiratory: Clear, Normal Excursion and Nonlabored Respirations
Cardiac: S1/S2 and Regular Rate/Rhythm
Abdomen: Soft, Nontender and Other (colostomy)
Musculoskeletal: No Cyanosis and No Edema
Skin: No Rash
Neuro: Nonfocal/Grossly Intact
Psych: Mood/afflect pleasant, Insight/judgement good and Appropriate
Assessment/Plan
-
IMP:
New b/l ureteral obstruction Lt > Rt appears to be extrinsic compression of ureters from the soft tissue masses due to known Bulky abdominal adenopathy
APPLE
Rectal cancer with Poorly differentiated carcinoma involving colonic mucosa and submucosa
Bulky abdominal adenopathy/ Extensive metastatic retroperitoneal lymphadenopathy
Rectoanal pain - Cancer related pain
s/p Extended right colectomy and Loop sigmoid colostomy creation 08/22/23
Anemia - multifactorial (recent surgery, cancer)
Essential HTN
Plan:
unfortunate situation with met rectal ca recent surg now presents with rectal pain found bilat hydro with LN
APPLE-possibly obstructive but he also had contrastx2 (09/01, 09/03), can not r/o ALMAS , UA bland
cont IVF and s/p PCN tube placement
seem non oliguric, need to monitor UOP
BP stable with out hypotension
pain control
labs in am
Data Reviewed
-
Radiology: Report Reviewed by me
CT Scan: Report Reviewed by me
Labs: Labs Reviewed by me and Discussed with Patient
--- NOTE | 2023-09-06 15:34 | W.PN.UPDATE ---
Update Note
Progress Note Update
Bilateral 8Fr percutaneous nephrostomies placed. Very difficult procedure, as the patient was in severe pain and had great difficulty lying prone and remaining still for the procedure. Eventually was able to place bilateral catheters. Currently has
bloody output from both catheters, which should clear over the next few days.
--- NOTE | 2023-09-06 16:17 | CM ---
Not ready for discharge
IV Fluids , NPO Had kirill percutaneous nephrology tubes placed in UR dept..
Pt needing IV and po pain meds.
He was issues a walker this stay.
Spoke with Aishwarya templeton at [facility] after last dc [phone].She said they will restart [place].They do not have care port.
Will need port placement Saturday.
Daughter will drive him [place].
PLAN Home with [facility] fax dc summary [phone] or [phone]
[2023-09-06] MEDS: NSS IV (17:42)
[2023-09-06] MEDS: NEURONTIN PO (22:19)
[2023-09-06] MEDS: FLUSH (NSS) 2 FLUSH IV (22:35)
[2023-09-07] MEDS: DILAUDID 1 MG IV ×5 (03:56→20:36)
[2023-09-07 06:02] LABS: Hematocrit 26.3 % (39.0-52.0); Hemoglobin 8.3 g/dL (13.0-18.0); Mean Corp Hgb Conc. 31.6 g/dL (33.0-37.0); Mean Corpuscular Volume 72.9 fL (80.0-94.0); Mean Platelet Volume 10.4 fL (7.4-10.4); Platelet Count 287 10^3/uL (130-400); Red Blood Cell Count 3.61 10^6/uL (4.70-6.10); Red Cell Dist. Width 15.9 % (11.5-14.5)
[2023-09-07 06:17] LABS: Blood Urea Nitrogen 21 mg/dl (9-20); Calcium 8.8 mg/dl (8.4-10.2); Carbon Dioxide 19 mmol/L (22-30); Chloride 114 mmol/L (98-107); Estimated Creatinine Clearance 45 ml/min; Glucose 67 mg/dl (70-99); Potassium 4.6 mmol/L (3.5-5.1); Sodium 141 mmol/L (135-145); eGFR 36.04
[2023-09-07 07:00] VITALS: BP 135/90
--- NOTE | 2023-09-07 08:31 | W.PN.HOSP.TC ---
Today's Communication/Plan
-
see AP
Assessment / Plan
Assessment / Plan
HPI: 47 yo M DC'd on 08/27 s/p extended right colectomy and Loop sigmoid colostomy creation as of 08/22/23 for large bowel obstruction due to rectal mass p/w rectal pain and decreased p.o. intake.
POS liquid stools in his ostomy.
CT AP report reviewed:
mild b/l ureteral obstruction Lt > Rt b/l hydroureteronephrosis
interval Rt hemicolectomy , LLQ colostomy
mucous fistula
Obstructing rectal mass
extensive RP LAD
A/P:
# New b/l ureteral obstruction Lt > Rt
# b/l hydroureteronephrosis appears to be extrinsic compression of ureters from the soft tissue masses due to known Bulky abdominal adenopathy
# APPLE due to obstructive uropathy
SCr today at 2.2, from 2.6, was at 1.0 on admission
s/p BL perc nephrostomy tube placement by IR 09/05
UA neg for UTI
cont gentle IVF NSS at 60 cc/hr
Uro on board
Renal on board
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
# Bulky abdominal adenopathy/ Extensive metastatic retroperitoneal lymphadenopathy
# Rectoanal pain - Cancer related pain
s/p Extended right colectomy and Loop sigmoid colostomy creation 08/22/23
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
added IV Dilaudid Q3H PRN for severe breakthrough pain with plan to transition to oral Dilaudid at the time of discharge
added fentanyl patch 25 mg to control pain, next patch renewal date is Thursday 09/07
Onc on board, Outpt rad onc follow up
Staging imaging with CT chest noted Mod BL upper abdominal retrocrural and left para-aortic retroperitoneal lymphadenopathy consistent with metastatic disease, Stable.
MRI pelvis reviewed
Added Xanax PRN for anxiety
For chemoport placement anticipate next week by CRS vs IR.
# Anemia - multifactorial (recent surgery, cancer)
# Essential HTN
on Norvasc
DVT Px: LMWH
Code: full
Anticipated Discharge: 24 - 48 hours
Subjective/Interval History
-
Date of Service: September 07, 2023
Objective Data
-
Labs:
Laboratory Results
09/07/23
05:32
WBC 4.0 L
Hgb 8.3 L
Hct 26.3 L
Plt Count 287
Sodium 141
Potassium 4.6
Chloride 114 H
Carbon Dioxide 19 L
BUN 21 H
Creatinine 2.2 H
Glucose 67 L
Calcium 8.8
Vital Signs:
Vital Signs
Temp Pulse Resp BP Pulse Ox
36.7 C 96 18 135/90 100
09/07/23 07:00 09/07/23 07:00 09/07/23 07:00 09/07/23 07:00 09/07/23 07:00
I&O
09/06/23 09/07/23 09/08/23
06:59 06:59 06:59
Intake Total 1680 / 1680 250 / 250
Output Total 475 / 475 500 / 500 1750 / 1750
Balance 1205 / 1205 -250 / -250 -1750 / -1750
Review of Systems
-
All other systems: Reviewed and negative
Abdomen/GI: Reports Other (intermittent rectal pain)
Physical Exam
-
General: Well Developed, Well Nourished, No Apparent Distress, Comfortable and Conversant
HEENT: Normocephalic and Atraumatic
Respiratory: Clear to Auscultation and Non Labored Respirations; Negative Wheezes or Accessory Resp Muscle Use
Cardiac: Regular Rhythm and S1/S2
GI: Soft, Nontender and Ostomy
Genito-urinary: Other (BL nephrostomy tubes with draining urine )
Musculoskeletal: No Edema
Skin: Warm and Dry; Negative Rash
Neuro: Awake
Psych: Calm and Intact Judgement/Insight
Data Reviewed
-
Labs: Labs Reviewed by me
[2023-09-07] MEDS: NORVASC 5 MG PO (09:03)
[2023-09-07] MEDS: HEPARIN 5000 UNITS SC ×2 (09:03→20:31)
[2023-09-07] MEDS: NSS 1000 IV (09:52)
--- NOTE | 2023-09-07 11:36 | W.PN.UPDATE ---
Update Note
Progress Note Update
Bilateral nephrostomy tubes draining peach colored urine
Patient comfortable: left flank pain has resolved
Creatinine 2.2
--- NOTE | 2023-09-07 12:03 | W.PN.ONC2 ---
Today's Communication / Plan
-
- adjusted oral pain regimen with possible anticipated discharge in next 72 hours after procedures saturday.
Impression
Impression
Locally advanced rectal cancer, metastatic to retroperitoneal lymph nodes, pMMR
s/p extended right colectomy and Loop sigmoid colostomy creation 08/22/23
Rectoanal pain
Microcytic anemia, normal iron stores
Acute kidney injury, Creat rising
Bilateral ureteral obstruction with hydroureteronephrosis
Plan
Plan
Pain mgmt with IV dilaudid + fentanyl patch. I reviewed need to transition to PO pain regimen that is adequate prior to discharge to avoid re-admit. oxycodone insufficient. Switched to PO dilaudid 4 mg every 4 hours prn and requested to try this
before asking for IV dilaudid. adjust based on response. May need to increase fentanyl patch dose.
team has reviewed treatment of rectal cancer, to include systemic chemotherapy, with consideration for radiation for palliation of pain. evaluated by XRT with plan to start 09/[address] port on 09/08.
Will arrange outpatient PET to assess extent of disease
pathology to check KRAS, BRAF, NRAS, etc on biopsy specimen
Will arranged med onc f/u in next week or so to make plans to start treatment
Subjective/Objective
Chief Complaint
rectal adenocarcinoma
Subjective
s/p bilateral PCN placement on 09/05. Cr today slightly better at 2.2. Pt continues to have pain predominately in his rectum despite fentanyl patch. He is not getting relief with po oxycodone and requiring IV dilaudid every 3-6 hours. Denies fevers,
chills, abdominal pain.
Vital Signs:
Vital Signs
Temp Pulse Resp BP Pulse Ox
98.1 F 80 18 122/80 100
09/07/23 07:00 09/07/23 09:03 09/07/23 07:00 09/07/23 09:03 09/07/23 07:00
Lab Results:
Laboratory Data
WBC 4.0 10^3/uL (4.8-10.8) L 09/07/23 05:32
Hgb 8.3 g/dL (13.0-18.0) L 09/07/23 05:32
Plt Count 287 10^3/uL (130-400) 09/07/23 05:32
eGFR 36.04 09/07/23 05:32
Physical Exam
HEENT: No Jaundice
Cardiology: Normal Sinus Rhythm
Pulmonary: Clear
GI: Soft and Other (ostomy site without erythema, light brown stool )
Extremities: No Edema
Neuro: Non Focal
Review of Systems
Review of Systems
Constitutional: Denies Fever
Respiratory: Denies Cough
Gastrointestinal: Reports Other (rectal pain); Denies Nausea/Vomiting
Orders
Orders
Orders From Last 24 Hours
09/07/23 12:01
HYDROmorphone [Dilaudid] 4 mg PO Q4HPRN PRN
[2023-09-07] MEDS: DILAUDID 4 MG PO ×3 (12:49→23:07)
[2023-09-07 15:00] VITALS: BP 131/74
--- NOTE | 2023-09-07 17:22 | W.PN.NEPH.PH ---
Today's Communication / Plan
-
IVF, follow labs
Assessment/Plan
-
IMP:
New b/l ureteral obstruction Lt > Rt appears to be extrinsic compression of ureters from the soft tissue masses due to known Bulky abdominal adenopathy
APPLE
Rectal cancer with Poorly differentiated carcinoma involving colonic mucosa and submucosa
Bulky abdominal adenopathy/ Extensive metastatic retroperitoneal lymphadenopathy
Rectoanal pain - Cancer related pain
s/p Extended right colectomy and Loop sigmoid colostomy creation 08/22/23
Anemia - multifactorial (recent surgery, cancer)
Essential HTN
Plan:
pt with met rectal ca recent surg now presents with rectal pain found bilat hydro with LN
APPLE-possibly obstructive but he also had contrastx2 (09/01, 09/03), can not r/o ALMAS , UA bland
cont IVF and s/p PCN tube placement , cr better today 2.2 and non oliguric
BP stable with out hypotension
monitor met acidosis, if worsens may need bicarb IVF
pain control
labs in am
-
-
Date of Service: September 07, 2023
CC / HPI / ROS
-
Chief Complaint:
APPLE
History of Present Illness:
cr better at 2.2
non oliguric with bilat pCNs
no fever
BP stable
Review of Systems:
no cp or sob
pain fair control
Labs
-
Labs:
WBC 4.0 10^3/uL (4.8-10.8) L 09/07/23 05:32
RBC 3.61 10^6/uL (4.70-6.10) L 09/07/23 05:32
Hgb 8.3 g/dL (13.0-18.0) L 09/07/23 05:32
Hct 26.3 % (39.0-52.0) L 09/07/23 05:32
Plt Count 287 10^3/uL (130-400) 09/07/23 05:32
Sodium 141 mmol/L (135-145) 09/07/23 05:32
Potassium 4.6 mmol/L (3.5-5.1) 09/07/23 05:32
Chloride 114 mmol/L (98-107) H 09/07/23 05:32
Carbon Dioxide 19 mmol/L (22-30) L 09/07/23 05:32
BUN 21 mg/dl (9-20) H 09/07/23 05:32
Creatinine 2.2 mg/dL (0.7-1.3) H 09/07/23 05:32
eGFR 36.04 09/07/23 05:32
Glucose 67 mg/dl (70-99) L 09/07/23 05:32
Calcium 8.8 mg/dl (8.4-10.2) 09/07/23 05:32
Albumin 3.3 g/dl (3.5-5.0) L 09/04/23 05:16
Physical Exam
-
Vital Signs:
Vital Signs
Temp Pulse Resp BP Pulse Ox
98.1 F 85 17 131/74 98
09/07/23 15:00 09/07/23 15:00 09/07/23 15:00 09/07/23 15:00 09/07/23 15:00
Cardiovascular:: Regular rate and rhythm
Respiratory:: Bilateral: CTA
Lung Excursion:: Normal
Abdomen:: Nontender and Soft
Extremity Edema:: None: Bilateral:
Cordero Catheter: No
[2023-09-07] MEDS: NEURONTIN PO (21:09)
[2023-09-07 23:00] VITALS: BP 135/80
[2023-09-08] MEDS: DILAUDID 1 MG IV ×5 (01:08→21:16)
[2023-09-08] MEDS: NSS 1000 IV ×2 (01:13→17:39)
[2023-09-08] MEDS: DILAUDID 4 MG PO ×3 (04:30→17:45)
[2023-09-08 06:15] LABS: Hematocrit 26.2 % (39.0-52.0); Hemoglobin 8.3 g/dL (13.0-18.0); Mean Corp Hgb Conc. 31.7 g/dL (33.0-37.0); Mean Corpuscular Volume 72.6 fL (80.0-94.0); Mean Platelet Volume 10.2 fL (7.4-10.4); Platelet Count 279 10^3/uL (130-400); Red Blood Cell Count 3.61 10^6/uL (4.70-6.10); Red Cell Dist. Width 15.7 % (11.5-14.5); White Blood Cell Count 2.8 10^3/uL (4.8-10.8)
[2023-09-08 06:57] LABS: Blood Urea Nitrogen 15 mg/dl (9-20); Calcium 9.1 mg/dl (8.4-10.2); Carbon Dioxide 21 mmol/L (22-30); Chloride 108 mmol/L (98-107); Estimated Creatinine Clearance 83 ml/min; Glucose 72 mg/dl (70-99); Potassium 4.3 mmol/L (3.5-5.1); Sodium 139 mmol/L (135-145); eGFR > 60.00
[2023-09-08 07:00] VITALS: BP 119/71
[2023-09-08] MEDS: HEPARIN 5000 UNITS SC ×2 (08:32→20:19)
[2023-09-08] MEDS: NORVASC 5 MG PO (08:33)
--- NOTE | 2023-09-08 08:51 | W.PN.HOSP.TC ---
Addendum entered and electronically signed by Sherley Hunter MD 09/08/23 14:40:
Per RN, patient is noticing increasing swelling in the right thigh, check lower extremity ultrasound for DVT
Original Note:
Today's Communication/Plan
-
see A/P
Assessment / Plan
Assessment / Plan
HPI: 47 yo M DC'd on 08/27 s/p extended right colectomy and Loop sigmoid colostomy creation as of 08/22/23 for large bowel obstruction due to rectal mass p/w rectal pain and decreased p.o. intake.
POS liquid stools in his ostomy.
CT AP report reviewed:
mild b/l ureteral obstruction Lt > Rt b/l hydroureteronephrosis
interval Rt hemicolectomy , LLQ colostomy
mucous fistula
Obstructing rectal mass
extensive RP LAD
A/P:
# New b/l ureteral obstruction Lt > Rt
# b/l hydroureteronephrosis appears to be extrinsic compression of ureters from the soft tissue masses due to known Bulky abdominal adenopathy
# APPLE due to obstructive uropathy
SCr today at 1.2, peaked at 2.6, was at 1.0 on admission
s/p BL perc nephrostomy tube placement by IR 4/5 which relived obstruction and is draining urine
UA neg for UTI
cont gentle IVF NSS at 60 cc/hr
Uro on board
Renal on board
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
# Bulky abdominal adenopathy/ Extensive metastatic retroperitoneal lymphadenopathy
# Rectoanal pain - Cancer related pain
s/p Extended right colectomy and Loop sigmoid colostomy creation 08/22/23
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
Added IV Dilaudid 1 mg Q3H PRN for severe breakthrough pain, Added PO Dilaudid 4 mg Q4H PRN for unrelieved pain
Added fentanyl patch 25 mg to control pain
Onc on board, Outpt rad onc follow up
Staging imaging with CT chest noted Mod BL upper abdominal retrocrural and left para-aortic retroperitoneal lymphadenopathy consistent with metastatic disease, Stable.
MRI pelvis reviewed
Added Xanax PRN for anxiety
For chemoport placement anticipate next week by CRS vs IR.
# Anemia - multifactorial (recent surgery, cancer)
# Essential HTN
on Norvasc
DVT Px: LMWH
Code: full
Anticipated Discharge: 24 - 48 hours
Subjective/Interval History
-
Date of Service: September 08, 2023
Objective Data
-
Labs:
Laboratory Results
09/08/23
05:55
WBC 2.8 L
Hgb 8.3 L
Hct 26.2 L
Plt Count 279
Sodium 139
Potassium 4.3
Chloride 108 H
Carbon Dioxide 21 L
BUN 15
Creatinine 1.2
Glucose 72
Calcium 9.1
Vital Signs:
Vital Signs
Temp Pulse Resp BP Pulse Ox
36.9 C 77 18 119/71 98
09/08/23 07:00 09/08/23 07:00 09/08/23 07:00 09/08/23 07:00 09/08/23 07:00
I&O
09/07/23 09/08/23 09/09/23
06:59 06:59 06:59
Intake Total 250 / 250 2120 / 2120 1200 / 1200
Output Total 500 / 500 3025 / 3025 1100 / 1100
Balance -250 / -250 -905 / -905 100 / 100
Review of Systems
-
All other systems: Reviewed and negative
Abdomen/GI: Reports Other (intermittent rectal pain)
Physical Exam
-
General: Well Developed, Well Nourished, No Apparent Distress, Comfortable and Conversant
HEENT: Normocephalic and Atraumatic
Respiratory: Clear to Auscultation and Non Labored Respirations; Negative Wheezes or Accessory Resp Muscle Use
Cardiac: Regular Rhythm and S1/S2
GI: Soft, Nontender and Ostomy
Genito-urinary: Other (BL nephrostomy tubes with draining urine )
Musculoskeletal: No Edema
Skin: Warm and Dry; Negative Rash
Neuro: Awake
Psych: Calm and Intact Judgement/Insight
Data Reviewed
-
Labs: Labs Reviewed by me
--- NOTE | 2023-09-08 11:26 | W.PN.ONC2 ---
Today's Communication / Plan
-
- increased fentanyl dose to 37.5 mcg, encouraged PO dilaudid use and reserving IV use for intractable breakthrough pain.
Impression
Impression
Locally advanced rectal cancer, metastatic to retroperitoneal lymph nodes, pMMR
s/p extended right colectomy and Loop sigmoid colostomy creation 08/22/23
Rectoanal pain
Microcytic anemia, normal iron stores
Acute kidney injury, Creat rising
Bilateral ureteral obstruction with hydroureteronephrosis
Plan
Plan
Pain mgmt with PO and IV dilaudid + fentanyl patch. I reviewed need to transition to PO pain regimen that is adequate prior to discharge to avoid re-admit. oxycodone insufficient. Switched 09/06 to PO dilaudid 4 mg every 4 hours prn and requested to
try this before asking for IV dilaudid. He still has received IV dilaudid every 4-6 hours. Increased fentanyl patch to 37.5 mcg q72 hrs. consider role for anti-spasmotic as rectal spasms are common cause for pain in this setting.
team has reviewed treatment of rectal cancer, to include systemic chemotherapy, with consideration for radiation for palliation of pain. evaluated by XRT with plan to start 09/[address] port on 09/08.
Will arrange outpatient PET to assess extent of disease
pathology to check KRAS, BRAF, NRAS, etc on biopsy specimen
Will arranged med onc f/u in next week or so to make plans to start treatment
Subjective/Objective
Chief Complaint
met rectal cancer
Subjective
pt still requiring 1 mg IV dilaudid on top of 4 mg PO diluadid every 4 hours due to rectal pain. Denies fevers. cell count stable.
Vital Signs:
Vital Signs
Temp Pulse Resp BP Pulse Ox
98.4 F 77 18 119/71 98
09/08/23 07:00 09/08/23 07:00 09/08/23 07:00 09/08/23 07:00 09/08/23 07:00
Lab Results:
Laboratory Data
WBC 2.8 10^3/uL (4.8-10.8) L 09/08/23 05:55
Hgb 8.3 g/dL (13.0-18.0) L 09/08/23 05:55
Plt Count 279 10^3/uL (130-400) 09/08/23 05:55
eGFR > 60.00 09/08/23 05:55
Physical Exam
HEENT: No Jaundice
GI: Flat and Other (ostomy site nonerythematous ); No Distended
Extremities: No Edema
Neuro: Non Focal
Review of Systems
Review of Systems
Constitutional: Denies Fever
Gastrointestinal: Reports Other (rectal pain)
Neurological: Denies Headache
Orders
Orders
Orders From Last 24 Hours
09/07/23 12:01
HYDROmorphone [Dilaudid] 4 mg PO Q4HPRN PRN
09/07/23 12:22
HYDROmorphone [Dilaudid] 4 mg PO Q4HPRN PRN
09/08/23 10:06
Fentanyl Patch Confirmation BID@[id number]
09/08/23 12:00
FentaNYL 12 MCG/HR PATCH [Duragesic 12 Mcg/Hr Patch] 1 patch TRANSDERM Q72H
09/11/23 12:00
REMOVE fentaNYL PATCH [Remove Duragesic Patch] See Dose Instructions REMOVE Q72H
--- NOTE | 2023-09-08 11:49 | W.PN.UPDATE ---
Update Note
Progress Note Update
Bilateral nephrostomy tubes draining clear urine
Creatinine 1.2
No renal colic
---
Will sign off
[2023-09-08] MEDS: DURAGESIC 12 MCG/HR PATCH 1 PATCH TRANSDERM (12:02)
[2023-09-08] MEDS: DURAGESIC 25 MCG/HR PATCH 1 PATCH TRANSDERM (12:02)
--- NOTE | 2023-09-08 13:51 | W.PN.NEPH.PH ---
Today's Communication / Plan
-
wean off IVF
Assessment/Plan
-
IMP:
New b/l ureteral obstruction Lt > Rt appears to be extrinsic compression of ureters from the soft tissue masses due to known Bulky abdominal adenopathy
APPLE
Rectal cancer with Poorly differentiated carcinoma involving colonic mucosa and submucosa
Bulky abdominal adenopathy/ Extensive metastatic retroperitoneal lymphadenopathy
Rectoanal pain - Cancer related pain
s/p Extended right colectomy and Loop sigmoid colostomy creation 08/22/23
Anemia - multifactorial (recent surgery, cancer)
Essential HTN
Plan:
pt with met rectal ca recent surg now presents with rectal pain found bilat hydro with LN
APPLE-possibly obstructive but he also had contrastx2 (09/01, 09/03), can not r/o ALMAS , UA bland
cr is improving to 1.2 and non oliguric
BP stable with out hypotension
d/c IVF when po intake is better
monitor met acidosis
pain control
labs in am
will s/o, call with ?s
-
-
Date of Service: September 08, 2023
CC / HPI / ROS
-
Chief Complaint:
APPLE
History of Present Illness:
cr better at 1.2
non oliguric with bilat pCNs
no fever
BP stable
Review of Systems:
no cp or sob
pain fair control
Labs
-
Labs:
WBC 2.8 10^3/uL (4.8-10.8) L 09/08/23 05:55
RBC 3.61 10^6/uL (4.70-6.10) L 09/08/23 05:55
Hgb 8.3 g/dL (13.0-18.0) L 09/08/23 05:55
Hct 26.2 % (39.0-52.0) L 09/08/23 05:55
Plt Count 279 10^3/uL (130-400) 09/08/23 05:55
Sodium 139 mmol/L (135-145) 09/08/23 05:55
Potassium 4.3 mmol/L (3.5-5.1) 09/08/23 05:55
Chloride 108 mmol/L (98-107) H 09/08/23 05:55
Carbon Dioxide 21 mmol/L (22-30) L 09/08/23 05:55
BUN 15 mg/dl (9-20) 09/08/23 05:55
Creatinine 1.2 mg/dL (0.7-1.3) 09/08/23 05:55
eGFR > 60.00 09/08/23 05:55
Glucose 72 mg/dl (70-99) 09/08/23 05:55
Calcium 9.1 mg/dl (8.4-10.2) 09/08/23 05:55
Albumin 3.3 g/dl (3.5-5.0) L 09/04/23 05:16
Physical Exam
-
Vital Signs:
Vital Signs
Temp Pulse Resp BP Pulse Ox
98.4 F 77 18 119/71 98
09/08/23 07:00 09/08/23 07:00 09/08/23 07:00 09/08/23 07:00 09/08/23 07:00
Cardiovascular:: Regular rate and rhythm
Respiratory:: Bilateral: CTA
Lung Excursion:: Normal
Abdomen:: Nontender and Soft
Extremity Edema:: None: Bilateral:
Cordero Catheter: No
[2023-09-08 15:00] VITALS: BP 116/78
[2023-09-08] MEDS: NEURONTIN PO (21:12)
[2023-09-08 23:44] VITALS: BP 131/88
[2023-09-09] MEDS: DILAUDID 4 MG PO ×3 (00:44→11:02)
[2023-09-09] MEDS: DILAUDID 1 MG IV ×2 (01:52→08:39)
--- NOTE | 2023-09-09 07:34 | W.PN.HOSP.TC ---
Addendum entered and electronically signed by Marciano Glynn MD 09/09/23 15:43:
Will consider HIV testing -- will discuss with patient.
Original Note:
Today's Communication/Plan
-
Please see below
Patient does not need to be NPO
Assessment / Plan
Assessment / Plan
Physical Exam
General: Well Developed, Well Nourished, No Apparent Distress, Comfortable and Conversant
HEENT: Normocephalic and Atraumatic
Respiratory: Clear to Auscultation and Non Labored Respirations; Negative Wheezes or Accessory Resp Muscle Use
Cardiac: Regular Rhythm and S1/S2
GI: Soft, Nontender and Ostomy
Genito-urinary: Other (BL nephrostomy tubes with draining urine )
Musculoskeletal: No Edema
Skin: Warm and Dry; Negative Rash
Neuro: Awake
Psych: Calm and Intact Judgement/Insight

HPI: 47 yo M DC'd on 08/27 s/p extended right colectomy and Loop sigmoid colostomy creation as of 08/22/23 for large bowel obstruction due to rectal mass p/w rectal pain and decreased p.o. intake.
POS liquid stools in his ostomy.
CT AP report reviewed:
mild b/l ureteral obstruction Lt > Rt b/l hydroureteronephrosis
interval Rt hemicolectomy , LLQ colostomy
mucous fistula
Obstructing rectal mass
extensive RP LAD
Assessment/Plan
# New b/l ureteral obstruction Lt > Rt
# b/l hydroureteronephrosis appears to be extrinsic compression of ureters from the soft tissue masses due to known Bulky abdominal adenopathy
# APPLE secondary to obstructive uropathy (due to extrinsic compression of lymphadenopathy) status post bilateral percutaneous tube placement
SCr peaked at 2.6, was at 1.0 on admission, now back down to 1.0
s/p bilateral percutaneous nephrostomy tube placement by IR 09/05 which relived obstruction and is draining urine
UA neg for UTI
Wean off gentle IVF NSS at 60 cc/hr
Uro on board
Renal on board
#Increasing swelling in the right thigh
-Possibly from patient's malignancy and associated lymphedema
-Lower extremity ultrasound negative for DVT
-Check x-ray of right femur
-Might consider ortho consult and/or MRI of the right thigh and pelvis
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
# Bulky abdominal adenopathy/ Extensive metastatic retroperitoneal lymphadenopathy
# Rectoanal pain - Cancer related pain
s/p Extended right colectomy and Loop sigmoid colostomy creation 08/22/23
Pain control with [employer] Oxycodone, Gabapentin
Continue IV Dilaudid 1 mg Q3H PRN for severe breakthrough pain
PO Dilaudid increased from 4 mg Q4H PRN to 6 mg Q4H PRN for unrelieved pain
Fentanyl patch 25 mg increased to 50 mg to better control pain
Onc on board, Outpt rad onc follow up
Staging imaging with CT chest noted Mod BL upper abdominal retrocrural and left para-aortic retroperitoneal lymphadenopathy consistent with metastatic disease, Stable.
MRI pelvis reviewed
Continue Xanax PRN for anxiety
For chemoport placement anticipate this week by CR[facility] vs IR. -- DOES NOT NEED TO BE NPO
# Anemia - multifactorial (recent surgery, cancer)
# Essential HTN
on Norvasc
DVT PPx: Lovenox -- if renal function becomes worse, will switch back to Heparin subq
Code: full
Anticipated Discharge: > 48 hours
Subjective/Interval History
-
Date of Service: September 09, 2023
Patient was seen and examined. He reported significant pain in the morning.
Objective Data
-
Labs:
Laboratory Results
09/09/23
06:00
WBC Pending
Hgb Pending
Hct Pending
Plt Count Pending
Sodium Pending
Potassium Pending
Chloride Pending
Carbon Dioxide Pending
BUN Pending
Creatinine Pending
Glucose Pending
Calcium Pending
Vital Signs:
Vital Signs
Temp Pulse Resp BP Pulse Ox
98.5 F 88 20 131/88 98
09/08/23 23:44 09/08/23 23:44 09/08/23 23:44 09/08/23 23:44 09/08/23 23:44
I&O
09/08/23 09/09/23 09/10/23
06:59 06:59 06:59
Intake Total 2120 / 2120 3760 / 3760
Output Total 3025 / 3025 2700 / 2700
Balance -905 / -905 1060 / 1060
[2023-09-09 07:56] VITALS: BP 127/86
[2023-09-09 08:21] LABS: Hemoglobin 8.6 g/dL (13.0-18.0); Mean Corp Hgb Conc. 31.9 g/dL (33.0-37.0); Mean Corpuscular Hgb 23.1 pg (27.0-31.0); Mean Corpuscular Volume 72.4 fL (80.0-94.0); Mean Platelet Volume 10.8 fL (7.4-10.4); Platelet Count 273 10^3/uL (130-400); Red Blood Cell Count 3.73 10^6/uL (4.70-6.10); Red Cell Dist. Width 15.6 % (11.5-14.5); White Blood Cell Count 2.5 10^3/uL (4.8-10.8)
[2023-09-09] MEDS: NORVASC 5 MG PO (08:38)
[2023-09-09] MEDS: HEPARIN 5000 UNITS SC (08:38)
[2023-09-09 08:41] LABS: Blood Urea Nitrogen 10 mg/dl (9-20); Calcium 9.1 mg/dl (8.4-10.2); Carbon Dioxide 25 mmol/L (22-30); Chloride 106 mmol/L (98-107); Estimated Creatinine Clearance 100 ml/min; Glucose 85 mg/dl (70-99); Sodium 139 mmol/L (135-145); eGFR > 60.00
--- NOTE | 2023-09-09 09:35 | W.PN.ONC ---
Today's Communication / Plan
-
port placement
Impression
Impression
Locally advanced rectal cancer, metastatic to retroperitoneal lymph nodes, pMMR
s/p extended right colectomy and Loop sigmoid colostomy creation 08/22/23
Rectoanal pain
Microcytic anemia, normal iron stores
Acute kidney injury, Creat rising
Bilateral ureteral obstruction with hydroureteronephrosis
Subjective/Objective
Subjective/Objective
Vital Signs:
Vital Signs
Temp Pulse Resp BP Pulse Ox
98.2 F 84 16 127/86 98
09/09/23 07:56 09/09/23 07:56 09/09/23 07:56 09/09/23 07:56 09/09/23 07:56
Lab Results:
Laboratory Data
WBC 2.5 10^3/uL (4.8-10.8) L 09/09/23 07:59
Hgb 8.6 g/dL (13.0-18.0) L 09/09/23 07:59
Plt Count 273 10^3/uL (130-400) 09/09/23 07:59
eGFR > 60.00 09/09/23 07:59
[2023-09-09] MEDS: NSS 1000 IV (10:57)
--- NOTE | 2023-09-09 11:55 | W.PN.ONC ---
Today's Communication / Plan
-
Pain control still not adequate. Will increase Duragesic to 50, although I suspect 75 would be a more appropriate dose. Will increase oral hydromorphone to 6 mg. Await port placement. Radiation therapy to start as an outpatient.
Impression
Impression
Locally advanced rectal cancer, metastatic to retroperitoneal lymph nodes, pMMR
s/p extended right colectomy and Loop sigmoid colostomy creation 08/22/23
Rectoanal pain
Microcytic anemia, normal iron stores
Acute kidney injury, Creat rising
Bilateral ureteral obstruction with hydroureteronephrosis
Plan
Plan
Pain mgmt with PO and IV dilaudid + fentanyl patch. I reviewed need to transition to PO pain regimen that is adequate prior to discharge to avoid re-admit. oxycodone insufficient. Switched 09/06 to PO dilaudid 4 mg every 4 hours prn and requested to
try this before asking for IV dilaudid. He still has received IV dilaudid every 4-6 hours. Increased fentanyl patch to 37.5 mcg q72 hrs. consider role for anti-spasmotic as rectal spasms are common cause for pain in this setting.
team has reviewed treatment of rectal cancer, to include systemic chemotherapy, with consideration for radiation for palliation of pain. evaluated by XRT with plan to start 09/[address] port on 09/08.
Will arrange outpatient PET to assess extent of disease
pathology to check KRAS, BRAF, NRAS, etc on biopsy specimen
Will arranged med onc f/u in next week or so to make plans to start treatment
Subjective/Objective
Subjective/Objective
He is still having a fair amount of rectal pain. The 4 mg of oral Dilaudid does not seem to help him much, although he says that 1 mg of IV Dilaudid does, which does not make a whole lot of sense as 1 mg of IV should be equivalent to 2 mg of oral.
He is otherwise feeling well. Physical examination is unchanged.
Vital Signs:
Vital Signs
Temp Pulse Resp BP Pulse Ox
98.2 F 84 16 127/86 98
09/09/23 07:56 09/09/23 07:56 09/09/23 07:56 09/09/23 07:56 09/09/23 07:56
Lab Results:
Laboratory Data
WBC 2.5 10^3/uL (4.8-10.8) L 09/09/23 07:59
Hgb 8.6 g/dL (13.0-18.0) L 09/09/23 07:59
Plt Count 273 10^3/uL (130-400) 09/09/23 07:59
eGFR > 60.00 09/09/23 07:59
Orders
Orders
Orders From Last 24 Hours
09/09/23 11:53
Fentanyl Patch Confirmation BID@[id number]
09/09/23 11:54
HYDROmorphone [Dilaudid] 6 mg PO Q4HPRN PRN
09/09/23 12:00
FentaNYL 50 MCG/HR PATCH [Duragesic 50 Mcg/Hr Patch] 1 patch TRANSDERM Q72H
REMOVE fentaNYL PATCH [Remove Duragesic Patch] See Dose Instructions REMOVE Q72H
[2023-09-09] MEDS: DURAGESIC 50 MCG/HR PATCH 1 PATCH TRANSDERM (13:18)
[2023-09-09] MEDS: DILAUDID 6 MG PO ×2 (14:26→21:18)
[2023-09-09] MEDS: NUPERCAINAL 1% OINTMENT 1 APPLIC TOPICAL (14:39)
[2023-09-09 15:24] VITALS: BP 139/98
--- NOTE | 2023-09-09 17:40 | CM ---
Not ready for discharge
Pt requires IV and po pain meds.
Pt using walker
Spoke with Aishwarya templeton at [facility] after last dc [phone].She said they will restart at [place].They do not have care port.
[place]
PLAN Home with [facility] fax dc summary [phone] or [phone]
[2023-09-09] MEDS: LOVENOX 40 MG SC (17:52)
[2023-09-09] MEDS: NEURONTIN PO (21:16)
[2023-09-09 23:32] VITALS: BP 145/95
[2023-09-10 06:09] LABS: Hematocrit 26.8 % (39.0-52.0); Hemoglobin 8.7 g/dL (13.0-18.0); Mean Corp Hgb Conc. 32.5 g/dL (33.0-37.0); Mean Corpuscular Hgb 22.8 pg (27.0-31.0); Mean Corpuscular Volume 70.2 fL (80.0-94.0); Mean Platelet Volume 9.5 fL (7.4-10.4); Platelet Count 253 10^3/uL (130-400); Red Blood Cell Count 3.82 10^6/uL (4.70-6.10); Red Cell Dist. Width 15.9 % (11.5-14.5); White Blood Cell Count 2.9 10^3/uL (4.8-10.8)
[2023-09-10 06:35] LABS: Blood Urea Nitrogen 8 mg/dl (9-20); Carbon Dioxide 25 mmol/L (22-30); Chloride 104 mmol/L (98-107); Estimated Creatinine Clearance 111 ml/min; Glucose 80 mg/dl (70-99); Potassium 4.1 mmol/L (3.5-5.1); Sodium 138 mmol/L (135-145); eGFR > 60.00
[2023-09-10 07:00] VITALS: BP 155/100
[2023-09-10] MEDS: DILAUDID 6 MG PO ×3 (08:03→18:44)
[2023-09-10] MEDS: NORVASC 5 MG PO (08:03)
--- NOTE | 2023-09-10 10:17 | W.PN.HOSP.TC ---
Addendum entered and electronically signed by Marciano Glynn MD 09/10/23 12:39:
Update
Spoke with Interventional Radiology, Hematology, Dr. Nadir London ([facility]), Dr. Tricia Deleon ([facility]) -- and the plan now is for patient to get port placement by IR tomorrow or . IR will ask anesthesia to
sedate as patient requesting general anesthesia -- but the procedure does not require general anesthesia -- IR will ask anesthesia to sedate and procedure will be done on 09/09 or 09/10 depending on anesthesia's schedule.
Original Note:
Today's Communication/Plan
-
Asking IR about possible port placement today/tomorrow -- so that patient can be discharged
Pain is controlled
Oncology will e-prescribe patient's pain medications
APPLE has resolved
As per urology nothing to do from urology standpoint for scrotum given patient's current state and planned oncologic treatment for met rectal ca, no indication to do anything surgical
Assessment / Plan
Assessment / Plan
Physical Exam
General: Not in acute distress
HEENT: Normocephalic
Respiratory: Clear to Auscultation Bilaterally
Cardiac: Regular Rhythm and S1/S2
GI: Positive bowel sounds. Soft, Nontender and Ostomy
Genito-urinary: Other (Bilateral nephrostomy tubes with draining urine ). Scrotum with mild swelling but without erythema or tenderness.
Musculoskeletal: No Edema
Skin: Warm and Dry
Neuro: AAOx3
Psych: Calm and Intact Judgement/Insight

#CT Abdomen Pelvis (as per the radiologist's report)
IMPRESSION:
1. Mild bilateral hydronephrosis and mild proximal hydroureter, new compared to prior CT. Findings are likely related to ureteral narrowing/obstruction by large confluent retroperitoneal lymphadenopathy.
2. Extensive inguinal, pelvic, and retroperitoneal lymphadenopathy, likely malignant.
3. Status post left-sided colostomy with mucous fistula. Continued severe wall thickening of the rectum and distal sigmoid colon, likely related to the patient's known malignancy. No evidence of intestinal obstruction.
4. Small amount of abdominal free fluid adjacent to the liver and spleen, which may be postoperative or reactive. No intra-abdominal abscess formation appreciated.
#CT Chest (as per the radiologist's report)
IMPRESSION:
Moderate bilateral upper abdominal retrocrural and left para-aortic retroperitoneal lymphadenopathy consistent with metastatic disease
#MRI Pelvis (as per the radiologist's report)
IMPRESSION: Markedly limited exam due to patient discomfort with suboptimal (nearly nondiagnostic) image quality. The following is a best estimate of the extent of disease:
Stage: T 3b N 1b M1a
CRM: Likely threatened
Sphincter involvement: Yes
Suspicious extra mesorectal lymph nodes: Yes
#Ultrasound Peripheral Venous Lower Extremity Bilaterally
IMPRESSION:
1. No evidence of DVT from the common femoral through the upper calf veins on either side.
2. Bilateral inguinal lymphadenopathy, likely related to the patient's known malignancy. Inguinal lymphadenopathy was also seen on prior CT dated 09/02/2023.
#Right Femur X-ray
IMPRESSION: Minimal right hip osteoporosis. Stable
#Ultrasound Scrotum
IMPRESSION: Moderate complex left hydrocele.
Small complex right hydrocele

Assessment/Plan
# Bilateral ureteral obstruction and hydronephrosis status post successful placement of bilateral 8.5 [place] percutaneous nephrostomy catheters.
# Bilateral hydroureteronephrosis appears to be extrinsic compression of ureters from the soft tissue masses due to known Bulky abdominal adenopathy
# Acute Kidney Injury - RESOLVED - secondary to obstructive uropathy (due to extrinsic compression of lymphadenopathy) status post bilateral percutaneous tube placement
SCr peaked at 2.6, was at 1.0 on admission, now back down to 0.9
s/p bilateral percutaneous nephrostomy tube placement by IR 4/ which relieved obstruction and is draining urine
UA neg for UTI
Weaned off IV fluids
Uro on board
Renal on board
#Increasing swelling in the right thigh - possibly from patient's malignancy and associated lymphedema
-Possibly from patient's malignancy and associated lymphedema
-Lower extremity ultrasound negative for DVT
-X-ray of right femur results are above
-Might consider ortho consult and/or MRI of the right thigh and pelvis
#Scrotal Swelling and Pain
-Ultrasound planned as above
-As per urology nothing to do from urology standpoint for scrotum given patient's current state and planned oncologic treatment for met rectal ca, no indication to do anything surgical
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
# Bulky abdominal adenopathy/ Extensive metastatic retroperitoneal lymphadenopathy
# Rectoanal pain - Cancer related pain
s/p Extended right colectomy and Loop sigmoid colostomy creation 08/22/23
Pain control with Gabapentin, and also:
Continue IV Dilaudid 1 mg Q3H PRN for severe breakthrough pain
PO Dilaudid increased from 4 mg Q4H PRN to 6 mg Q4H PRN for unrelieved pain
Fentanyl patch 25 mg increased to 50 mg to better control pain
Onc on board, Outpt rad onc follow up
Staging imaging with CT chest noted Mod BL upper abdominal retrocrural and left para-aortic retroperitoneal lymphadenopathy consistent with metastatic disease, Stable.
MRI pelvis reviewed
Continue Xanax PRN for anxiety
For chemoport placement anticipated on September 10, 2023 or September 11, 2023
# Anemia - multifactorial (recent surgery, cancer)
# Essential hypertension
on Norvasc
DVT PPx: Lovenox -- if renal function becomes worse, will switch back to Heparin subq
Code: full
Anticipated Discharge: Within 24 hours
Subjective/Interval History
-
Date of Service: September 10, 2023
Patient was seen and examined. He reported that his pain has improved with the increases in his pain medications yesterday. He denied any scrotum issues today, no scrotal pain and his right leg is okay per him.
Objective Data
-
Labs:
Laboratory Results
09/10/23
06:03
WBC 2.9 L
Hgb 8.7 L
Hct 26.8 L
Plt Count 253
Sodium 138
Potassium 4.1
Chloride 104
Carbon Dioxide 25
BUN 8 L
Creatinine 0.9
Glucose 80
Calcium 9.0
Vital Signs:
Vital Signs
Temp Pulse Resp BP Pulse Ox
98.1 F 80 18 155/100 99
09/10/23 07:00 09/10/23 07:00 09/10/23 07:00 09/10/23 08:03 09/10/23 07:00
I&O
09/09/23 09/10/23 09/11/23
06:59 06:59 06:59
Intake Total 3760 / 3760 960 / 960
Output Total 2700 / 2700 1330 / 1330
Balance 1060 / 1060 -370 / -370
--- NOTE | 2023-09-10 11:54 | CM ---
indicated possible dc today.
Pt needs port placed today by IR.
Pt has r/L nephrostomy tubes.
Spoke with Aishwarya templeton at [facility] [phone].Notified her he has 2 neph tubes and Port being placed.
[place] restart [place]They [place] not have care port.
D[place]
PLAN Home with [facility] fax dc summary [phone] or [phone]
[2023-09-10 15:00] VITALS: BP 136/92
[2023-09-10] MEDS: DILAUDID 1 MG IV ×2 (15:21→21:33)
--- NOTE | 2023-09-10 15:47 | WOUNDNOTE ---
[facility] RN NOTE: Patient visited for leaking colostomy appliance. Stoma is budded with robles intact. Peristomal skin intact. Midline incision with adrian. Patient medicated for pain prior to appliance change. Ostomy changed with [place] barrier #
[id number], [place] seal and pouch number [id number]. Clean dressing applied to midline. Patient reports that ostomy has been functioning well at home and denies issues with leakage. He states appliance is changed 2 x week. Will continue to follow as needed.
[2023-09-10] MEDS: LOVENOX 40 MG SC (17:11)
[2023-09-10] MEDS: NEURONTIN PO (21:33)
[2023-09-10 23:25] VITALS: BP 134/90
[2023-09-11] MEDS: DILAUDID 6 MG PO ×4 (06:28→22:16)
[2023-09-11 06:33] LABS: Hematocrit 26.6 % (39.0-52.0); Hemoglobin 8.6 g/dL (13.0-18.0); Mean Corp Hgb Conc. 32.3 g/dL (33.0-37.0); Mean Corpuscular Hgb 22.8 pg (27.0-31.0); Mean Corpuscular Volume 70.6 fL (80.0-94.0); Mean Platelet Volume 10.6 fL (7.4-10.4); Platelet Count 253 10^3/uL (130-400); Red Blood Cell Count 3.77 10^6/uL (4.70-6.10); Red Cell Dist. Width 15.8 % (11.5-14.5)
--- NOTE | 2023-09-11 06:53 | W.PN.ONC2 ---
Today's Communication / Plan
-
Pain controlled. For PORT and outpt F/U to start chemoXRT.
Impression
Impression
Locally advanced rectal cancer, metastatic to retroperitoneal lymph nodes, pMMR
s/p extended right colectomy and Loop sigmoid colostomy creation 08/22/23
Rectoanal pain
Microcytic anemia, normal iron stores
Acute kidney injury, resolved
Bilateral ureteral obstruction from tumor with hydroureteronephrosis s/p B/L PCN
Plan
Plan
Pain mgmt: Duragesic patch 50 mcg Q3 d with Dilaudid 6 PO Q6 PRN breakthrough.
For Port placement in IR.
Outptatient F/U 09/16 to start 5FU CIV with XRT.
Awaiting XRT evaluation to plan the simulation. Their office aware.
Outpatient PET to assess extent of disease ordered.
Pathology to check KRAS, BRAF, NRAS, etc on biopsy specimen
Will arranged med onc f/u in next week or so to make plans to start treatment
Subjective/Objective
Chief Complaint
ACS Heme Onc
Subjective
Perirectal pain when meds wears off. He is trying to coordinate with radiation oncology
Vital Signs:
Vital Signs
Temp Pulse Resp BP Pulse Ox
98.2 F 84 18 134/90 98
09/10/23 23:25 09/10/23 23:25 09/10/23 23:25 09/10/23 23:25 09/10/23 23:25
Lab Results:
Laboratory Data
WBC 3.0 10^3/uL (4.8-10.8) L 09/11/23 05:12
Hgb 8.6 g/dL (13.0-18.0) L 09/11/23 05:12
Plt Count 253 10^3/uL (130-400) 09/11/23 05:12
eGFR > 60.00 09/10/23 06:03
Physical Exam
HEENT: No Jaundice
Cardiology: S1 and S2
Pulmonary: Clear
GI: Soft
[2023-09-11 06:54] LABS: Blood Urea Nitrogen 9 mg/dl (9-20); Calcium 8.7 mg/dl (8.4-10.2); Carbon Dioxide 27 mmol/L (22-30); Chloride 105 mmol/L (98-107); Estimated Creatinine Clearance 111 ml/min; Glucose 85 mg/dl (70-99); Potassium 4.3 mmol/L (3.5-5.1); Sodium 136 mmol/L (135-145); eGFR > 60.00
[2023-09-11 07:00] VITALS: BP 144/98
[2023-09-11] MEDS: NORVASC 5 MG PO (08:57)
--- NOTE | 2023-09-11 10:14 | CM ---
Pts port placed by IR shelbie for today.
Pt has r/L nephrostomy tubes.
Spoke with Aishwarya yokasta at [facility] [phone].Notified her he has 2 neph tubes and Port being placed.
She said they will restart [place]N at [place]They do not have care port.
Daughter will drive him home at [place].
PLAN Home with [facility] fax dc summary [phone] or [phone]
--- NOTE | 2023-09-11 10:17 | CM ---
Spoke with pt at bedside He said pain is better controlled.
He agrees with dc with [facility] .
Pts port placed by IR reschedules for today.
Pt has r/L nephrostomy tubes.
Spoke with Aishwarya templeton at [facility] [phone].Notified her he has 2 neph tubes and Port being placed.
She said they will restart VN at [place].They do not have care port.
Daughter will drive him [place] as per patient.
PLAN Home with [facility] fax dc summary [phone] or [phone]
--- NOTE | 2023-09-11 10:39 | W.DCSUMMARY ---
Discharge Summary
Discharge Data
Date of Admission: 08/22/23
Date of Discharge: 08/28/23
-
Pending Results: Yes
Additional Pending Results:
OR pathology
Hospital Course
47-year-old male presented to the ER on 08/22/2023 after he was sent from the clinic by Dr. Guerrero with a main complaint of anal pain and hemorrhoids. A CT of the abdomen and pelvis was performed which showed a large partially obstructing mucosal
based mass in the distal sigmoid colon and rectum consistent with rectosigmoid carcinoma, severe fecal distention of the sigmoid colon proximal to the obstruction with evidence of mild acute stercoral colitis, extensive metastatic retroperitoneal
lymphadenopathy, and severe mesorectal inflammation and mild mesorectal metastatic lymphadenopathy. The patient underwent surgery later that night with Dr. Guerrero. The procedure was a exploratory laparotomy, extended right colectomy, loop sigmoid
colostomy, and primary umbilical hernial repair. The following day the patient was out of bed. Wound care was consulted for ostomy teaching. An NG tube was in place. On postop day 2 the patient underwent an NG tube clamping trial and it was
removed. He was started on clears and eventually advance to a low residue diet after he had ostomy function. He was seen by medical oncology. On postop day 6 it was determined the patient could be discharged home. He was in quite a bit of pain
and was prescribed multiple pain medications. It was recommended he see a pain specialist as an outpatient and follow-up with oncology. He was discharged with a visiting nurse. Plans were discussed with the patient and his daughters. He is to
follow-up with Dr. Guerrero in the office in 2 weeks. His final pathology was pending upon discharge.
Discharge Plan
-
Referrals:
NONE,* [Family Provider] -
Prescriptions:
No Action
dibucaine 1 % Ointment
1 applic topical TID PRN (Reason: anal pain) 30 Days Qty: 30 0RF
gabapentin 300 mg Capsule
300 mg PO HS 30 Days Qty: 30 0RF
amlodipine 5 mg Tablet
5 mg PO .SEE BELOW
Patient Comments:
09/02/2023, prescribed daily but pt. takes dailyprn for high blood pressure.
acetaminophen [Tylenol Extra Strength] 500 mg Tablet
1,000 mg PO BIDPRN PRN (Reason: mild pain)
gabapentin 100 mg Capsule
100 mg PO DAILY
oxycodone 10 mg Tablet
10 mg PO Q6H PRN (Reason: severe pain)
Discharge Date and Time
Print Language: POLISH
[2023-09-11 15:00] VITALS: BP 125/84
--- NOTE | 2023-09-11 16:03 | W.PN.HOSP.TC ---
Today's Communication/Plan
-
Port placement soon
Assessment / Plan
Assessment / Plan
Physical Exam
General: Not in acute distress
HEENT: Normocephalic
Respiratory: Clear to Auscultation Bilaterally
Cardiac: Regular Rhythm and S1/S2
GI: Positive bowel sounds. Soft, Nontender and Ostomy
Genito-urinary: Other (Bilateral nephrostomy tubes with draining urine ). Scrotum with mild swelling but without erythema or tenderness.
Musculoskeletal: No Edema
Skin: Warm and Dry
Neuro: AAOx3
Psych: Calm and Intact Judgement/Insight

#CT Abdomen Pelvis (as per the radiologist's report)
IMPRESSION:
1. Mild bilateral hydronephrosis and mild proximal hydroureter, new compared to prior CT. Findings are likely related to ureteral narrowing/obstruction by large confluent retroperitoneal lymphadenopathy.
2. Extensive inguinal, pelvic, and retroperitoneal lymphadenopathy, likely malignant.
3. Status post left-sided colostomy with mucous fistula. Continued severe wall thickening of the rectum and distal sigmoid colon, likely related to the patient's known malignancy. No evidence of intestinal obstruction.
4. Small amount of abdominal free fluid adjacent to the liver and spleen, which may be postoperative or reactive. No intra-abdominal abscess formation appreciated.
#CT Chest (as per the radiologist's report)
IMPRESSION:
Moderate bilateral upper abdominal retrocrural and left para-aortic retroperitoneal lymphadenopathy consistent with metastatic disease
#MRI Pelvis (as per the radiologist's report)
IMPRESSION: Markedly limited exam due to patient discomfort with suboptimal (nearly nondiagnostic) image quality. The following is a best estimate of the extent of disease:
Stage: T 3b N 1b M1a
CRM: Likely threatened
Sphincter involvement: Yes
Suspicious extra mesorectal lymph nodes: Yes
#Ultrasound Peripheral Venous Lower Extremity Bilaterally
IMPRESSION:
1. No evidence of DVT from the common femoral through the upper calf veins on either side.
2. Bilateral inguinal lymphadenopathy, likely related to the patient's known malignancy. Inguinal lymphadenopathy was also seen on prior CT dated 09/02/2023.
#Right Femur X-ray
IMPRESSION: Minimal right hip osteoporosis. Stable
#Ultrasound Scrotum
IMPRESSION: Moderate complex left hydrocele.
Small complex right hydrocele

Assessment/Plan
# Bilateral ureteral obstruction and hydronephrosis status post successful placement of bilateral 8.5 Welsh percutaneous nephrostomy catheters.
# Bilateral hydroureteronephrosis appears to be extrinsic compression of ureters from the soft tissue masses due to known Bulky abdominal adenopathy
# Acute Kidney Injury - RESOLVED - secondary to obstructive uropathy (due to extrinsic compression of lymphadenopathy) status post bilateral percutaneous tube placement
SCr peaked at 2.6, was at 1.0 on admission, now back down to 0.9
s/p bilateral percutaneous nephrostomy tube placement by IR 4/5 which relieved obstruction and is draining urine
UA neg for UTI
Weaned off IV fluids
Uro on board
Renal on board
#Increasing swelling in the right thigh - possibly from patient's malignancy and associated lymphedema
-Possibly from patient's malignancy and associated lymphedema
-Lower extremity ultrasound negative for DVT
-X-ray of right femur results are above
-Might consider ortho consult and/or MRI of the right thigh and pelvis
#Scrotal Swelling and Pain
-Ultrasound planned as above
-As per urology nothing to do from urology standpoint for scrotum given patient's current state and planned oncologic treatment for met rectal ca, no indication to do anything surgical
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
# Bulky abdominal adenopathy/ Extensive metastatic retroperitoneal lymphadenopathy
# Rectoanal pain - Cancer related pain
s/p Extended right colectomy and Loop sigmoid colostomy creation 08/22/23
Pain control with Gabapentin, and also:
Continue IV Dilaudid 1 mg Q3H PRN for severe breakthrough pain
PO Dilaudid increased from 4 mg Q4H PRN to 6 mg Q4H PRN for unrelieved pain
Fentanyl patch 25 mg increased to 50 mg to better control pain
Onc on board, Outpt rad onc follow up
Staging imaging with CT chest noted Mod BL upper abdominal retrocrural and left para-aortic retroperitoneal lymphadenopathy consistent with metastatic disease, Stable.
MRI pelvis reviewed
Continue Xanax PRN for anxiety
For chemoport placement anticipated on September 10, 2023 or September 11, 2023
# Anemia - multifactorial (recent surgery, cancer)
# Essential hypertension
on Norvasc
DVT PPx: Lovenox -- if renal function becomes worse, will switch back to Heparin subq
Code: full
Anticipated Discharge: 24 - 48 hours
Subjective/Interval History
-
Date of Service: September 11, 2023
Patient was seen and examined. He was sleeping comfortably and denied any new symptoms or complaints.
Objective Data
-
Labs:
Laboratory Results
09/11/23 09/11/23
05:11 05:12
WBC 3.0 L
Hgb 8.6 L
Hct 26.6 L
Plt Count 253
Sodium 136
Potassium 4.3
Chloride 105
Carbon Dioxide 27
BUN 9
Creatinine 0.9
Glucose 85
Calcium 8.7
Vital Signs:
Vital Signs
Temp Pulse Resp BP Pulse Ox
98.4 F 91 18 144/98 96
09/11/23 07:00 09/11/23 07:00 09/11/23 07:00 09/11/23 08:57 09/11/23 09:09
I&O
09/10/23 09/11/23 09/12/23
06:59 06:59 06:59
Intake Total 960 / 960 1680 / 1680
Output Total 1330 / 1330 300 / 300 350 / 350
Balance -370 / -370 1380 / 1380 -350 / -350
[2023-09-11] MEDS: DILAUDID 1 MG IV ×2 (17:39→23:40)
[2023-09-11] MEDS: LOVENOX 40 MG SC (17:42)
[2023-09-11] MEDS: NEURONTIN PO (22:12)
[2023-09-11] MEDS: NUPERCAINAL 1% OINTMENT 1 APPLIC TOPICAL (22:17)
[2023-09-11 23:01] VITALS: BP 155/105
[2023-09-11] MEDS: FLUSH (NSS) 2 FLUSH IV (23:41)
[2023-09-12] MEDS: DILAUDID 6 MG PO ×3 (06:35→19:25)
[2023-09-12 07:00] VITALS: BP 167/98
[2023-09-12 07:54] LABS: Hematocrit 27.7 % (39.0-52.0); Hemoglobin 8.9 g/dL (13.0-18.0); Mean Corp Hgb Conc. 32.1 g/dL (33.0-37.0); Mean Corpuscular Hgb 22.8 pg (27.0-31.0); Mean Corpuscular Volume 70.8 fL (80.0-94.0); Mean Platelet Volume 10.5 fL (7.4-10.4); Platelet Count 239 10^3/uL (130-400); Red Blood Cell Count 3.91 10^6/uL (4.70-6.10); Red Cell Dist. Width 15.8 % (11.5-14.5); White Blood Cell Count 2.8 10^3/uL (4.8-10.8)
[2023-09-12] MEDS: DILAUDID 1 MG IV ×3 (07:56→21:04)
[2023-09-12] MEDS: NORVASC 5 MG PO (08:02)
[2023-09-12 08:17] LABS: Blood Urea Nitrogen 7 mg/dl (9-20); Carbon Dioxide 29 mmol/L (22-30); Chloride 105 mmol/L (98-107); Estimated Creatinine Clearance 111 ml/min; Glucose 85 mg/dl (70-99); Sodium 136 mmol/L (135-145); eGFR > 60.00
--- NOTE | 2023-09-12 10:54 | W.PN.ONC ---
Today's Communication / Plan
-
Patient has arrangements to be followed up as an outpatient
Will manage need for pain titration during office visit
Anticipate discharge
Impression
Impression
Locally advanced rectal cancer, metastatic to retroperitoneal lymph nodes, pMMR
s/p extended right colectomy and Loop sigmoid colostomy creation 08/22/23
Rectoanal pain
Microcytic anemia, normal iron stores
Acute kidney injury, resolved
Bilateral ureteral obstruction from tumor with hydroureteronephrosis s/p B/L PCN
Plan
Plan
Pain mgmt: Duragesic patch 50 mcg Q3 d with Dilaudid 6 PO Q6 PRN breakthrough.
For Port placement in IR.
Outptatient F/U 09/16 to start 5FU CIV with XRT.
Awaiting XRT evaluation to plan the simulation. Their office aware.
Outpatient PET to assess extent of disease ordered.
Pathology to check KRAS, BRAF, NRAS, etc on biopsy specimen
Will arranged med onc f/u in next week or so to make plans to start treatment
Subjective/Objective
Subjective/Objective
Continues to have similar pain
Vital Signs:
Vital Signs
Temp Pulse Resp BP Pulse Ox
98.4 F 84 20 167/98 99
09/12/23 07:00 09/12/23 08:02 09/12/23 07:00 09/12/23 08:02 09/12/23 07:00
Physical exam unchanged
Lab Results:
Laboratory Data
WBC 2.8 10^3/uL (4.8-10.8) L 09/12/23 07:23
Hgb 8.9 g/dL (13.0-18.0) L 09/12/23 07:23
Plt Count 239 10^3/uL (130-400) 09/12/23 07:23
eGFR > 60.00 09/12/23 07:23
[2023-09-12 11:00] VITALS: BP 144/93; BP_SYST 83
--- NOTE | 2023-09-12 11:04 | W.PN.HOSP.TC ---
Today's Communication/Plan
-
Port placement today, patient has no transportation available to his home until 7 am tomorrow
Anticipated discharge tomorrow
Assessment / Plan
Assessment / Plan
Physical Exam
General: Not in acute distress
HEENT: Normocephalic
Respiratory: Clear to Auscultation Bilaterally
Cardiac: Regular Rhythm and S1/S2
GI: Positive bowel sounds. Soft, Nontender and Ostomy
Genito-urinary: Other (Bilateral nephrostomy tubes with draining urine ). Scrotum with mild swelling but without erythema or tenderness.
Musculoskeletal: No Edema
Skin: Warm and Dry
Neuro: AAOx3
Psych: Calm and Intact Judgement/Insight

#CT Abdomen Pelvis (as per the radiologist's report)
IMPRESSION:
1. Mild bilateral hydronephrosis and mild proximal hydroureter, new compared to prior CT. Findings are likely related to ureteral narrowing/obstruction by large confluent retroperitoneal lymphadenopathy.
2. Extensive inguinal, pelvic, and retroperitoneal lymphadenopathy, likely malignant.
3. Status post left-sided colostomy with mucous fistula. Continued severe wall thickening of the rectum and distal sigmoid colon, likely related to the patient's known malignancy. No evidence of intestinal obstruction.
4. Small amount of abdominal free fluid adjacent to the liver and spleen, which may be postoperative or reactive. No intra-abdominal abscess formation appreciated.
#CT Chest (as per the radiologist's report)
IMPRESSION:
Moderate bilateral upper abdominal retrocrural and left para-aortic retroperitoneal lymphadenopathy consistent with metastatic disease
#MRI Pelvis (as per the radiologist's report)
IMPRESSION: Markedly limited exam due to patient discomfort with suboptimal (nearly nondiagnostic) image quality. The following is a best estimate of the extent of disease:
Stage: T 3b N 1b M1a
CRM: Likely threatened
Sphincter involvement: Yes
Suspicious extra mesorectal lymph nodes: Yes
#Ultrasound Peripheral Venous Lower Extremity Bilaterally
IMPRESSION:
1. No evidence of DVT from the common femoral through the upper calf veins on either side.
2. Bilateral inguinal lymphadenopathy, likely related to the patient's known malignancy. Inguinal lymphadenopathy was also seen on prior CT dated 09/02/2023.
#Right Femur X-ray
IMPRESSION: Minimal right hip osteoporosis. Stable
#Ultrasound Scrotum
IMPRESSION: Moderate complex left hydrocele.
Small complex right hydrocele

Assessment/Plan
# Bilateral ureteral obstruction and hydronephrosis status post successful placement of bilateral 8.5 [place] percutaneous nephrostomy catheters.
# Bilateral hydroureteronephrosis appears to be extrinsic compression of ureters from the soft tissue masses due to known Bulky abdominal adenopathy
# Acute Kidney Injury - RESOLVED - secondary to obstructive uropathy (due to extrinsic compression of lymphadenopathy) status post bilateral percutaneous tube placement
SCr peaked at 2.6, was at 1.0 on admission, now back down to 0.9
s/p bilateral percutaneous nephrostomy tube placement by IR 4/ which relieved obstruction and is draining urine
UA neg for UTI
Weaned off IV fluids
Uro on board
Renal on board
#Increasing swelling in the right thigh - possibly from patient's malignancy and associated lymphedema
-Possibly from patient's malignancy and associated lymphedema
-Lower extremity ultrasound negative for DVT
-X-ray of right femur results are above
-Might consider ortho consult and/or MRI of the right thigh and pelvis
#Scrotal Swelling and Pain - IMPROVED
-Ultrasound planned as above
-As per urology nothing to do from urology standpoint for scrotum given patient's current state and planned oncologic treatment for met rectal ca, no indication to do anything surgical
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
# Bulky abdominal adenopathy/ Extensive metastatic retroperitoneal lymphadenopathy
# Rectoanal pain - Cancer related pain
s/p Extended right colectomy and Loop sigmoid colostomy creation 08/22/23
Pain control with Gabapentin, and also:
Continue IV Dilaudid 1 mg Q3H PRN for severe breakthrough pain
PO Dilaudid increased from 4 mg Q4H PRN to 6 mg Q4H PRN for unrelieved pain -- continue Dilaudid 6 PO Q6 PRN breakthrough pain
Fentanyl patch 25 mg increased to 50 mg to better control pain -- continue 50 mcg at Q3D
Onc on board, Outpt rad onc follow up
Staging imaging with CT chest noted Mod BL upper abdominal retrocrural and left para-aortic retroperitoneal lymphadenopathy consistent with metastatic disease, Stable.
MRI pelvis reviewed
Continue Xanax PRN for anxiety
For chemoport placement today
Oncology will send patient's pain medications to patient's pharmacy
# Anemia - multifactorial (recent surgery, cancer)
# Essential hypertension
on Norvasc
DVT PPx: Lovenox -- if renal function becomes worse, will switch back to Heparin subq
Code: full
Anticipated Discharge: Today
Subjective/Interval History
-
Date of Service: September 12, 2023
Patient was seen and examined. He reported essentially no pain, port placement is scheduled for today.
Objective Data
-
Labs:
Laboratory Results
09/12/23
07:23
WBC 2.8 L
Hgb 8.9 L
Hct 27.7 L
Plt Count 239
Sodium 136
Potassium 5.0
Chloride 105
Carbon Dioxide 29
BUN 7 L
Creatinine 0.9
Glucose 85
Calcium 9.0
Vital Signs:
Vital Signs
Temp Pulse Resp BP Pulse Ox
98.4 F 84 20 167/98 99
09/12/23 07:00 09/12/23 08:02 09/12/23 07:00 09/12/23 08:02 09/12/23 07:00
I&O
09/11/23 09/12/23 09/13/23
06:59 06:59 06:59
Intake Total 1680 / 1680 480 / 480
Output Total 300 / 300 1540 / 1540
Balance 1380 / 1380 -1060 / -1060
[2023-09-12] MEDS: DURAGESIC 50 MCG/HR PATCH 1 PATCH TRANSDERM (13:42)
--- NOTE | 2023-09-12 13:49 | CM ---
Addendum entered by Manda Arellano, RN 09/12/23 15:21:
Pt not discharged today.
Original Note:
indicated patient ready for dc today.
Pt has r/L nephrostomy tubes.
Spoke with Aishwarya templeton at [facility] [phone].Notified her he has 2 neph tubes and Port being placed.
She said they will restart VN at ok.They do not have care port.
Daughter will drive him home at ok as per patient.
As per [facility] will write his pain med regime after dc.
PLAN Home with [facility] fax dc summary [phone] or [phone]
[2023-09-12] MEDS: ANCEF 10 IV (14:16)
[2023-09-12 15:00] VITALS: BP 115/71
[2023-09-12] MEDS: LOVENOX 40 MG SC (19:25)
[2023-09-12] MEDS: FLUSH (NSS) 2 FLUSH IV (21:05)
[2023-09-12] MEDS: NEURONTIN PO (21:05)
[2023-09-12 23:00] VITALS: BP 137/99
[2023-09-13] MEDS: DILAUDID 6 MG PO ×2 (02:44→08:22)
[2023-09-13] MEDS: FLUSH (NSS) 2 FLUSH IV (03:58)
[2023-09-13] MEDS: DILAUDID 1 MG IV ×2 (03:58→10:12)
[2023-09-13 05:46] LABS: Hematocrit 28.9 % (39.0-52.0); Mean Corp Hgb Conc. 31.1 g/dL (33.0-37.0); Mean Corpuscular Hgb 22.4 pg (27.0-31.0); Mean Corpuscular Volume 72.1 fL (80.0-94.0); Mean Platelet Volume 10.8 fL (7.4-10.4); Platelet Count 242 10^3/uL (130-400); Red Blood Cell Count 4.01 10^6/uL (4.70-6.10); Red Cell Dist. Width 15.6 % (11.5-14.5); White Blood Cell Count 3.2 10^3/uL (4.8-10.8)
[2023-09-13 06:14] LABS: Blood Urea Nitrogen 9 mg/dl (9-20); Calcium 9.1 mg/dl (8.4-10.2); Carbon Dioxide 27 mmol/L (22-30); Chloride 101 mmol/L (98-107); Estimated Creatinine Clearance 111 ml/min; Glucose 77 mg/dl (70-99); Potassium 4.2 mmol/L (3.5-5.1); Sodium 136 mmol/L (135-145); eGFR > 60.00
[2023-09-13 07:30] VITALS: BP 143/87
[2023-09-13] MEDS: NORVASC 5 MG PO (08:16)
--- NOTE | 2023-09-13 10:15 | W.PN.HOSP.TC ---
Today's Communication/Plan
-
Discharge today
Assessment / Plan
Assessment / Plan
Physical Exam
General: Not in acute distress
HEENT: Normocephalic
Respiratory: Clear to Auscultation Bilaterally
Cardiac: Regular Rhythm and S1/S2
GI: Positive bowel sounds. Soft, Nontender and Ostomy
Genito-urinary: Other (Bilateral nephrostomy tubes with draining urine ).
Musculoskeletal: No Edema
Skin: Warm and Dry
Neuro: AAOx3
Psych: Calm and Intact Judgement/Insight

#CT Abdomen Pelvis (as per the radiologist's report)
IMPRESSION:
1. Mild bilateral hydronephrosis and mild proximal hydroureter, new compared to prior CT. Findings are likely related to ureteral narrowing/obstruction by large confluent retroperitoneal lymphadenopathy.
2. Extensive inguinal, pelvic, and retroperitoneal lymphadenopathy, likely malignant.
3. Status post left-sided colostomy with mucous fistula. Continued severe wall thickening of the rectum and distal sigmoid colon, likely related to the patient's known malignancy. No evidence of intestinal obstruction.
4. Small amount of abdominal free fluid adjacent to the liver and spleen, which may be postoperative or reactive. No intra-abdominal abscess formation appreciated.
#CT Chest (as per the radiologist's report)
IMPRESSION:
Moderate bilateral upper abdominal retrocrural and left para-aortic retroperitoneal lymphadenopathy consistent with metastatic disease
#MRI Pelvis (as per the radiologist's report)
IMPRESSION: Markedly limited exam due to patient discomfort with suboptimal (nearly nondiagnostic) image quality. The following is a best estimate of the extent of disease:
Stage: T 3b N 1b M1a
CRM: Likely threatened
Sphincter involvement: Yes
Suspicious extra mesorectal lymph nodes: Yes
#Ultrasound Peripheral Venous Lower Extremity Bilaterally
IMPRESSION:
1. No evidence of DVT from the common femoral through the upper calf veins on either side.
2. Bilateral inguinal lymphadenopathy, likely related to the patient's known malignancy. Inguinal lymphadenopathy was also seen on prior CT dated 09/02/2023.
#Right Femur X-ray
IMPRESSION: Minimal right hip osteoporosis. Stable
#Ultrasound Scrotum
IMPRESSION: Moderate complex left hydrocele.
Small complex right hydrocele

Assessment/Plan
# Bilateral ureteral obstruction and hydronephrosis status post successful placement of bilateral 8.5 English percutaneous nephrostomy catheters.
# Bilateral hydroureteronephrosis appears to be extrinsic compression of ureters from the soft tissue masses due to known Bulky abdominal adenopathy
# Acute Kidney Injury - RESOLVED - secondary to obstructive uropathy (due to extrinsic compression of lymphadenopathy) status post bilateral percutaneous tube placement
SCr peaked at 2.6, was at 1.0 on admission, now back down to 0.9
s/p bilateral percutaneous nephrostomy tube placement by IR 4/5 which relieved obstruction and is draining urine
UA neg for UTI
Weaned off IV fluids
Uro on board
Renal on board
#Increasing swelling in the right thigh - possibly from patient's malignancy and associated lymphedema
-Possibly from patient's malignancy and associated lymphedema
-Lower extremity ultrasound negative for DVT
-X-ray of right femur results are above
-Might consider ortho consult and/or MRI of the right thigh and pelvis
#Scrotal Swelling and Pain - IMPROVED
-Ultrasound planned as above
-As per urology nothing to do from urology standpoint for scrotum given patient's current state and planned oncologic treatment for met rectal ca, no indication to do anything surgical
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
# Bulky abdominal adenopathy/ Extensive metastatic retroperitoneal lymphadenopathy
# Rectoanal pain - Cancer related pain
s/p Extended right colectomy and Loop sigmoid colostomy creation 08/22/23
Pain control with Gabapentin, and also:
Continue IV Dilaudid 1 mg Q3H PRN for severe breakthrough pain
PO Dilaudid increased from 4 mg Q4H PRN to 6 mg Q4H PRN for unrelieved pain -- continue Dilaudid 6 PO Q6 PRN breakthrough pain
Fentanyl patch 25 mg increased to 50 mg to better control pain -- continue 50 mcg at Q3D
Onc on board, Outpt rad onc follow up
Staging imaging with CT chest noted Mod BL upper abdominal retrocrural and left para-aortic retroperitoneal lymphadenopathy consistent with metastatic disease, Stable.
MRI pelvis reviewed
Continue Xanax PRN for anxiety
Status post chemoport placement on 09/12/23
# Anemia - multifactorial (recent surgery, cancer)
# Essential hypertension
on Norvasc
DVT PPx: Lovenox
Code: full
More than 30 minutes spent in discharge including
Final examination of the patient
Summarizing hospital stay
Instructions for continuing care to all relevant caregivers
Preparation of discharge records, prescriptions, and referral forms
Total time spent (in minutes): 38
Anticipated Discharge: Today
Subjective/Interval History
-
Date of Service: September 13, 2023
Patient was seen and examined. He reported pain 01/10, is due for pain medication.
Objective Data
-
Labs:
Laboratory Results
09/13/23 09/13/23
05:25 05:26
WBC 3.2 L
Hgb 9.0 L
Hct 28.9 L
Plt Count 242
Sodium 136
Potassium 4.2
Chloride 101
Carbon Dioxide 27
BUN 9
Creatinine 0.9
Glucose 77
Calcium 9.1
Vital Signs:
Vital Signs
Temp Pulse Resp BP Pulse Ox
98.1 F 83 16 143/87 97
09/13/23 07:30 09/13/23 08:16 09/13/23 07:30 09/13/23 08:16 09/13/23 07:30
I&O
09/12/23 09/13/23 09/14/23
06:59 06:59 06:59
Intake Total 480 / 480 1200 / 1200 480 / 480
Output Total 1540 / 1540 500 / 500 2100 / 2100
Balance -1060 / -1060 700 / 700 -1620 / -1620
--- NOTE | 2023-09-13 10:35 | W.DS.TRANS ---
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
-
Discharge Instructions:
Discharge Diagnosis/Procedures # Bilateral ureteral obstruction and
hydronephrosis status post successful placement
of bilateral 8.5 Samoan percutaneous nephrostomy
catheters.
# Bilateral hydroureteronephrosis appears to be
extrinsic compression of ureters from the soft
tissue masses due to known Bulky abdominal
adenopathy
# Acute Kidney Injury - RESOLVED - secondary to
obstructive uropathy (due to extrinsic
compression of lymphadenopathy) status post
bilateral percutaneous tube placement
#Increasing swelling in the right thigh -
possibly from patient's malignancy and
associated lymphedema
#Scrotal Swelling and Pain - IMPROVED
# Rectal cancer with Poorly differentiated
carcinoma involving colonic mucosa and submucosa
# Bulky abdominal adenopathy/ Extensive
metastatic retroperitoneal lymphadenopathy
# Rectoanal pain - Cancer related pain
s/p Extended right colectomy and Loop sigmoid
colostomy creation 08/22/23
# Anemia - multifactorial (recent surgery,
cancer)
# Essential hypertension
#CT Abdomen Pelvis (as per the radiologist's
report)
IMPRESSION:
1. Mild bilateral hydronephrosis and mild
proximal hydroureter, new compared to prior CT.
Findings are likely related to ureteral
narrowing/obstruction by large confluent
retroperitoneal lymphadenopathy.
2. Extensive inguinal, pelvic, and
retroperitoneal lymphadenopathy, likely
malignant.
3. Status post left-sided colostomy with mucous
fistula. Continued severe wall thickening of the
rectum and distal sigmoid colon, likely related
to the patient's known malignancy. No evidence
of intestinal obstruction.
4. Small amount of abdominal free fluid adjacent
to the liver and spleen, which may be
postoperative or reactive. No intra-abdominal
abscess formation appreciated.
#CT Chest (as per the radiologist's report)
IMPRESSION:
Moderate bilateral upper abdominal retrocrural
and left para-aortic retroperitoneal
lymphadenopathy consistent with metastatic
disease
#MRI Pelvis (as per the radiologist's report)
IMPRESSION: Markedly limited exam due to patient
discomfort with suboptimal (nearly
nondiagnostic) image quality. The following is a
best estimate of the extent of disease:
Stage: T 3b N 1b M1a
CRM: Likely threatened
Sphincter involvement: Yes
Suspicious extra mesorectal lymph nodes: Yes
#Ultrasound Peripheral Venous Lower Extremity
Bilaterally
IMPRESSION:
1. No evidence of DVT from the common femoral
through the upper calf veins on either side.
2. Bilateral inguinal lymphadenopathy, likely
related to the patient's known malignancy.
Inguinal lymphadenopathy was also seen on prior
CT dated 09/02/2023.
#Right Femur X-ray
IMPRESSION: Minimal right hip osteoporosis.
Stable
#Ultrasound Scrotum
IMPRESSION: Moderate complex left hydrocele.
Small complex right hydrocele
Diet As tolerated,Regular
Activity No strenuous activity
Additional Activity No lifting over 10lbs (gallon of milk)
Bathing Restrictions OK to Shower
Wound Care Steve will be removed at your office visit
with Dr. Guerrero. Your stoma robles will be removed
at the office visit with Dr. Guerrero. Change
dressing daily with 4x4 gauze and tape. Okay
to leave open to air when showering. Let water
run off the incision.
Instructions:
Stand-Alone Forms:
Changes to Home Medications: Yes
Discharge Medications:
DC Medications w/original date entered in [facility]
dibucaine 1 % topical ointment 1 applic topical TID PRN anal pain 30 days #30 grams 08/28/23
gabapentin 300 mg capsule 300 mg PO HS 30 days #30 caps 08/28/23
acetaminophen 500 mg tablet (Tylenol Extra Strength) 1,000 mg PO BIDPRN PRN mild pain 09/02/23
gabapentin 100 mg capsule 100 mg PO DAILY Pain 09/02/23
amlodipine 5 mg tablet 5 mg PO DAILY Blood Pressure #0 tabs 09/13/23
fentanyl 50 mcg/hr transdermal patch 1 patch transdermal Q72H #5 ea 09/13/23
hydromorphone 2 mg tablet 6 mg (3 x 2 mg) PO Q4HPRN PRN pain #7 tabs 09/13/23
Home Medication Changes
Fentanyl patch and Hydromorphone are new medications (your oncology can prescribe)
Oxycodone discontinued
Pending Results: Yes
Additional Pending Results:
Pathology results
Total time spent discharging patient (in min): 38
--- NOTE | 2023-09-13 10:39 | CM ---
entered order for discharge.
Pt has r/L nephrostomy tubes.
Spoke with Aishwarya templeton at [facility] [phone] aware pt is dc.Notified her he has 2 neph tubes and Port being placed.
She said they will restart VN at de.They do not have care port.
As per [facility] oncology will get pts medicines authorized as needed.
Daughter will drive him home at de as per patient.
PLAN Home with [facility] VN fax dc summary [phone]
--- NOTE | 2023-09-13 10:56 | WOUNDNOTE ---
[facility] RN NOTE: Patient for discharge to home with VN today. Ostomy pouch intact and ostomy supplies given for home, as patient stated VN has not ordered supplies yet. Patient and family given info on ordering supplies. All questions answered.
--- NOTE | 2023-09-13 15:00 | WOUNDNOTE ---
[facility] RN note: [facility] RN Aster mentioned patient told her this admission that he did not receive his [place] ostomy secure starter kit. t/c Spoke with Chelle from [employer] who confirmed ostomy secure starter kit was ordered previously and it was
delivered it on 08/09/23. Chelle stated she will call patient to make sure he received the ostomy starter kit.
--- NOTE | 2023-09-19 09:01 | W.DCSUMMARY ---
Discharge Summary
Discharge Data
Date of Admission: 09/02/23
Date of Discharge: 09/13/23
Total time spent discharging patient (in min): 38
-
Pending Results: Yes
Additional Pending Results:
Pathology results
Hospital Course
47 y/o male with recent extended right colectomy and loop sigmoid colostomy creation for large bowel wall obstruction due to rectal mass who was admitted after presenting with abdominal and rectal pain, as well as decreased oral intake. Patient
indicated that he was unable to obtain his narcotic pain medications due to some issue with his insurance and that gabapentin was making it worse. General surgery and urology were consulted. On the patient's CT imaging, there appeared to be
bilateral hydronephrosis due to tumor effects on his ureters. Urology recommended no indication for nephrostomy tube at the time time, given the absence of symptoms of obstructive uropathy and normal renal function and to consider bilateral
percutaneous nephrostomy placement by interventional radiology if renal function deteriorates. Oncology was consulted and ordered and increased patient's narcotic pain medications, and patient's had significant improvements in his pain.
Patient had acute kidney injury, intravenous fluids were started, and interventional radiology was consulted for percutaneous nephrostomy tube placement and on September 06, 2023, patient had successful placement of bilateral 8.5 Arabic percutaneous
nephrostomy catheters as per interventional radiology report. Nephrology was also consulted for patient's acute kidney injury.
Patient noticed increasing swelling in his right thigh as well as scrotum, imaging was done, and it was determined these findings were related to his cancer and it's compressive effects.
Patient had his PORT placed by IR on 09/12/23. He was scheduled to see oncology on the same day right after discharge.
Discharge Plan
-
Patient Disposition: Home with Home Care
Discharge Diagnosis/Procedures: # Bilateral ureteral obstruction and hydronephrosis status post successful placement of bilateral 8.5 Arabic percutaneous nephrostomy catheters.
# Bilateral hydroureteronephrosis appears to be extrinsic compression of ureters from the soft tissue masses due to known Bulky abdominal adenopathy
# Acute Kidney Injury - RESOLVED - secondary to obstructive uropathy (due to extrinsic compression of lymphadenopathy) status post bilateral percutaneous tube placement
#Increasing swelling in the right thigh - possibly from patient's malignancy and associated lymphedema
#Scrotal Swelling and Pain - IMPROVED
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
# Bulky abdominal adenopathy/ Extensive metastatic retroperitoneal lymphadenopathy
# Rectoanal pain - Cancer related pain
s/p Extended right colectomy and Loop sigmoid colostomy creation 08/22/23
# Anemia - multifactorial (recent surgery, cancer)
# Essential hypertension
#CT Abdomen Pelvis (as per the radiologist's report)
IMPRESSION:
1. Mild bilateral hydronephrosis and mild proximal hydroureter, new compared to prior CT. Findings are likely related to ureteral narrowing/obstruction by large confluent retroperitoneal lymphadenopathy.
2. Extensive inguinal, pelvic, and retroperitoneal lymphadenopathy, likely malignant.
3. Status post left-sided colostomy with mucous fistula. Continued severe wall thickening of the rectum and distal sigmoid colon, likely related to the patient's known malignancy. No evidence of intestinal obstruction.
4. Small amount of abdominal free fluid adjacent to the liver and spleen, which may be postoperative or reactive. No intra-abdominal abscess formation appreciated.
#CT Chest (as per the radiologist's report)
IMPRESSION:
Moderate bilateral upper abdominal retrocrural and left para-aortic retroperitoneal lymphadenopathy consistent with metastatic disease
#MRI Pelvis (as per the radiologist's report)
IMPRESSION: Markedly limited exam due to patient discomfort with suboptimal (nearly nondiagnostic) image quality. The following is a best estimate of the extent of disease:
Stage: T 3b N 1b M1a
CRM: Likely threatened
Sphincter involvement: Yes
Suspicious extra mesorectal lymph nodes: Yes
#Ultrasound Peripheral Venous Lower Extremity Bilaterally
IMPRESSION:
1. No evidence of DVT from the common femoral through the upper calf veins on either side.
2. Bilateral inguinal lymphadenopathy, likely related to the patient's known malignancy. Inguinal lymphadenopathy was also seen on prior CT dated 09/02/2023.
#Right Femur X-ray
IMPRESSION: Minimal right hip osteoporosis. Stable
#Ultrasound Scrotum
IMPRESSION: Moderate complex left hydrocele.
Small complex right hydrocele
Condition: Fair
Diet: As tolerated and Regular
Activity: No strenuous activity
Additional Activity: No lifting over 10lbs (gallon of milk)
Bathing Restrictions: OK to Shower
Wound Care: [place] will be removed at your office visit with Dr. Guerrero. Your stoma robles will be removed at the office visit with Dr. Guerrero. Change dressing daily with 4x4 gauze and tape. Okay to leave open to air when showering. Let water run
off the incision.
Activity Restrictions/Additional Instructions:
Wound Care Instructions Colostomy supplies: 4 inch Johnny wafer # [id number], Tiesha seal and Stanford pouch # [id number]. Change 2 times a week and as needed for leakage. Apply double layer of Tiesha seal along inferior medial peristomal edge if needed
for skin dip. If/when stoma shrinks to 2 1/4' or small, can swtich to 2 3/4inch Johnny wafer # [id number], tiesha seal and Stanford pouch # [id number]. If yeasty red rash develops peristomally, apply light dusting of over the counter 2% miconazole powder
followed by no sting barrier wipe with each wafer change.
Call supply [id number] (list in folder provided) for monthly Ostomy supplies after discharge (ask VN to order supplies while on service).
Follow up with surgeon.
Call [facility] RN nurse for ostomy pouching concerns or leakage problems [phone] or [phone] or [phone].
Dr[address] Tricia Deleon and Dr. Nadir London will obtain insurance prior authorization and prescribe your narcotic pain medications: Dilaudid 6 PO Q6 PRN breakthrough pain
and Fentanyl patch 50 mcg at Q3D
Referrals:
Ghanshyam Guerrero MD [Active] - in one week
Alyssa Banks MD [Active] - in less than 1 week
NONE,* [Family Provider] -
Additional Discharge Medication Instructions: Fentanyl patch and Hydromorphone are new medications (your oncology can prescribe)
Oxycodone discontinued
Prescriptions:
New
hydromorphone 2 mg Tablet
6 mg PO Q4HPRN PRN (Reason: pain) Qty: 7 0RF
fentanyl 50 mcg/hr Patch 72 Hour
1 patch transdermal Q72H Qty: 5 0RF
Continued
dibucaine 1 % Ointment
1 applic topical TID PRN (Reason: anal pain) 30 Days Qty: 30 0RF
gabapentin 300 mg Capsule
300 mg PO HS 30 Days Qty: 30 0RF
acetaminophen [Tylenol Extra Strength] 500 mg Tablet
1,000 mg PO BIDPRN PRN (Reason: mild pain)
gabapentin 100 mg Capsule
100 mg PO DAILY
Changed
amlodipine 5 mg Tablet
5 mg PO DAILY Qty: 0 0RF
Patient Comments:
09/02/2023, prescribed daily but pt. takes dailyprn for high blood pressure.
Discontinued
oxycodone 10 mg Tablet
10 mg PO Q6H PRN (Reason: severe pain)
Discharge Orders:
Discharge Patient (As Directed); Ordered 09/13/23
Ordered By: Marciano Glynn
Discharge Date and Time
Discharge Date/Time: 09/13/23 11:08
Print Language: SURINAMESE
== END 2023-09-13 11:08 | disposition home health service (06) | DRG 694 ==
LOC: 3 WEST ACU 03:18
PROVIDERS: Internal Medicine; Radiology Vascular & Interventional Radiology; Student in an Organized Health Care Education/Training Program; ADMITTING PHYSICIAN Internal Medicine; ATTENDING PHYSICIAN Hospitalist; CONSULT PHYSICIAN Internal Medicine; CONSULT PHYSICIAN Internal Medicine Hematology & Oncology; CONSULT PHYSICIAN Surgery; EMERGENCY PHYSICIAN Emergency Medicine
PROC: 0T9130Z Drainage of Left Kidney with Drainage Device, Percutaneous Approach (ICD-10-PCS; 2023-09-06)
PROC: 0T9030Z Drainage of Right Kidney with Drainage Device, Percutaneous Approach (ICD-10-PCS; 2023-09-06)
PROC: 0JH63WZ Insertion of Totally Implantable Vascular Access Device into Chest Subcutaneous Tissue and Fascia, Percutaneous Approach (ICD-10-PCS; 2023-09-12)
PROC: 05HM33Z Insertion of Infusion Device into Right Internal Jugular Vein, Percutaneous Approach (ICD-10-PCS; 2023-09-12)
DX: N13.1 Hydronephrosis with ureteral stricture, not elsewhere classified (principal); C20 Malignant neoplasm of rectum; C77.2 Secondary and unspecified malignant neoplasm of intra-abdominal lymph nodes; E87.20 Acidosis, unspecified; N17.9 Acute kidney failure, unspecified; I10 Essential (primary) hypertension; G89.3 Neoplasm related pain (acute) (chronic); D50.8 Other iron deficiency anemias; Z93.3 Colostomy status
CPT/HCPCS: 36561; 50432; 71260; 72197; 73552; 74177; 76870; 76937; 77001; 80048; 80053; 81003; 82248; 85025; 85027; 93970; 93976; 96361; 96374; 96375; 96376; 99152; 99153; 99285; A9575; C1729; C1769; C1788; Q9967